=== PATIENT | female | born 1950 | race African-American/Black ===

== ENCOUNTER 2016-11-24 10:01 | Emergency (ER) | payer MEDICARE, MEDICAID ==
[~2016-11-24] VITALS: Ht 172.7 cm; Wt 109.0 kg
[~2016-11-24 10:01] MED LIST: ALBU17AE26 PO; ASPI-1159 PO; FLUT1DIS3 IH; HYDR-519 PO; LISI-651 PO; METH4TAB3 PO; MOME13HF2 INH; MONT10TA21 PO; OXYGEN; PHEN473S12 PO; TIOT18CA3 INH; ZOLP10TA2 PO
[2016-11-24] MEDS ORDERED: IPRATROPIUM BROMIDE (0.02%) 0.5MG/2.5ML NEB HHN STA (10:21)
[2016-11-24] MEDS ORDERED: METHYLPREDNISOLONE SOD SUCC 125 MG/2 ML VIAL IV STA (10:21)
[2016-11-24 10:58] LABS: BASOPHILS % 0.2 % (0.0-2.0); EOSINOPHILS % 0.1 % (0.0-5.0); HEMATOCRIT. 34.4 % (36.0-48.0); HEMOGLOBIN. 10.6 g/dL (12.0-16.0); LYMPHOCYTES % 10.6 % (20.0-50.0); MEAN CORPUSCULAR HEMOGLOBIN 23.5 pg (28.0-32.0); MEAN CORPUSCULAR VOLUME 75.8 fL (81.0-99.0); MEAN PLATELET VOLUME 7.7 fl (7.4-10.4); MONOCYTES % 7.6 % (2.0-8.0); NEUTROPHILS % 81.5 % (40.0-76.0); PLATELET 220 x1000/uL (130-400); RED BLOOD CELL COUNT 4.54 mill/uL (4.2-5.4); RED CELL DISTRIBUTION WIDTH 18.7 % (11.6-14.6)
[2016-11-24 11:04] LABS: CHLORIDE 107 mEq/L (98-107)
[2016-11-24 11:06] LABS: PROTHROMBIN TIME 10.7 sec
[2016-11-24 11:12] LABS: CARBON DIOXIDE 32 mEq/L (21-32)
[2016-11-24] MEDS: ALBUTEROL (0.083%) 2.5MG/3ML NEB HHN SCH ×3 (11:25→12:30)
[2016-11-24] MEDS ORDERED: HYDROCODONE/ACETAMINOPHEN 5/325MG TABLET PO ONE (12:00)
[2016-11-24 13:12] VITALS: BP 150/92
== END 2016-11-24 13:15 | disposition home or self-care (01) ==
LOC: ER 10:12
DX: J44.1 Chronic obstructive pulmonary disease with (acute) exacerbation (principal); I10 Essential (primary) hypertension; M19.90 Unspecified osteoarthritis, unspecified site; J45.909 Unspecified asthma, uncomplicated; Z79.82 Long term (current) use of aspirin; Z91.040 Latex allergy status
CPT/HCPCS: 36415; 71010; 80053; 85025; 85610; 93005; 94640; 96374; 99285; J2930; J7611

== ENCOUNTER 2017-11-24 10:54 | Inpatient (IN) | payer MEDICARE, MEDICAID ==
[~2017-11-24] VITALS: Ht 170.2 cm; Wt 104.3 kg
[2017-11-24] MEDS ORDERED: ASPIRIN 81MG TABLET PO STA (11:32)
[2017-11-24] MEDS ORDERED: METHYLPREDNISOLONE SOD SUCC 125 MG/2 ML VIAL IV STA (11:32)
[2017-11-24] MEDS ORDERED: ALBUTEROL (0.083%) 2.5MG/3ML NEB HHN STA (11:32)
[2017-11-24] MEDS ORDERED: IPRATROPIUM BROMIDE (0.02%) 0.5MG/2.5ML NEB HHN STA (11:32)
[2017-11-24 11:55] LABS: BASOPHILS % 0.5 % (0.0-2.0); EOSINOPHILS % 0.1 % (0.0-5.0); HEMATOCRIT. 40.4 % (36.0-48.0); HEMOGLOBIN. 13.2 g/dL (12.0-16.0); MEAN CORPUSCULAR HEMOGLOBIN 26.1 pg (28.0-32.0); MEAN CORPUSCULAR VOLUME 80.1 fL (81.0-99.0); MEAN PLATELET VOLUME 7.8 fl (7.4-10.4); MONOCYTES % 2.7 % (2.0-8.0); NEUTROPHILS % 84.7 % (40.0-76.0); PLATELET 204 x1000/uL (130-400); RED BLOOD CELL COUNT 5.05 mill/uL (4.2-5.4); RED CELL DISTRIBUTION WIDTH 19.4 % (11.6-14.6)
[2017-11-24] MEDS ORDERED: MAGNESIUM 2 G PREMIX 50 ML IV ONE (12:00)
[2017-11-24 12:01] LABS: CHLORIDE 107 mEq/L (98-107)
[2017-11-24 12:41] LABS: INR 1.1; PARTIAL THROMBOPLASTIN TIME 25.8 sec (23.4-31.0); PROTHROMBIN TIME 10.9 sec (9.4-11.6)
[2017-11-24] MEDS ORDERED: LIDOCAINE HCL/PF 1% 10 MG/ML 5ML VIAL ONE (13:15)
[2017-11-24] MEDS ORDERED: SODIUM BICARBONATE 4% (2.4MEQ) 5ML VIAL IV ONE (13:16)
[2017-11-24] MEDS ORDERED: KETOROLAC 30MG/ML VIAL IV ONE (14:15)
[2017-11-24] MEDS ORDERED: MAGNESIUM/ALUMINUM HYDROXIDE/SIMETHICONE 30ML UDC PO PRN (15:45)
[2017-11-24] MEDS ORDERED: NA PHOS,M-B/NA PHOS,DI-BA ENEMA 118ML PR PRN (15:45)
[2017-11-24] MEDS ORDERED: DIPHENHYDRAMINE 50MG/ML VIAL IV PRN (15:45)
[2017-11-24] MEDS ORDERED: ACETAMINOPHEN 325MG TABLET PO PRN (15:45)
[2017-11-24] MEDS ORDERED: ONDANSETRON HCL 4MG/2ML VIAL IV PRN (15:45)
[2017-11-24] MEDS ORDERED: GUAIFENESIN 200MG/10ML SUGAR FREE UDC PO PRN (15:45)
[2017-11-24] MEDS ORDERED: IPRATROPIUM/ALBUTEROL 0.5-3(2.5)MG/3ML NEB INH PRN (15:45)
[2017-11-24] MEDS ORDERED: DOCUSATE SODIUM 100MG CAPSULE PO PRN (15:45)
[2017-11-24] MEDS ORDERED: LORAZEPAM 2MG/ML CPJ IV PRN (15:45)
[2017-11-24 16:29] LABS: CHLORIDE 105 mEq/L (98-107)
[2017-11-24] MEDS: HYDROCODONE/ACETAMINOPHEN 5/325MG TABLET PO PRN (17:14)
[2017-11-24] MEDS ORDERED: METHYL SALICYLATE/MENTHOL CREAM 85GM TOP PRN (22:15)
[2017-11-24] MEDS ORDERED: LISI-604 MT (22:21)
[2017-11-24] MEDS: KETOROLAC 30MG/ML VIAL IV PRN (22:32)
[2017-11-24] MEDS: IPRATROPIUM/ALBUTEROL 0.5-3(2.5)MG/3ML NEB HHN PRN (22:36)
[2017-11-24] MEDS: ENOXAPARIN 30MG/0.3ML SYR SUBCUT SCH (22:51)
[2017-11-24] MEDS: ZOLPIDEM TARTRATE 5MG TABLET PO PRN (22:52)
[2017-11-24] MEDS: METHYLPREDNISOLONE SOD SUCC 125 MG/2 ML VIAL IV SCH (22:53)
[2017-11-24] MEDS ORDERED: LEVOFLOXACIN 500MG PREMIX 100 ML IV SCH (23:00)
[2017-11-24 23:51] VITALS: BP 160/107
[2017-11-25] VITALS: BP 171/111
[2017-11-25] MEDS: CLONIDINE 0.1MG TABLET PO PRN ×3 (00:37→18:29)
[2017-11-25] MEDS: HYDROCODONE/ACETAMINOPHEN 5/325MG TABLET PO PRN ×2 (02:04→07:00)
[2017-11-25 04:00] VITALS: BP 143/93
[2017-11-25] MEDS: KETOROLAC 30MG/ML VIAL IV PRN (04:32)
[2017-11-25] MEDS: METHYLPREDNISOLONE SOD SUCC 125 MG/2 ML VIAL IV SCH ×4 (04:32→20:51)
[2017-11-25] MEDS: IPRATROPIUM/ALBUTEROL 0.5-3(2.5)MG/3ML NEB HHN PRN ×3 (06:30→23:44)
[2017-11-25] MEDS ORDERED: HYDROCODONE/ACETAMINOPHEN 10/325MG TABLET PO PRN (07:30)
[2017-11-25] MEDS: ENOXAPARIN 30MG/0.3ML SYR SUBCUT SCH ×2 (08:46→20:52)
[2017-11-25] MEDS: ASPIRIN 81MG EC TABLET PO SCH (08:46)
[2017-11-25] MEDS: AMLODIPINE 5MG TABLET PO SCH (08:46)
[2017-11-25] MEDS: MORPHINE SULFATE 4 MG/ML CPJ (NOT FOR IM USE) IV PRN ×2 (08:47→20:51)
[2017-11-25 09:41] LABS: BASOPHILS % 0.3 % (0.0-2.0); HEMATOCRIT. 41.8 % (36.0-48.0); HEMOGLOBIN. 13.7 g/dL (12.0-16.0); LYMPHOCYTES % 10.1 % (20.0-50.0); MEAN CORPUSCULAR HEMOGLOBIN 26.4 pg (28.0-32.0); MEAN CORPUSCULAR VOLUME 80.5 fL (81.0-99.0); MEAN PLATELET VOLUME 8.5 fl (7.4-10.4); MONOCYTES % 7.8 % (2.0-8.0); NEUTROPHILS % 81.8 % (40.0-76.0); PLATELET 200 x1000/uL (130-400); RED BLOOD CELL COUNT 5.19 mill/uL (4.2-5.4); RED CELL DISTRIBUTION WIDTH 19.4 % (11.6-14.6)
[2017-11-25 09:44] LABS: CHLORIDE 103 mEq/L (98-107)
[2017-11-25 09:51] LABS: LDL CHOLESTEROL 131 mg/dL (5-100)
[2017-11-25 09:53] LABS: HDL CHOLESTEROL 84 mg/dL (40-59)
[2017-11-25] MEDS: HYDROCODONE/ACETAMINOPHEN 10/325MG TABLET PO PRN (12:19)
[2017-11-25 18:00] VITALS: BP 150/100
[2017-11-25 19:59] VITALS: BP 179/109
[2017-11-25 20:03] LABS: CLARITY URINE CLEAR (CLEAR); COLOR URINE YELLOW (YELLOW); KETONES URINE NEGATIVE (NEGATIVE); LEUKOCYTE ESTERASE URINE NEGATIVE (NEGATIVE); NITRITE URINE NEGATIVE (NEGATIVE); OCCULT BLOOD URINE NEGATIVE (NEGATIVE); PH URINE 6.5 (4.5-8.0); PROTEIN URINE NEGATIVE (NEGATIVE); SPECIFIC GRAVITY URINE 1.011 (1.005-1.030)
[2017-11-25 20:19] LABS: *AMPHETAMINES SCREEN URINE NEGATIVE (NEGATIVE); *BARBITURATES SCREEN URINE NEGATIVE (NEGATIVE)
[2017-11-25 20:20] LABS: *BENZODIAZEPINES SCREEN URINE PRESUMTIVE POSITIVE (NEGATIVE); *COCAINE SCREEN URINE NEGATIVE (NEGATIVE); CANNABINOID URINE SCREEN NEGATIVE (NEGATIVE); METHADONE URINE SCREEN NEGATIVE (NEGATIVE); OPIATES URINE SCREEN PRESUMTIVE POSITIVE (NEGATIVE); PHENCYCLIDINE URINE SCREEN NEGATIVE (NEGATIVE)
[2017-11-25] MEDS: LISINOPRIL 20MG TABLET PO SCH (22:31)
[2017-11-25] MEDS ORDERED: LEVOFLOXACIN 500MG PREMIX 100 ML IV SCH (23:00)
[2017-11-26] VITALS: BP 147/97
[2017-11-26] MEDS: HYDROCODONE/ACETAMINOPHEN 10/325MG TABLET PO PRN (00:09)
[2017-11-26] MEDS: ZOLPIDEM TARTRATE 5MG TABLET PO PRN (01:15)
[2017-11-26 04:00] VITALS: BP 130/92
[2017-11-26] MEDS: METHYLPREDNISOLONE SOD SUCC 125 MG/2 ML VIAL IV SCH ×2 (05:19→10:00)
[2017-11-26] MEDS: MORPHINE SULFATE 4 MG/ML CPJ (NOT FOR IM USE) IV PRN ×2 (05:20→08:19)
[2017-11-26 08:00] VITALS: BP 148/102
[2017-11-26] MEDS: ENOXAPARIN 30MG/0.3ML SYR SUBCUT SCH (08:18)
[2017-11-26] MEDS: ASPIRIN 81MG EC TABLET PO SCH (08:18)
[2017-11-26] MEDS: LISINOPRIL 20MG TABLET PO SCH (08:18)
[2017-11-26] MEDS: AMLODIPINE 5MG TABLET PO SCH (08:19)
[2017-11-26] MEDS: IPRATROPIUM/ALBUTEROL 0.5-3(2.5)MG/3ML NEB HHN PRN (09:03)
[2017-11-26 10:00] VITALS: BP 160/100
[2017-11-26] MEDS: CLONIDINE 0.1MG TABLET PO PRN (10:31)
[2017-11-26 11:14] VITALS: BP 155/104
== END 2017-11-26 12:07 | disposition home or self-care (01) | DRG 193 ==
LOC: ER 11:09 → OBSVTOIN 11:36 → 6WST 11:36 → EDBEDREQ 14:02 → ENRESERV 19:40 → 6WST 21:00
PROVIDERS: ADMIT Internal Medicine; ATTEND Internal Medicine
PROC: 02HV33Z Insertion of Infusion Device into Superior Vena Cava, Percutaneous Approach (ICD-10-PCS; principal; 2017-11-24)
PROC: B5181ZA Fluoroscopy of Superior Vena Cava using Low Osmolar Contrast, Guidance (ICD-10-PCS; 2017-11-24)
PROC: B548ZZA Ultrasonography of Superior Vena Cava, Guidance (ICD-10-PCS; 2017-11-24)
DX: J18.9 Pneumonia, unspecified organism (principal); J96.21 Acute and chronic respiratory failure with hypoxia; J44.1 Chronic obstructive pulmonary disease with (acute) exacerbation; J44.0 Chronic obstructive pulmonary disease with (acute) lower respiratory infection; D64.9 Anemia, unspecified; E66.09 Other obesity due to excess calories; G47.00 Insomnia, unspecified; G47.33 Obstructive sleep apnea (adult) (pediatric); K21.9 Gastro-esophageal reflux disease without esophagitis; Z60.2 Problems related to living alone; J20.9 Acute bronchitis, unspecified; I11.9 Hypertensive heart disease without heart failure; B19.20 Unspecified viral hepatitis C without hepatic coma; M19.90 Unspecified osteoarthritis, unspecified site; Z99.81 Dependence on supplemental oxygen; Z87.891 Personal history of nicotine dependence; Z79.82 Long term (current) use of aspirin; Z79.899 Other long term (current) drug therapy; Z91.040 Latex allergy status; Z68.36 Body mass index [BMI] 36.0-36.9, adult
CPT/HCPCS: 36415; 36569; 71045; 76937; 77001; 80048; 80053; 80061; 80305; 80307; 81003; 83880; 84439; 84443; 84484; 85025; 85379; 85610; 85730; 93005; 93306; 94640; 96365; 96375; 99285; C1725; G0378; J1650; J1885; J1956; J2270; J2930; J3475; J3490; J7040; J7611; J7620

== ENCOUNTER 2018-02-17 07:59 | Inpatient (IN) | payer MEDICARE, MEDICAID ==
[~2018-02-17] VITALS: Ht 170.2 cm; Wt 98.4 kg
[~2018-02-17 07:59] MED LIST changes: -FLUT1DIS3 IH; +LISI-604 MT; -LISI-651 PO; -METH4TAB3 PO; -MONT10TA21 PO; -OXYGEN
[2018-02-17] MEDS ORDERED: ALBUTEROL (0.083%) 2.5MG/3ML NEB HHN STA (08:14)
[2018-02-17] MEDS ORDERED: METHYLPREDNISOLONE SOD SUCC 125 MG/2 ML VIAL IV STA (08:14)
[2018-02-17] MEDS ORDERED: IPRATROPIUM BROMIDE (0.02%) 0.5MG/2.5ML NEB HHN STA (08:14)
[2018-02-17] MEDS ORDERED: ASPIRIN 81MG TABLET PO ONE (08:15)
[2018-02-17] MEDS ORDERED: DEXTROSE 50% WATER 50ML SYRINGE IV ONE (08:30)
[2018-02-17 08:52] LABS: CHLORIDE 106 mEq/L (98-107)
[2018-02-17 08:55] LABS: BASOPHILS % 0.2 % (0.0-2.0); EOSINOPHILS % 1.6 % (0.0-5.0); HEMATOCRIT. 41.6 % (36.0-48.0); HEMOGLOBIN. 13.7 g/dL (12.0-16.0); LYMPHOCYTES % 24.9 % (20.0-50.0); MEAN CORPUSCULAR HEMOGLOBIN 28.4 pg (28.0-32.0); MEAN PLATELET VOLUME 7.9 fl (7.4-10.4); MONOCYTES % 8.8 % (2.0-8.0); NEUTROPHILS % 64.5 % (40.0-76.0); PLATELET 234 x1000/uL (130-400); RED BLOOD CELL COUNT 4.83 mill/uL (4.2-5.4); RED CELL DISTRIBUTION WIDTH 17.4 % (11.6-14.6)
[2018-02-17 08:56] LABS: PARTIAL THROMBOPLASTIN TIME 24.8 sec (23.4-31.0)
[2018-02-17] MEDS ORDERED: HYDROCODONE/ACETAMINOPHEN 5/325MG TABLET PO ONE (09:45)
[2018-02-17] MEDS ORDERED: SODIUM CHLORIDE 0.9% 1000ML BAG (SEPSIS BOLUS) IV ONE (10:45)
[2018-02-17] MEDS ORDERED: PIPERACILLIN/TAZ 3.375G PREMIX 50 ML IV ONE (10:45)
[2018-02-17] MEDS ORDERED: VANCOMYCIN 1 G PREMIX 200 ML IV ONE (10:45)
[2018-02-17] MEDS ORDERED: IPRATROPIUM/ALBUTEROL 0.5-3(2.5)MG/3ML NEB HHN PRN (11:15)
[2018-02-17] MEDS: METHYLPREDNISOLONE SOD SUCC 40 MG/ML VIAL IV SCH ×2 (11:15→19:58)
[2018-02-17] MEDS ORDERED: PIPERACILLIN/TAZ 3.375G PREMIX 50 ML IV SCH (11:15)
[2018-02-17] MEDS ORDERED: CLONIDINE 0.1MG TABLET PO PRN (11:15)
[2018-02-17] MEDS ORDERED: BENZONATATE 100MG CAPSULE PO PRN (11:30)
[2018-02-17] MEDS: IPRATROPIUM/ALBUTEROL 0.5-3(2.5)MG/3ML NEB HHN SCH ×3 (12:00→20:52)
[2018-02-17 14:45] LABS: CLARITY URINE CLEAR (CLEAR); COLOR URINE YELLOW (YELLOW); KETONES URINE NEGATIVE (NEGATIVE); LEUKOCYTE ESTERASE URINE NEGATIVE (NEGATIVE); NITRITE URINE NEGATIVE (NEGATIVE); OCCULT BLOOD URINE NEGATIVE (NEGATIVE); PH URINE 5.5 (4.5-8.0); PROTEIN URINE NEGATIVE (NEGATIVE); SPECIFIC GRAVITY URINE 1.013 (1.005-1.030); UROBILINOGEN URINE 0.2 E.U./dL (0.2-1.0)
[2018-02-17 15:01] LABS: *AMPHETAMINES SCREEN URINE NEGATIVE (NEGATIVE); *BARBITURATES SCREEN URINE NEGATIVE (NEGATIVE); *BENZODIAZEPINES SCREEN URINE PRESUMTIVE POSITIVE (NEGATIVE); *COCAINE SCREEN URINE NEGATIVE (NEGATIVE); METHADONE URINE SCREEN NEGATIVE (NEGATIVE)
[2018-02-17 15:02] LABS: CANNABINOID URINE SCREEN NEGATIVE (NEGATIVE); OPIATES URINE SCREEN PRESUMTIVE POSITIVE (NEGATIVE); PHENCYCLIDINE URINE SCREEN NEGATIVE (NEGATIVE)
[2018-02-17 18:00] VITALS: BP 146/97
[2018-02-17 18:21] VITALS: BP 146/97
[2018-02-17 18:50] VITALS: BP 146/47
[2018-02-17] MEDS: VANCOMYCIN 750 MG PREMIX 150 ML IV SCH (19:57)
[2018-02-17] MEDS: PIPERACILLIN/TAZ 3.375G PREMIX 50 ML IV SCH (19:58)
[2018-02-17] MEDS: MORPHINE SULFATE 4 MG/ML CPJ (NOT FOR IM USE) IV PRN (19:58)
[2018-02-17 20:00] VITALS: BP 140/89
[2018-02-17] MEDS: ATORVASTATIN CALCIUM 20MG TABLET PO SCH (22:06)
[2018-02-17] MEDS: MONTELUKAST SODIUM 10MG TABLET PO SCH (22:06)
[2018-02-17] MEDS: AMLODIPINE 5MG TABLET PO SCH (22:06)
[2018-02-17] MEDS: ZOLPIDEM TARTRATE 5MG TABLET PO PRN (22:10)
[2018-02-17] MEDS: HYDROCODONE/ACETAMINOPHEN 5/325MG TABLET PO PRN (22:11)
[2018-02-17] MEDS ORDERED: AZITHROMYCIN 500 MG in DEXT 5% WATER 250 ML IV SCH (23:30)
[2018-02-18] VITALS: BP 138/96
[2018-02-18] MEDS: MORPHINE SULFATE 4 MG/ML CPJ (NOT FOR IM USE) IV PRN ×5 (00:07→22:14)
[2018-02-18] MEDS: IPRATROPIUM/ALBUTEROL 0.5-3(2.5)MG/3ML NEB HHN SCH ×5 (01:03→16:45)
[2018-02-18] MEDS: AZITHROMYCIN 500 MG in DEXT 5% WATER 250 ML IV SCH (02:23)
[2018-02-18] MEDS: METHYLPREDNISOLONE SOD SUCC 40 MG/ML VIAL IV SCH ×3 (02:23→20:02)
[2018-02-18] MEDS: PIPERACILLIN/TAZ 3.375G PREMIX 50 ML IV SCH ×3 (02:23→18:27)
[2018-02-18 04:00] VITALS: BP 146/99
[2018-02-18 07:32] LABS: HEMATOCRIT. 40.4 % (36.0-48.0); HEMOGLOBIN. 13.4 g/dL (12.0-16.0); MEAN CORPUSCULAR HEMOGLOBIN 28.6 pg (28.0-32.0); MEAN CORPUSCULAR VOLUME 86.4 fL (81.0-99.0); MEAN PLATELET VOLUME 8.3 fl (7.4-10.4); PLATELET 220 x1000/uL (130-400); RED BLOOD CELL COUNT 4.68 mill/uL (4.2-5.4); RED CELL DISTRIBUTION WIDTH 17.2 % (11.6-14.6)
[2018-02-18 07:33] LABS: CHLORIDE 106 mEq/L (98-107)
[2018-02-18] MEDS: VANCOMYCIN 750 MG PREMIX 150 ML IV SCH ×2 (07:49→21:19)
[2018-02-18 08:00] VITALS: BP 126/83
[2018-02-18] MEDS: AMLODIPINE 5MG TABLET PO SCH (09:23)
[2018-02-18] MEDS: HYDROCODONE/ACETAMINOPHEN 5/325MG TABLET PO PRN (11:21)
[2018-02-18 12:00] VITALS: BP 112/83
[2018-02-18] MEDS: POLYETHYLENE GLYCOL 3350 (17GM) 1 DOSE PACK PO SCH (13:24)
[2018-02-18 13:25] LABS: PLATELET ESTIMATE NORMAL
[2018-02-18] MEDS: LISINOPRIL 40MG TABLET PO SCH (13:25)
[2018-02-18] MEDS: DOCUSATE SODIUM 250MG CAPSULE PO SCH (13:25)
[2018-02-18] MEDS: ASPIRIN 81MG TABLET PO SCH (13:25)
[2018-02-18 16:00] VITALS: BP 133/86
[2018-02-18] MEDS: HYDROCODONE/ACETAMINOPHEN 10/325MG TABLET PO PRN (17:39)
[2018-02-18 20:00] VITALS: BP 126/95
[2018-02-18] MEDS: ZOLPIDEM TARTRATE 5MG TABLET PO PRN (22:14)
[2018-02-18] MEDS: ATORVASTATIN CALCIUM 20MG TABLET PO SCH (22:14)
[2018-02-18] MEDS: MONTELUKAST SODIUM 10MG TABLET PO SCH (22:14)
[2018-02-19] VITALS: BP 130/94
[2018-02-19] MEDS: IPRATROPIUM/ALBUTEROL 0.5-3(2.5)MG/3ML NEB HHN SCH ×6 (00:02→21:59)
[2018-02-19] MEDS: AZITHROMYCIN 500 MG in DEXT 5% WATER 250 ML IV SCH (01:01)
[2018-02-19] MEDS: HYDROCODONE/ACETAMINOPHEN 10/325MG TABLET PO PRN ×4 (01:02→22:43)
[2018-02-19] MEDS: PIPERACILLIN/TAZ 3.375G PREMIX 50 ML IV SCH ×3 (02:38→18:05)
[2018-02-19] MEDS: METHYLPREDNISOLONE SOD SUCC 40 MG/ML VIAL IV SCH ×2 (02:38→17:01)
[2018-02-19] MEDS: MORPHINE SULFATE 4 MG/ML CPJ (NOT FOR IM USE) IV PRN ×3 (03:28→19:55)
[2018-02-19 04:00] VITALS: BP 138/91
[2018-02-19 05:40] LABS: HEMATOCRIT. 39.8 % (36.0-48.0); HEMOGLOBIN. 13.2 g/dL (12.0-16.0); MEAN CORPUSCULAR HEMOGLOBIN 28.6 pg (28.0-32.0); MEAN PLATELET VOLUME 8.1 fl (7.4-10.4); PLATELET 239 x1000/uL (130-400); RED BLOOD CELL COUNT 4.62 mill/uL (4.2-5.4); RED CELL DISTRIBUTION WIDTH 17.3 % (11.6-14.6)
[2018-02-19 05:58] LABS: CHLORIDE 105 mEq/L (98-107)
[2018-02-19 06:12] LABS: C REACTIVE PROTEIN QUANT 8.1 mg/L (0.0-3.0)
[2018-02-19 08:00] VITALS: BP 131/93
[2018-02-19] MEDS: VANCOMYCIN 750 MG PREMIX 150 ML IV SCH ×3 (09:29→21:48)
[2018-02-19] MEDS: ASPIRIN 81MG TABLET PO SCH (09:30)
[2018-02-19] MEDS: DOCUSATE SODIUM 250MG CAPSULE PO SCH (09:31)
[2018-02-19] MEDS: LISINOPRIL 40MG TABLET PO SCH (09:31)
[2018-02-19] MEDS: POLYETHYLENE GLYCOL 3350 (17GM) 1 DOSE PACK PO SCH (09:31)
[2018-02-19 11:04] LABS: PLATELET ESTIMATE NORMAL
[2018-02-19 12:00] VITALS: BP 128/96
[2018-02-19] MEDS: BUDESONIDE 0.5MG/2ML NEB HHN SCH ×2 (12:35→21:58)
[2018-02-19 16:00] VITALS: BP 137/77
[2018-02-19 20:00] VITALS: BP 140/97
[2018-02-19] MEDS: ATORVASTATIN CALCIUM 20MG TABLET PO SCH (21:47)
[2018-02-19] MEDS: MONTELUKAST SODIUM 10MG TABLET PO SCH (21:47)
[2018-02-19] MEDS: ZOLPIDEM TARTRATE 5MG TABLET PO PRN (22:42)
[2018-02-20] VITALS: BP 131/95
[2018-02-20] MEDS: IPRATROPIUM/ALBUTEROL 0.5-3(2.5)MG/3ML NEB HHN SCH ×7 (01:25→23:53)
[2018-02-20] MEDS: PIPERACILLIN/TAZ 3.375G PREMIX 50 ML IV SCH ×2 (02:29→10:44)
[2018-02-20] MEDS: AZITHROMYCIN 500 MG in DEXT 5% WATER 250 ML IV SCH (02:29)
[2018-02-20 04:00] VITALS: BP 129/91
[2018-02-20] MEDS: MORPHINE SULFATE 4 MG/ML CPJ (NOT FOR IM USE) IV PRN ×4 (04:45→20:04)
[2018-02-20] MEDS: VANCOMYCIN 750 MG PREMIX 150 ML IV SCH ×3 (06:46→21:14)
[2018-02-20 08:00] VITALS: BP 137/88
[2018-02-20] MEDS: BUDESONIDE 0.5MG/2ML NEB HHN SCH ×2 (09:04→19:55)
[2018-02-20] MEDS: METHYLPREDNISOLONE SOD SUCC 40 MG/ML VIAL IV SCH (09:14)
[2018-02-20] MEDS: POLYETHYLENE GLYCOL 3350 (17GM) 1 DOSE PACK PO SCH (09:14)
[2018-02-20] MEDS: LISINOPRIL 40MG TABLET PO SCH (09:14)
[2018-02-20] MEDS: DOCUSATE SODIUM 250MG CAPSULE PO SCH (09:15)
[2018-02-20] MEDS: ASPIRIN 81MG TABLET PO SCH (09:15)
[2018-02-20 12:00] VITALS: BP 144/75
[2018-02-20] MEDS: HYDROCODONE/ACETAMINOPHEN 10/325MG TABLET PO PRN ×3 (13:35→22:55)
[2018-02-20 16:00] VITALS: BP 146/98
[2018-02-20 19:58] VITALS: BP 142/97
[2018-02-20] MEDS: ATORVASTATIN CALCIUM 20MG TABLET PO SCH (20:04)
[2018-02-20] MEDS: MONTELUKAST SODIUM 10MG TABLET PO SCH (20:04)
[2018-02-20] MEDS: ZOLPIDEM TARTRATE 5MG TABLET PO PRN (23:50)
[2018-02-21] VITALS (7 sets, daily range): BP systolic 111–136; BP diastolic 70–97
[2018-02-21] MEDS: AZITHROMYCIN 500 MG in DEXT 5% WATER 250 ML IV SCH (01:45)
[2018-02-21] MEDS: MORPHINE SULFATE 4 MG/ML CPJ (NOT FOR IM USE) IV PRN ×4 (03:02→20:05)
[2018-02-21] MEDS: IPRATROPIUM/ALBUTEROL 0.5-3(2.5)MG/3ML NEB HHN SCH ×5 (03:47→19:54)
[2018-02-21] MEDS: VANCOMYCIN 750 MG PREMIX 150 ML IV SCH ×2 (05:16→14:24)
[2018-02-21] MEDS: HYDROCODONE/ACETAMINOPHEN 10/325MG TABLET PO PRN ×3 (05:31→18:16)
[2018-02-21] MEDS: BUDESONIDE 0.5MG/2ML NEB HHN SCH ×2 (08:12→19:57)
[2018-02-21] MEDS: POLYETHYLENE GLYCOL 3350 (17GM) 1 DOSE PACK PO SCH (08:57)
[2018-02-21] MEDS: LISINOPRIL 40MG TABLET PO SCH (08:58)
[2018-02-21] MEDS: DOCUSATE SODIUM 250MG CAPSULE PO SCH (08:58)
[2018-02-21] MEDS: ASPIRIN 81MG TABLET PO SCH (08:58)
[2018-02-21] MEDS ORDERED: METHYLPREDNISOLONE SOD SUCC 40 MG/ML VIAL IV SCH (09:00)
[2018-02-21] MEDS ORDERED: PREDNISONE 20MG TABLET PO SCH (09:00)
[2018-02-21] MEDS: ATORVASTATIN CALCIUM 20MG TABLET PO SCH (20:04)
[2018-02-21] MEDS: MONTELUKAST SODIUM 10MG TABLET PO SCH (20:04)
== END 2018-02-21 21:45 | disposition home health service (06) | DRG 871 ==
LOC: ER 08:26 → 7WST 10:48 → EDBEDREQ 10:57 → EDBEDREQTM 10:57 → ENRESERV 14:54
PROVIDERS: ADMIT Internal Medicine; ATTEND Internal Medicine
PROC: 5A09357 Assistance with Respiratory Ventilation, Less than 24 Consecutive Hours, Continuous Positive Airway Pressure (ICD-10-PCS; principal; 2018-02-19)
PROC: 02HV33Z Insertion of Infusion Device into Superior Vena Cava, Percutaneous Approach (ICD-10-PCS; 2018-02-19)
PROC: B548ZZA Ultrasonography of Superior Vena Cava, Guidance (ICD-10-PCS; 2018-02-19)
DX: A41.9 Sepsis, unspecified organism (principal); J96.20 Acute and chronic respiratory failure, unspecified whether with hypoxia or hypercapnia; J44.1 Chronic obstructive pulmonary disease with (acute) exacerbation; E44.1 Mild protein-calorie malnutrition; J45.901 Unspecified asthma with (acute) exacerbation; M86.9 Osteomyelitis, unspecified; I10 Essential (primary) hypertension; E78.5 Hyperlipidemia, unspecified; M70.32 Other bursitis of elbow, left elbow; M19.90 Unspecified osteoarthritis, unspecified site; M19.022 Primary osteoarthritis, left elbow; Z99.81 Dependence on supplemental oxygen; Z88.8 Allergy status to other drugs, medicaments and biological substances; Z91.040 Latex allergy status
CPT/HCPCS: 36415; 36569; 71045; 73080; 76937; 80048; 80053; 80202; 80305; 81003; 82962; 83605; 83880; 84484; 85025; 85610; 85651; 85730; 86140; 87040; 87086; 93005; 94640; 96365; 96366; 96368; 96375; 99285; C1725; C1893; J0456; J2270; J2543; J2920; J2930; J3370; J7030; J7040; J7060; J7512; J7611; J7620; J7626; A4315

== ENCOUNTER 2018-10-31 05:51 | Emergency (ER) | payer MEDICARE, MEDICAID ==
[~2018-10-31] VITALS: Ht 165.1 cm; Wt 100.0 kg
[~2018-10-31 05:51] MED LIST changes: +DOCU250C14 MT; +POLY17PO3 MT
[2018-10-31] MEDS ORDERED: ALBUTEROL (0.083%) 2.5MG/3ML NEB HHN STA (06:04)
[2018-10-31] MEDS ORDERED: IPRATROPIUM BROMIDE (0.02%) 0.5MG/2.5ML NEB HHN STA (06:04)
[2018-10-31] MEDS ORDERED: ASPIRIN 81MG TABLET PO ONE (06:15)
[2018-10-31 06:35] LABS: BASOPHILS % 0.6 % (0.0-2.0); EOSINOPHILS % 3.7 % (0.0-5.0); HEMATOCRIT. 41.4 % (36.0-48.0); HEMOGLOBIN. 13.5 g/dL (12.0-16.0); LYMPHOCYTES % 24.6 % (20.0-50.0); MEAN CORPUSCULAR VOLUME 86.1 fL (81.0-99.0); MEAN PLATELET VOLUME 8.1 fl (7.4-10.4); NEUTROPHILS % 64.1 % (40.0-76.0); PLATELET 225 x1000/uL (130-400); RED BLOOD CELL COUNT 4.81 mill/uL (4.2-5.4); RED CELL DISTRIBUTION WIDTH 16.8 % (11.6-14.6)
[2018-10-31 06:41] LABS: CHLORIDE 106 mEq/L (98-107)
[2018-10-31] MEDS ORDERED: SODIUM CHLORIDE 0.9% 1,000 ML IV ONE (07:33)
[2018-10-31] MEDS ORDERED: AZITHROMYCIN 500 MG in DEXT 5% WATER 250 ML IV SCH (07:45)
[2018-10-31] MEDS ORDERED: METHYLPREDNISOLONE SOD SUCC 125 MG/2 ML VIAL IV STA (08:22)
[2018-10-31 09:14] VITALS: BP 115/67
== END 2018-10-31 09:25 | disposition home or self-care (01) ==
LOC: ER 05:51
DX: J44.1 Chronic obstructive pulmonary disease with (acute) exacerbation (principal); I10 Essential (primary) hypertension; Z88.8 Allergy status to other drugs, medicaments and biological substances; Z91.040 Latex allergy status; Z87.891 Personal history of nicotine dependence
CPT/HCPCS: 36415; 71045; 80053; 83880; 84484; 85025; 93005; 94644; 96365; 96375; 99285; J0456; J2930; J7030; J7060; J7611

== ENCOUNTER 2019-03-13 13:39 | Emergency (ER) | payer MEDICARE, MEDICAID ==
[~2019-03-13] VITALS: Ht 172.7 cm; Wt 97.0 kg
[~2019-03-13 13:39] MED LIST changes: -ASPI-1159 PO; +ASPI-1393 PO
[2019-03-13] MEDS ORDERED: PREDNISONE 20MG TABLET PO NR (15:00)
[2019-03-13] MEDS ORDERED: MORPHINE SULFATE 4 MG/ML CPJ (NOT FOR IM USE) IV NR (15:00)
[2019-03-13] MEDS ORDERED: IPRATROPIUM/ALBUTEROL 0.5-3(2.5)MG/3ML NEB HHN NR (15:00)
[2019-03-13 18:10] VITALS: BP 129/97
== END 2019-03-13 18:47 | disposition home or self-care (01) ==
LOC: ER 13:39
DX: M19.011 Primary osteoarthritis, right shoulder (principal); J44.1 Chronic obstructive pulmonary disease with (acute) exacerbation; I10 Essential (primary) hypertension; Z99.81 Dependence on supplemental oxygen; Z88.8 Allergy status to other drugs, medicaments and biological substances; Z91.040 Latex allergy status; Z79.82 Long term (current) use of aspirin
CPT/HCPCS: 71045; 94640; 96374; 99283; J2270; J7512; J7620

== ENCOUNTER 2019-06-13 16:05 | Inpatient (IN) | payer MEDICARE, MEDICAID ==
[~2019-06-13] VITALS: Ht 170.2 cm; Wt 102.1 kg
[~2019-06-13 16:05] MED LIST changes: -ASPI-1393 PO; +ASPI-1497 PO
[2019-06-13] MEDS ORDERED: ALBUTEROL (0.083%) 2.5MG/3ML NEB HHN ONE (17:15)
[2019-06-13] MEDS ORDERED: METHYLPREDNISOLONE SOD SUCC 125 MG/2 ML VIAL IV ONE (17:15)
[2019-06-13] MEDS ORDERED: IPRATROPIUM BROMIDE (0.02%) 0.5MG/2.5ML NEB HHN ONE (17:15)
[2019-06-13] MEDS ORDERED: CLONIDINE 0.1MG TABLET PO PRN (17:30)
[2019-06-13] MEDS ORDERED: ONDANSETRON HCL 4MG/2ML INJ IV PRN (17:30)
[2019-06-13] MEDS ORDERED: ACETAMINOPHEN 325MG TABLET PO PRN (17:30)
[2019-06-13 17:39] LABS: HEMATOCRIT. 42.3 % (36.0-48.0); MEAN CORPUSCULAR HEMOGLOBIN 27.5 pg (28.0-32.0); MEAN CORPUSCULAR VOLUME 83.2 fL (81.0-99.0); MEAN PLATELET VOLUME 8.6 fl (7.4-10.4); PLATELET 178 x1000/uL (130-400); RED BLOOD CELL COUNT 5.09 mill/uL (4.2-5.4); RED CELL DISTRIBUTION WIDTH 17.2 % (11.6-14.6)
[2019-06-13 17:46] LABS: CHLORIDE 109 mEq/L (98-107)
[2019-06-13 17:53] LABS: PHOSPHORUS 2.4 mg/dL (2.5-4.9)
[2019-06-13 17:56] LABS: PLATELET ESTIMATE NORMAL
[2019-06-13] MEDS ORDERED: MORPHINE SULFATE 4 MG/ML CPJ (NOT FOR IM USE) IV ONE (19:15)
[2019-06-13] MEDS ORDERED: IPRATROPIUM/ALBUTEROL 0.5-3(2.5)MG/3ML NEB HHN ONE (20:00)
[2019-06-13] MEDS: METHYLPREDNISOLONE SOD SUCC 125 MG/2 ML VIAL IV SCH (23:00)
[2019-06-14 04:27] VITALS: BP 151/101
[2019-06-14] MEDS: METHYLPREDNISOLONE SOD SUCC 125 MG/2 ML VIAL IV SCH ×4 (04:31→23:04)
[2019-06-14] MEDS: DIPHENHYDRAMINE 50MG/ML VIAL IV PRN ×2 (05:04→11:31)
[2019-06-14 05:06] VITALS: BP 137/101
[2019-06-14] MEDS ORDERED: ZOLPIDEM TARTRATE 5MG TABLET PO PRN ×2 (05:15→13:30)
[2019-06-14] MEDS: HYDROCODONE/ACETAMINOPHEN 5/325MG TABLET PO PRN ×2 (05:32→12:09)
[2019-06-14] MEDS: IPRATROPIUM/ALBUTEROL 0.5-3(2.5)MG/3ML NEB HHN PRN ×3 (07:50→15:48)
[2019-06-14 08:00] VITALS: BP 154/88
[2019-06-14 12:00] VITALS: BP 147/92
[2019-06-14] MEDS ORDERED: GUAIFENESIN 200MG TABLET PO PRN (13:30)
[2019-06-14 16:00] VITALS: BP 129/92
[2019-06-14] MEDS: DOCUSATE SODIUM 250MG CAPSULE PO SCH (17:35)
[2019-06-14] MEDS: LISINOPRIL 20MG TABLET PO SCH (17:36)
[2019-06-14] MEDS: HYDROCODONE/ACETAMINOPHEN 10/325MG TABLET PO PRN (17:37)
[2019-06-14] MEDS ORDERED: POLYETHYLENE GLYCOL 3350 (17GM) 1 DOSE PACK PO PRN (18:00)
[2019-06-14 20:00] VITALS: BP 131/94
[2019-06-14] MEDS: IPRATROPIUM/ALBUTEROL 0.5-3(2.5)MG/3ML NEB HHN SCH (20:47)
[2019-06-14] MEDS: BUDESONIDE 0.5MG/2ML NEB HHN SCH (20:47)
[2019-06-14] MEDS: MORPHINE SULFATE 2 MG/ML CPJ (NOT FOR IM USE) IV PRN (23:05)
[2019-06-15] VITALS: BP 129/89
[2019-06-15] MEDS: IPRATROPIUM/ALBUTEROL 0.5-3(2.5)MG/3ML NEB HHN SCH ×6 (00:40→21:04)
[2019-06-15] MEDS: ACETYLCYSTEINE 100MG/ML 10% VIAL 4ML INH SCH ×4 (00:41→16:59)
[2019-06-15] MEDS: METHYLPREDNISOLONE SOD SUCC 40 MG/ML VIAL IV SCH ×3 (01:00→17:42)
[2019-06-15] MEDS: HYDROCODONE/ACETAMINOPHEN 10/325MG TABLET PO PRN ×3 (01:42→21:51)
[2019-06-15 04:00] VITALS: BP 136/83
[2019-06-15] MEDS: MORPHINE SULFATE 2 MG/ML CPJ (NOT FOR IM USE) IV PRN ×2 (05:31→12:53)
[2019-06-15 08:00] VITALS: BP 111/84
[2019-06-15] MEDS: ASPIRIN 81MG EC TABLET PO SCH (08:41)
[2019-06-15] MEDS: DOCUSATE SODIUM 250MG CAPSULE PO SCH ×2 (08:42→17:42)
[2019-06-15] MEDS: LISINOPRIL 20MG TABLET PO SCH (08:42)
[2019-06-15] MEDS: POLYETHYLENE GLYCOL 3350 (17GM) 1 DOSE PACK PO SCH ×2 (08:43→20:09)
[2019-06-15] MEDS: BUDESONIDE 0.5MG/2ML NEB HHN SCH ×2 (08:54→21:04)
[2019-06-15 10:59] LABS: HEMATOCRIT. 40.7 % (36.0-48.0); HEMOGLOBIN. 12.9 g/dL (12.0-16.0); MEAN CORPUSCULAR HEMOGLOBIN 26.9 pg (28.0-32.0); MEAN CORPUSCULAR VOLUME 84.5 fL (81.0-99.0); MEAN PLATELET VOLUME 8.9 fl (7.4-10.4); PLATELET 217 x1000/uL (130-400); RED BLOOD CELL COUNT 4.81 mill/uL (4.2-5.4); RED CELL DISTRIBUTION WIDTH 17.3 % (11.6-14.6)
[2019-06-15 11:04] LABS: CHLORIDE 106 mEq/L (98-107)
[2019-06-15 11:10] LABS: LDL CHOLESTEROL 122 mg/dL (5-100)
[2019-06-15 11:12] LABS: HDL CHOLESTEROL 71 mg/dL (40-59)
[2019-06-15 12:00] VITALS: BP 148/89
[2019-06-15 13:01] LABS: *BARBITURATES SCREEN URINE NEGATIVE (NEGATIVE); *BENZODIAZEPINES SCREEN URINE NEGATIVE (NEGATIVE); *COCAINE SCREEN URINE NEGATIVE (NEGATIVE); METHADONE URINE SCREEN NEGATIVE (NEGATIVE)
[2019-06-15 13:03] LABS: *AMPHETAMINES SCREEN URINE NEGATIVE (NEGATIVE); CANNABINOID URINE SCREEN NEGATIVE (NEGATIVE); OPIATES URINE SCREEN PRESUMTIVE POSITIVE (NEGATIVE); PHENCYCLIDINE URINE SCREEN NEGATIVE (NEGATIVE)
[2019-06-15] MEDS ORDERED: TERBUTALINE SULFATE 1MG/ML VIAL SUBCUT NR (15:15)
[2019-06-15 16:10] VITALS: BP 126/91
[2019-06-15 20:00] VITALS: BP 128/92
[2019-06-15] MEDS: ATORVASTATIN CALCIUM 20MG TABLET PO SCH (21:51)
[2019-06-15] MEDS: ZOLPIDEM TARTRATE 5MG TABLET PO PRN (22:50)
[2019-06-16] VITALS: BP 121/91
[2019-06-16] MEDS: IPRATROPIUM/ALBUTEROL 0.5-3(2.5)MG/3ML NEB HHN SCH ×6 (01:32→21:18)
[2019-06-16] MEDS: METHYLPREDNISOLONE SOD SUCC 40 MG/ML VIAL IV SCH ×3 (01:51→17:19)
[2019-06-16] MEDS: MORPHINE SULFATE 2 MG/ML CPJ (NOT FOR IM USE) IV PRN ×2 (01:52→10:00)
[2019-06-16 04:00] VITALS: BP 109/72
[2019-06-16 08:00] VITALS: BP 117/88
[2019-06-16 08:42] LABS: PLATELET ESTIMATE NORMAL
[2019-06-16] MEDS: LISINOPRIL 20MG TABLET PO SCH (09:00)
[2019-06-16] MEDS: ACETYLCYSTEINE 100MG/ML 10% VIAL 4ML INH SCH ×2 (09:25→17:05)
[2019-06-16] MEDS: DOCUSATE SODIUM 250MG CAPSULE PO SCH ×2 (09:50→17:19)
[2019-06-16] MEDS: ASPIRIN 81MG EC TABLET PO SCH (09:50)
[2019-06-16] MEDS: BUDESONIDE 0.5MG/2ML NEB HHN SCH ×2 (13:10→21:18)
[2019-06-16] MEDS: HYDROCODONE/ACETAMINOPHEN 10/325MG TABLET PO PRN ×2 (15:45→22:25)
[2019-06-16 16:00] VITALS: BP 123/82
[2019-06-16 20:00] VITALS: BP 136/87
[2019-06-16] MEDS: ATORVASTATIN CALCIUM 20MG TABLET PO SCH (20:22)
[2019-06-16] MEDS: ZOLPIDEM TARTRATE 5MG TABLET PO PRN (23:40)
[2019-06-17] VITALS: BP 120/90
[2019-06-17] MEDS: IPRATROPIUM/ALBUTEROL 0.5-3(2.5)MG/3ML NEB HHN SCH ×5 (00:46→16:15)
[2019-06-17] MEDS: ACETYLCYSTEINE 100MG/ML 10% VIAL 4ML INH SCH ×3 (00:47→16:12)
[2019-06-17] MEDS: METHYLPREDNISOLONE SOD SUCC 40 MG/ML VIAL IV SCH ×3 (01:02→16:09)
[2019-06-17] MEDS: MORPHINE SULFATE 2 MG/ML CPJ (NOT FOR IM USE) IV PRN ×2 (01:06→10:11)
[2019-06-17 04:00] VITALS: BP 143/93
[2019-06-17] MEDS: HYDROCODONE/ACETAMINOPHEN 10/325MG TABLET PO PRN ×2 (04:52→16:09)
[2019-06-17 08:00] VITALS: BP 113/86
[2019-06-17] MEDS: BUDESONIDE 0.5MG/2ML NEB HHN SCH (08:23)
[2019-06-17] MEDS: LISINOPRIL 20MG TABLET PO SCH (09:00)
[2019-06-17] MEDS: DOCUSATE SODIUM 250MG CAPSULE PO SCH ×2 (09:58→16:09)
[2019-06-17] MEDS: POLYETHYLENE GLYCOL 3350 (17GM) 1 DOSE PACK PO SCH (09:58)
[2019-06-17] MEDS: ASPIRIN 81MG EC TABLET PO SCH (09:58)
[2019-06-17 16:00] VITALS: BP 118/70
[2019-06-17] MEDS ORDERED: P20 MT (16:14)
[2019-06-17] MEDS ORDERED: ATOR20TA PO (16:14)
[2019-06-17] MEDS ORDERED: ALBU18HF2 IH (16:14)
[2019-06-17] MEDS ORDERED: PROT20 MT (16:14)
[2019-06-17] MEDS ORDERED: MAGNESIUM CITRATE 300ML SOLUTION PO SCH (17:00)
[2019-06-17 19:36] VITALS: BP 113/86
== END 2019-06-17 20:00 | disposition home or self-care (01) | DRG 189 ==
LOC: ER 16:05 → 5WST 17:17 → ENRESERV 20:28
PROVIDERS: ADMIT Internal Medicine; ATTEND Internal Medicine
DX: J96.20 Acute and chronic respiratory failure, unspecified whether with hypoxia or hypercapnia (principal); J44.1 Chronic obstructive pulmonary disease with (acute) exacerbation; Z99.81 Dependence on supplemental oxygen; K21.9 Gastro-esophageal reflux disease without esophagitis; I11.0 Hypertensive heart disease with heart failure; G47.33 Obstructive sleep apnea (adult) (pediatric); E66.9 Obesity, unspecified; I50.9 Heart failure, unspecified; M19.90 Unspecified osteoarthritis, unspecified site; G47.00 Insomnia, unspecified; Z91.040 Latex allergy status; Z87.891 Personal history of nicotine dependence; Z68.35 Body mass index [BMI] 35.0-35.9, adult; Z88.8 Allergy status to other drugs, medicaments and biological substances; Z79.82 Long term (current) use of aspirin
CPT/HCPCS: 36415; 71045; 80048; 80053; 80061; 80305; 83735; 83880; 84100; 84443; 84484; 85025; 93005; 93970; 94640; 94644; 96374; 97162; 99291; C1893; J1200; J2270; J2405; J2920; J2930; J3105; J7608; J7611; J7620; J7626

== ENCOUNTER 2019-06-28 03:02 | Inpatient (IN) | payer MEDICARE, MEDICAID ==
[~2019-06-28] VITALS: Ht 170.2 cm; Wt 105.8 kg
[~2019-06-28 03:02] MED LIST changes: +ALBU18HF2 IH; +ATOR20TA PO; +P20 MT; +PROT20 MT
[2019-06-28] MEDS ORDERED: IPRATROPIUM BROMIDE (0.02%) 0.5MG/2.5ML NEB HHN STA (03:27)
[2019-06-28] MEDS ORDERED: ONDANSETRON HCL 4MG/2ML INJ IV STA (03:27)
[2019-06-28] MEDS ORDERED: METHYLPREDNISOLONE SOD SUCC 125 MG/2 ML VIAL IV STA (03:27)
[2019-06-28] MEDS: ALBUTEROL (0.083%) 2.5MG/3ML NEB HHN SCH ×3 (03:50→04:25)
[2019-06-28 04:15] LABS: HEMOGLOBIN. 13.1 g/dL (12.0-16.0); MEAN CORPUSCULAR VOLUME 84.3 fL (81.0-99.0); MEAN PLATELET VOLUME 8.5 fl (7.4-10.4); PLATELET 202 x1000/uL (130-400); RED BLOOD CELL COUNT 4.86 mill/uL (4.2-5.4); RED CELL DISTRIBUTION WIDTH 17.3 % (11.6-14.6)
[2019-06-28 04:22] LABS: CHLORIDE 107 mEq/L (98-107)
[2019-06-28 04:33] LABS: PLATELET ESTIMATE NORMAL
[2019-06-28] MEDS ORDERED: MORPHINE SULFATE 2 MG/ML CPJ (NOT FOR IM USE) IV ONE (04:45)
[2019-06-28] MEDS ORDERED: ONDANSETRON HCL 4MG/2ML INJ IV ONE (04:45)
[2019-06-28 05:12] LABS: BG CARBOXYHEMOGLOBIN 0.4 % (0.5-1.5); BG DEOXYHEMOGLOBIN 1.4 % (0.0-5.0); BG FRACTION INSPIRED OXYGEN 44; BG HCO3 ACT 30.7 mmol/L (22.0-26.0); BG METHEMOGLOBIN 0.2 % (0.0-1.5); BG OXYGEN SATURATION 98.6 % (92.0-98.5); BG PCO2 52.8 mmHg (35.0-45.0); BG PH 7.383 (7.350-7.450); BG PO2 127.8 mmHg (75.0-100.0); BG SAMPLE SITE RIGHT RADIAL; BG TOTAL HEMOGLOBIN 18.7 g/dL (12.0-18.0); BG VENT MODE ON TX
[2019-06-28] MEDS ORDERED: SODIUM CHLORIDE 0.9% 1000ML BAG (SEPSIS BOLUS) IV ONE (09:30)
[2019-06-28] MEDS ORDERED: IPRATROPIUM/ALBUTEROL 0.5-3(2.5)MG/3ML NEB NEB PRN (09:30)
[2019-06-28] MEDS ORDERED: LORAZEPAM 0.5MG TABLET PO PRN (09:30)
[2019-06-28] MEDS ORDERED: MAGNESIUM/ALUMINUM HYDROXIDE/SIMETHICONE 30ML UDC PO PRN (09:30)
[2019-06-28] MEDS ORDERED: DIPHENHYDRAMINE 50MG/ML VIAL IV PRN (09:30)
[2019-06-28] MEDS ORDERED: ACETAMINOPHEN 325MG TABLET PO PRN (09:30)
[2019-06-28] MEDS ORDERED: FAMOTIDINE 20MG TABLET PO SCH (10:00)
[2019-06-28] MEDS ORDERED: CEFTRIAXONE 1 G PREMIX 50 ML IV SCH (10:00)
[2019-06-28] MEDS: IPRATROPIUM/ALBUTEROL 0.5-3(2.5)MG/3ML NEB HHN SCH ×4 (10:27→20:19)
[2019-06-28] MEDS ORDERED: AZITHROMYCIN 500 MG in DEXT 5% WATER 250 ML IV SCH (10:30)
[2019-06-28] MEDS: ONDANSETRON HCL 4MG/2ML INJ IV PRN ×2 (10:58→18:09)
[2019-06-28] MEDS ORDERED: ENOXAPARIN 40MG/0.4ML SYR SUBCUT SCH (11:00)
[2019-06-28] MEDS: MORPHINE SULFATE 2 MG/ML CPJ (NOT FOR IM USE) IV PRN ×3 (11:01→22:36)
[2019-06-28] MEDS: GUAIFENESIN/DM 600MG/30MG ER TAB 12HR PO SCH (12:16)
[2019-06-28] MEDS ORDERED: LIDOCAINE HCL 1% 20ML VIAL (Pyxis) INJ ONE (12:38)
[2019-06-28] MEDS: METHYLPREDNISOLONE SOD SUCC 125 MG/2 ML VIAL IV SCH (14:00)
[2019-06-28] MEDS: DOCUSATE SODIUM 100MG CAPSULE PO PRN (14:00)
[2019-06-28] MEDS ORDERED: TRAMADOL 50MG TABLET PO PRN (16:00)
[2019-06-28 16:15] LABS: CREATINE KINASE 129 IU/L (26-192)
[2019-06-28 16:17] LABS: CREATINE KINASE MB FRACTION 1.7 ng/mL (0.5-3.6)
[2019-06-28 20:29] LABS: BG BASE EXCESS 1.1 mmol/L (-2.0-2.0); BG CARBOXYHEMOGLOBIN 0.8 % (0.5-1.5); BG DEOXYHEMOGLOBIN 5.2 % (0.0-5.0); BG FRACTION INSPIRED OXYGEN 34; BG HCO3 ACT 26.2 mmol/L (22.0-26.0); BG METHEMOGLOBIN 0.1 % (0.0-1.5); BG OXYGEN SATURATION 94.8 % (92.0-98.5); BG OXYHEMOGLOBIN 93.9 % (94.0-97.0); BG PCO2 43.3 mmHg (35.0-45.0); BG PH 7.399 (7.350-7.450); BG PO2 71.8 mmHg (75.0-100.0); BG SAMPLE SITE RIGHT RADIAL; BG TOTAL HEMOGLOBIN 13.8 g/dL (12.0-18.0); BG VENT MODE NASAL CANNULA
[2019-06-28 23:00] VITALS: BP 136/96
[2019-06-28] MEDS ORDERED: FUROSEMIDE 20MG/2ML VIAL IVP NR (23:45)
[2019-06-29 00:04] LABS: CREATINE KINASE 102 IU/L (26-192)
[2019-06-29] MEDS: FAMOTIDINE 20MG TABLET PO SCH ×3 (00:30→20:14)
[2019-06-29] MEDS: CLONIDINE 0.1MG TABLET PO PRN ×2 (00:30→20:14)
[2019-06-29] MEDS: METHYLPREDNISOLONE SOD SUCC 125 MG/2 ML VIAL IV SCH ×4 (00:30→23:39)
[2019-06-29] MEDS: DOCUSATE SODIUM 100MG CAPSULE PO PRN (00:30)
[2019-06-29] MEDS: GUAIFENESIN/DM 600MG/30MG ER TAB 12HR PO SCH ×3 (00:30→23:00)
[2019-06-29] MEDS: GUAIFENESIN 200MG/10ML SUGAR FREE UDC PO PRN ×2 (00:31→09:39)
[2019-06-29] MEDS: ENOXAPARIN 40MG/0.4ML SYR SUBCUT SCH ×4 (00:31→20:17)
[2019-06-29] MEDS: IPRATROPIUM/ALBUTEROL 0.5-3(2.5)MG/3ML NEB HHN SCH ×7 (00:51→23:06)
[2019-06-29 01:29] LABS: *AMPHETAMINES SCREEN URINE NEGATIVE (NEGATIVE); *BARBITURATES SCREEN URINE NEGATIVE (NEGATIVE); *BENZODIAZEPINES SCREEN URINE NEGATIVE (NEGATIVE); *COCAINE SCREEN URINE NEGATIVE (NEGATIVE)
[2019-06-29 01:30] LABS: CANNABINOID URINE SCREEN NEGATIVE (NEGATIVE); METHADONE URINE SCREEN NEGATIVE (NEGATIVE); OPIATES URINE SCREEN PRESUMTIVE POSITIVE (NEGATIVE); PHENCYCLIDINE URINE SCREEN NEGATIVE (NEGATIVE)
[2019-06-29] MEDS: MORPHINE SULFATE 2 MG/ML CPJ (NOT FOR IM USE) IV PRN ×2 (02:38→20:11)
[2019-06-29] MEDS: ZOLPIDEM TARTRATE 5MG TABLET PO PRN ×2 (03:09→22:59)
[2019-06-29 04:00] VITALS: BP 106/81
[2019-06-29 06:14] LABS: HEMOGLOBIN. 12.4 g/dL (12.0-16.0); MEAN CORPUSCULAR HEMOGLOBIN 27.4 pg (28.0-32.0); MEAN CORPUSCULAR VOLUME 83.6 fL (81.0-99.0); MEAN PLATELET VOLUME 8.5 fl (7.4-10.4); PLATELET 195 x1000/uL (130-400); RED BLOOD CELL COUNT 4.54 mill/uL (4.2-5.4); RED CELL DISTRIBUTION WIDTH 17.2 % (11.6-14.6)
[2019-06-29 06:20] LABS: CHLORIDE 106 mEq/L (98-107)
[2019-06-29 06:30] LABS: LDL CHOLESTEROL 93 mg/dL (5-100); PHOSPHORUS 2.8 mg/dL (2.5-4.9)
[2019-06-29 06:31] LABS: HDL CHOLESTEROL 77 mg/dL (40-59)
[2019-06-29 08:00] VITALS: BP 117/76
[2019-06-29] MEDS: ZINC SULFATE 220 MG ( 50 ) CAPSULE PO SCH (09:39)
[2019-06-29] MEDS: ASCORBIC ACID 500 MG TABLET PO SCH ×2 (09:40→20:14)
[2019-06-29] MEDS: ASPIRIN 325MG EC TABLET PO SCH (09:41)
[2019-06-29] MEDS: CEFTRIAXONE 1 G PREMIX 50 ML IV SCH (10:12)
[2019-06-29] MEDS: AZITHROMYCIN 500 MG in DEXT 5% WATER 250 ML IV SCH ×2 (10:56→11:00)
[2019-06-29] MEDS: LIDOCAINE 5% PATCH TOP SCH (12:58)
[2019-06-29 13:45] LABS: PLATELET ESTIMATE NORMAL
[2019-06-29 16:00] VITALS: BP 126/89
[2019-06-29 20:00] VITALS: BP 142/95
[2019-06-30] VITALS (7 sets, daily range): BP systolic 100–152; BP diastolic 73–108
[2019-06-30] MEDS: MORPHINE SULFATE 2 MG/ML CPJ (NOT FOR IM USE) IV PRN ×4 (01:44→21:14)
[2019-06-30] MEDS: IPRATROPIUM/ALBUTEROL 0.5-3(2.5)MG/3ML NEB HHN SCH ×6 (02:09→20:10)
[2019-06-30] MEDS: METHYLPREDNISOLONE SOD SUCC 125 MG/2 ML VIAL IV SCH ×3 (05:02→21:04)
[2019-06-30] MEDS: ENOXAPARIN 40MG/0.4ML SYR SUBCUT SCH ×2 (09:00→21:00)
[2019-06-30] MEDS: FAMOTIDINE 20MG TABLET PO SCH ×2 (10:25→21:03)
[2019-06-30] MEDS: ASPIRIN 325MG EC TABLET PO SCH (10:26)
[2019-06-30] MEDS: ASCORBIC ACID 500 MG TABLET PO SCH ×2 (10:26→21:03)
[2019-06-30] MEDS: ZINC SULFATE 220 MG ( 50 ) CAPSULE PO SCH (10:26)
[2019-06-30] MEDS: CEFTRIAXONE 1 G PREMIX 50 ML IV SCH (10:35)
[2019-06-30] MEDS: GUAIFENESIN/DM 600MG/30MG ER TAB 12HR PO SCH ×2 (13:00→22:23)
[2019-06-30] MEDS: LIDOCAINE 5% PATCH TOP SCH (14:18)
[2019-06-30] MEDS ORDERED: MAGNESIUM HYDROXIDE 400MG/5ML 30ML UDC PO NR (16:38)
[2019-06-30] MEDS ORDERED: LACTULOSE 20G/30ML UDC PO PRN (16:45)
[2019-06-30] MEDS: POLYETHYLENE GLYCOL 3350 (17GM) 1 DOSE PACK PO SCH (17:12)
[2019-06-30] MEDS: DOCUSATE SODIUM 250MG CAPSULE PO SCH (17:12)
[2019-06-30] MEDS: DOCUSATE SODIUM 100MG CAPSULE PO PRN (19:45)
[2019-06-30] MEDS: CLONIDINE 0.1MG TABLET PO PRN (21:04)
[2019-06-30] MEDS: ZOLPIDEM TARTRATE 5MG TABLET PO PRN (22:22)
[2019-07-01] VITALS: BP 129/99
[2019-07-01] MEDS: IPRATROPIUM/ALBUTEROL 0.5-3(2.5)MG/3ML NEB HHN SCH ×6 (00:24→21:52)
[2019-07-01] MEDS: MORPHINE SULFATE 2 MG/ML CPJ (NOT FOR IM USE) IV PRN ×5 (01:22→23:01)
[2019-07-01 04:00] VITALS: BP 140/98
[2019-07-01] MEDS: METHYLPREDNISOLONE SOD SUCC 125 MG/2 ML VIAL IV SCH ×3 (05:02→22:10)
[2019-07-01] MEDS: CLONIDINE 0.1MG TABLET PO PRN (05:23)
[2019-07-01 08:50] VITALS: BP 132/95
[2019-07-01] MEDS: CEFTRIAXONE 1 G PREMIX 50 ML IV SCH (09:47)
[2019-07-01] MEDS: POLYETHYLENE GLYCOL 3350 (17GM) 1 DOSE PACK PO SCH (09:50)
[2019-07-01] MEDS: DOCUSATE SODIUM 250MG CAPSULE PO SCH (09:50)
[2019-07-01] MEDS: ZINC SULFATE 220 MG ( 50 ) CAPSULE PO SCH (09:50)
[2019-07-01] MEDS: ASCORBIC ACID 500 MG TABLET PO SCH ×2 (09:50→21:00)
[2019-07-01] MEDS: FAMOTIDINE 20MG TABLET PO SCH ×2 (09:50→22:09)
[2019-07-01] MEDS: ASPIRIN 325MG EC TABLET PO SCH (09:50)
[2019-07-01] MEDS: ENOXAPARIN 40MG/0.4ML SYR SUBCUT SCH (09:51)
[2019-07-01] MEDS: LIDOCAINE 5% PATCH TOP SCH (10:10)
[2019-07-01] MEDS: AZITHROMYCIN 500 MG in DEXT 5% WATER 250 ML IV SCH (10:20)
[2019-07-01] MEDS: GUAIFENESIN/DM 600MG/30MG ER TAB 12HR PO SCH ×2 (11:00→22:09)
[2019-07-01 11:28] VITALS: BP 116/80
[2019-07-01] MEDS: DILTIAZEM HCL 120MG CAPSULE CD 24HR PO SCH (13:54)
[2019-07-01 15:40] VITALS: BP 128/83
[2019-07-01 20:00] VITALS: BP 126/91
[2019-07-01] MEDS: ENOXAPARIN 30MG/0.3ML SYR SUBCUT SCH (22:10)
[2019-07-01] MEDS: ZOLPIDEM TARTRATE 5MG TABLET PO PRN (22:14)
[2019-07-02] VITALS: BP 137/100
[2019-07-02] MEDS: IPRATROPIUM/ALBUTEROL 0.5-3(2.5)MG/3ML NEB HHN SCH ×4 (00:31→12:52)
[2019-07-02 04:00] VITALS: BP 120/91
[2019-07-02] MEDS: MORPHINE SULFATE 2 MG/ML CPJ (NOT FOR IM USE) IV PRN ×2 (04:00→09:33)
[2019-07-02] MEDS: METHYLPREDNISOLONE SOD SUCC 125 MG/2 ML VIAL IV SCH (06:07)
[2019-07-02 07:55] VITALS: BP 123/83
[2019-07-02] MEDS: ZINC SULFATE 220 MG ( 50 ) CAPSULE PO SCH (08:49)
[2019-07-02] MEDS: ASCORBIC ACID 500 MG TABLET PO SCH (08:49)
[2019-07-02] MEDS: ASPIRIN 325MG EC TABLET PO SCH (08:49)
[2019-07-02] MEDS: DOCUSATE SODIUM 250MG CAPSULE PO SCH (08:49)
[2019-07-02] MEDS: CEFTRIAXONE 1 G PREMIX 50 ML IV SCH (08:50)
[2019-07-02] MEDS: FAMOTIDINE 20MG TABLET PO SCH (08:50)
[2019-07-02] MEDS: ENOXAPARIN 30MG/0.3ML SYR SUBCUT SCH (09:00)
[2019-07-02] MEDS: DILTIAZEM HCL 120MG CAPSULE CD 24HR PO SCH (09:03)
[2019-07-02] MEDS: LIDOCAINE 5% PATCH TOP SCH (09:04)
[2019-07-02] MEDS: POLYETHYLENE GLYCOL 3350 (17GM) 1 DOSE PACK PO SCH (09:16)
[2019-07-02] MEDS: GUAIFENESIN/DM 600MG/30MG ER TAB 12HR PO SCH (10:19)
[2019-07-02] MEDS: AZITHROMYCIN 500 MG in DEXT 5% WATER 250 ML IV SCH (10:19)
[2019-07-02 11:46] VITALS: BP 147/96
[2019-07-02 12:00] VITALS: BP 147/96
== END 2019-07-02 13:55 | disposition home health service (06) | DRG 871 ==
LOC: ER 03:02 → 6WST 05:28 → EDBEDREQ 05:30 → EDBEDREQTM 05:30 → SUPCPDRO 09:09 → ENRESERV 21:34
PROVIDERS: ADMIT Internal Medicine; ATTEND Internal Medicine
PROC: 5A09357 Assistance with Respiratory Ventilation, Less than 24 Consecutive Hours, Continuous Positive Airway Pressure (ICD-10-PCS; principal; 2019-06-28)
PROC: 05HY33Z Insertion of Infusion Device into Upper Vein, Percutaneous Approach (ICD-10-PCS; 2019-06-28)
PROC: B54MZZA Ultrasonography of Right Upper Extremity Veins, Guidance (ICD-10-PCS; 2019-06-28)
DX: A41.9 Sepsis, unspecified organism (principal); J18.9 Pneumonia, unspecified organism; J96.01 Acute respiratory failure with hypoxia; J44.0 Chronic obstructive pulmonary disease with (acute) lower respiratory infection; E44.0 Moderate protein-calorie malnutrition; Z68.42 Body mass index [BMI] 45.0-49.9, adult; J44.1 Chronic obstructive pulmonary disease with (acute) exacerbation; E66.01 Morbid (severe) obesity due to excess calories; E78.00 Pure hypercholesterolemia, unspecified; M17.0 Bilateral primary osteoarthritis of knee; M19.011 Primary osteoarthritis, right shoulder; M75.00 Adhesive capsulitis of unspecified shoulder; M19.012 Primary osteoarthritis, left shoulder; I10 Essential (primary) hypertension; Z87.891 Personal history of nicotine dependence; Z99.81 Dependence on supplemental oxygen; Z88.8 Allergy status to other drugs, medicaments and biological substances; Z91.040 Latex allergy status; Z79.899 Other long term (current) drug therapy; Z79.82 Long term (current) use of aspirin
CPT/HCPCS: 36415; 36600; 71045; 76937; 80053; 80061; 80305; 82375; 82550; 82553; 82805; 83036; 83605; 83735; 83880; 84100; 84145; 84484; 85025; 93005; 93306; 93970; 94640; 94660; 97116; 97162; 97530; 99285; C1725; J0456; J0696; J1650; J2270; J2405; J2930; J3490; J7030; J7040; J7060; J7611; J7620

== ENCOUNTER 2019-07-13 13:10 | Inpatient (IN) | payer MEDICARE, MEDICAID ==
[~2019-07-13] VITALS: Ht 170.2 cm; Wt 107.1 kg
[~2019-07-13 13:10] MED LIST changes: -DOCU250C14 MT; +DOCU250C14 PO; -LISI-604 MT; +LISI-604 PO; -POLY17PO3 MT; +POLY17PO3 PO
[2019-07-13] MEDS ORDERED: METHYLPREDNISOLONE SOD SUCC 125 MG/2 ML VIAL IV STA (14:04)
[2019-07-13] MEDS ORDERED: IPRATROPIUM BROMIDE (0.02%) 0.5MG/2.5ML NEB HHN STA (14:04)
[2019-07-13] MEDS ORDERED: ALBUTEROL (0.083%) 2.5MG/3ML NEB HHN STA (14:04)
[2019-07-13] MEDS ORDERED: LEVOFLOXACIN 750MG PREMIX 150 ML IV ONE (14:15)
[2019-07-13] MEDS ORDERED: MAGNESIUM 2 G PREMIX 50 ML IV ONE (14:15)
[2019-07-13 14:52] LABS: HEMATOCRIT. 41.4 % (36.0-48.0); HEMOGLOBIN. 13.6 g/dL (12.0-16.0); MEAN CORPUSCULAR HEMOGLOBIN 27.6 pg (28.0-32.0); MEAN CORPUSCULAR VOLUME 84.2 fL (81.0-99.0); MEAN PLATELET VOLUME 8.6 fl (7.4-10.4); PLATELET 167 x1000/uL (130-400); RED BLOOD CELL COUNT 4.92 mill/uL (4.2-5.4); RED CELL DISTRIBUTION WIDTH 17.5 % (11.6-14.6)
[2019-07-13 14:54] LABS: CHLORIDE 105 mEq/L (98-107)
[2019-07-13 16:13] LABS: PLATELET ESTIMATE NORMAL
[2019-07-13] MEDS ORDERED: HYDROCODONE/ACETAMINOPHEN 5/325MG TABLET PO ONE (16:45)
[2019-07-13] MEDS ORDERED: DILTIAZEM HCL 60MG TABLET PO NR (22:30)
[2019-07-13] MEDS ORDERED: ALBUTEROL (0.083%) 2.5MG/3ML NEB HHN PRN (22:30)
[2019-07-13] MEDS: HYDROCODONE/ACETAMINOPHEN 10/325MG TABLET PO PRN (22:43)
[2019-07-13] MEDS ORDERED: ONDANSETRON HCL 4MG/2ML INJ IV PRN (23:15)
[2019-07-13] MEDS ORDERED: CLONIDINE 0.1MG TABLET PO PRN (23:15)
[2019-07-13] MEDS ORDERED: ACETAMINOPHEN 650MG/20.3ML UDC GT PRN (23:15)
[2019-07-13] MEDS ORDERED: GUAIFENESIN 200MG/10ML SUGAR FREE UDC PO PRN (23:15)
[2019-07-13] MEDS ORDERED: NA PHOS,M-B/NA PHOS,DI-BA ENEMA 118ML PR PRN (23:15)
[2019-07-13] MEDS ORDERED: ACETAMINOPHEN 650MG SUPP PR PRN (23:15)
[2019-07-13] MEDS ORDERED: DIPHENHYDRAMINE 50MG/ML VIAL IV PRN (23:15)
[2019-07-13] MEDS ORDERED: MAGNESIUM/ALUMINUM HYDROXIDE/SIMETHICONE 30ML UDC PO PRN (23:15)
[2019-07-14] VITALS: BP 117/80
[2019-07-14] MEDS: ZOLPIDEM TARTRATE 5MG TABLET PO PRN ×2 (01:32→23:33)
[2019-07-14] MEDS: IPRATROPIUM/ALBUTEROL 0.5-3(2.5)MG/3ML NEB HHN PRN ×2 (02:06→22:55)
[2019-07-14] MEDS: HYDROCODONE/ACETAMINOPHEN 10/325MG TABLET PO PRN ×3 (03:04→15:52)
[2019-07-14 04:00] VITALS: BP 109/67
[2019-07-14] MEDS: SODIUM CHLORIDE 0.9% INJ 3ML FLUSH IVF SCH ×3 (05:02→21:16)
[2019-07-14] MEDS: METHYLPREDNISOLONE SOD SUCC 125 MG/2 ML VIAL IV SCH ×3 (05:05→17:56)
[2019-07-14 07:02] LABS: BASOPHILS % 0.1 % (0.0-2.0); EOSINOPHILS % 0.3 % (0.0-5.0); HEMATOCRIT. 41.9 % (36.0-48.0); HEMOGLOBIN. 13.4 g/dL (12.0-16.0); LYMPHOCYTES % 9.2 % (20.0-50.0); MEAN CORPUSCULAR HEMOGLOBIN 26.8 pg (28.0-32.0); MEAN CORPUSCULAR VOLUME 83.9 fL (81.0-99.0); MONOCYTES % 10.2 % (2.0-8.0); NEUTROPHILS % 80.2 % (40.0-76.0); PLATELET 176 x1000/uL (130-400); RED CELL DISTRIBUTION WIDTH 18.1 % (11.6-14.6)
[2019-07-14] MEDS: IPRATROPIUM/ALBUTEROL 0.5-3(2.5)MG/3ML NEB HHN SCH ×3 (07:40→20:59)
[2019-07-14 08:00] VITALS: BP 112/84
[2019-07-14] MEDS: DOCUSATE SODIUM 100MG CAPSULE PO PRN ×2 (10:57→17:56)
[2019-07-14 12:00] VITALS: BP 148/78
[2019-07-14 16:00] VITALS: BP 123/90
[2019-07-14 20:00] VITALS: BP 120/84
[2019-07-14] MEDS: MORPHINE SULFATE 2 MG/ML CPJ (NOT FOR IM USE) IV PRN (20:32)
[2019-07-14 22:06] LABS: BG BASE EXCESS -2.8 mmol/L (-2.0-2.0); BG CARBOXYHEMOGLOBIN 0.5 % (0.5-1.5); BG DEOXYHEMOGLOBIN 5.8 % (0.0-5.0); BG FRACTION INSPIRED OXYGEN 35; BG HCO3 ACT 21.4 mmol/L (22.0-26.0); BG METHEMOGLOBIN 0.2 % (0.0-1.5); BG OXYGEN SATURATION 94.2 % (92.0-98.5); BG OXYHEMOGLOBIN 93.5 % (94.0-97.0); BG PCO2 35.8 mmHg (35.0-45.0); BG PH 7.395 (7.350-7.450); BG PO2 68.2 mmHg (75.0-100.0); BG SAMPLE SITE LEFT RADIAL; BG TOTAL HEMOGLOBIN 14.3 g/dL (12.0-18.0); BG VENT MODE NASAL CANNULA
[2019-07-15] VITALS (9 sets, daily range): BP systolic 96–124; BP diastolic 29–90
[2019-07-15] MEDS: METHYLPREDNISOLONE SOD SUCC 125 MG/2 ML VIAL IV SCH ×3 (00:30→13:10)
[2019-07-15] MEDS: ACETYLCYSTEINE 100MG/ML 10% VIAL 4ML INH SCH ×4 (01:32→20:50)
[2019-07-15] MEDS: IPRATROPIUM/ALBUTEROL 0.5-3(2.5)MG/3ML NEB HHN PRN (01:32)
[2019-07-15] MEDS: MORPHINE SULFATE 2 MG/ML CPJ (NOT FOR IM USE) IV PRN ×4 (03:20→22:45)
[2019-07-15] MEDS ORDERED: IPRATROPIUM/ALBUTEROL 0.5-3(2.5)MG/3ML NEB HHN SCH (06:00)
[2019-07-15 06:12] LABS: *BARBITURATES SCREEN URINE NEGATIVE (NEGATIVE)
[2019-07-15 06:14] LABS: *AMPHETAMINES SCREEN URINE NEGATIVE (NEGATIVE); *BENZODIAZEPINES SCREEN URINE NEGATIVE (NEGATIVE); *COCAINE SCREEN URINE NEGATIVE (NEGATIVE); METHADONE URINE SCREEN NEGATIVE (NEGATIVE); OPIATES URINE SCREEN PRESUMTIVE POSITIVE (NEGATIVE); PHENCYCLIDINE URINE SCREEN NEGATIVE (NEGATIVE)
[2019-07-15 06:15] LABS: CANNABINOID URINE SCREEN NEGATIVE (NEGATIVE)
[2019-07-15] MEDS: SODIUM CHLORIDE 0.9% INJ 3ML FLUSH IVF SCH ×3 (06:43→21:00)
[2019-07-15] MEDS: LEVOFLOXACIN 750MG PREMIX 150 ML IV SCH (06:43)
[2019-07-15] MEDS: HYDROCODONE/ACETAMINOPHEN 10/325MG TABLET PO PRN (07:11)
[2019-07-15 08:59] LABS: BG CARBOXYHEMOGLOBIN 0.3 % (0.5-1.5); BG DEOXYHEMOGLOBIN 3.3 % (0.0-5.0); BG FRACTION INSPIRED OXYGEN 36; BG HCO3 ACT 23.8 mmol/L (22.0-26.0); BG METHEMOGLOBIN 0.3 % (0.0-1.5); BG OXYGEN SATURATION 96.7 % (92.0-98.5); BG OXYHEMOGLOBIN 96.1 % (94.0-97.0); BG PCO2 40.3 mmHg (35.0-45.0); BG PO2 87.3 mmHg (75.0-100.0); BG SAMPLE SITE RIGHT BRACHIAL; BG TOTAL HEMOGLOBIN 13.6 g/dL (12.0-18.0); BG VENT MODE NASAL CANNULA
[2019-07-15 10:25] LABS: CHLORIDE 103 mEq/L (98-107)
[2019-07-15 10:30] LABS: HEMATOCRIT. 42.2 % (36.0-48.0); HEMOGLOBIN. 13.1 g/dL (12.0-16.0); MEAN CORPUSCULAR HEMOGLOBIN 26.4 pg (28.0-32.0); MEAN PLATELET VOLUME 8.9 fl (7.4-10.4); RED BLOOD CELL COUNT 4.96 mill/uL (4.2-5.4)
[2019-07-15] MEDS ORDERED: LIDOCAINE HCL 1% 20ML VIAL (Pyxis) INJ ONE (11:22)
[2019-07-15] MEDS ORDERED: SODIUM BICARBONATE 4% (2.4MEQ) 5ML VIAL IV ONE (11:22)
[2019-07-15 11:36] LABS: PLATELET ESTIMATE NORMAL
[2019-07-15 11:39] LABS: PLATELET 113 x1000/uL (130-400)
[2019-07-15] MEDS: BUDESONIDE 0.5MG/2ML NEB HHN SCH (13:55)
[2019-07-15] MEDS: IPRATROPIUM/ALBUTEROL 0.5-3(2.5)MG/3ML NEB HHN SCH ×2 (15:09→20:50)
[2019-07-15] MEDS: METHYLPREDNISOLONE SOD SUCC 40 MG/ML VIAL IV SCH ×2 (16:42→23:48)
[2019-07-15] MEDS: FAMOTIDINE 20MG TABLET PO SCH (21:00)
[2019-07-15] MEDS: FLUTICASONE PROPIONATE 50MCG/SPRAY BOTTLE BOTHNSTRLS SCH (21:00)
[2019-07-15] MEDS: DOCUSATE SODIUM 100MG CAPSULE PO PRN (22:44)
[2019-07-15] MEDS: ZOLPIDEM TARTRATE 5MG TABLET PO PRN (23:45)
[2019-07-15] MEDS: SODIUM CHLORIDE 45ML SPRAY NS SCH (23:48)
[2019-07-16] VITALS (8 sets, daily range): BP systolic 114–135; BP diastolic 67–98
[2019-07-16] MEDS: BUDESONIDE 0.5MG/2ML NEB HHN SCH ×2 (01:11→07:52)
[2019-07-16] MEDS: IPRATROPIUM/ALBUTEROL 0.5-3(2.5)MG/3ML NEB HHN SCH ×3 (01:11→12:56)
[2019-07-16] MEDS: HYDROCODONE/ACETAMINOPHEN 10/325MG TABLET PO PRN ×2 (02:28→10:22)
[2019-07-16] MEDS: SODIUM CHLORIDE 45ML SPRAY NS SCH ×3 (03:57→11:54)
[2019-07-16] MEDS: SODIUM CHLORIDE 0.9% INJ 3ML FLUSH IVF SCH (05:13)
[2019-07-16] MEDS: ACETYLCYSTEINE 100MG/ML 10% VIAL 4ML INH SCH (06:00)
[2019-07-16] MEDS: MORPHINE SULFATE 2 MG/ML CPJ (NOT FOR IM USE) IV PRN (06:48)
[2019-07-16] MEDS: LEVOFLOXACIN 750MG PREMIX 150 ML IV SCH (08:00)
[2019-07-16] MEDS: FAMOTIDINE 20MG TABLET PO SCH (08:09)
[2019-07-16] MEDS: DOCUSATE SODIUM 100MG CAPSULE PO PRN (08:09)
[2019-07-16] MEDS: METHYLPREDNISOLONE SOD SUCC 40 MG/ML VIAL IV SCH (08:30)
[2019-07-16] MEDS: FLUTICASONE PROPIONATE 50MCG/SPRAY BOTTLE BOTHNSTRLS SCH (09:00)
[2019-07-16] MEDS ORDERED: GUAIFENESIN 600MG ER TABLET PO SCH (09:00)
[2019-07-16] MEDS ORDERED: P50 MT (11:01)
[2019-07-16] MEDS ORDERED: GUAI600T26 MT (11:01)
[2019-07-16 11:18] LABS: HEMATOCRIT. 41.8 % (36.0-48.0); HEMOGLOBIN. 13.4 g/dL (12.0-16.0); MEAN CORPUSCULAR HEMOGLOBIN 27.2 pg (28.0-32.0); MEAN CORPUSCULAR VOLUME 84.9 fL (81.0-99.0); MEAN PLATELET VOLUME 8.3 fl (7.4-10.4); PLATELET 197 x1000/uL (130-400); RED BLOOD CELL COUNT 4.93 mill/uL (4.2-5.4); RED CELL DISTRIBUTION WIDTH 17.7 % (11.6-14.6)
[2019-07-16 11:24] LABS: CHLORIDE 102 mEq/L (98-107)
[2019-07-16 14:24] LABS: PLATELET ESTIMATE NORMAL
== END 2019-07-16 15:10 | disposition home health service (06) | DRG 190 ==
LOC: ER 13:20 → 7WST 16:08 → ENRESERV 22:44 → 3WST 07-15 03:35
PROVIDERS: ADMIT Family Medicine; ATTEND Family Medicine
PROC: 02HV33Z Insertion of Infusion Device into Superior Vena Cava, Percutaneous Approach (ICD-10-PCS; principal; 2019-07-15)
PROC: B548ZZA Ultrasonography of Superior Vena Cava, Guidance (ICD-10-PCS; 2019-07-15)
PROC: B5181ZA Fluoroscopy of Superior Vena Cava using Low Osmolar Contrast, Guidance (ICD-10-PCS; 2019-07-15)
PROC: 5A09357 Assistance with Respiratory Ventilation, Less than 24 Consecutive Hours, Continuous Positive Airway Pressure (ICD-10-PCS; 2019-07-16)
DX: J44.1 Chronic obstructive pulmonary disease with (acute) exacerbation (principal); J96.00 Acute respiratory failure, unspecified whether with hypoxia or hypercapnia; J84.9 Interstitial pulmonary disease, unspecified; I10 Essential (primary) hypertension; M19.90 Unspecified osteoarthritis, unspecified site; K21.9 Gastro-esophageal reflux disease without esophagitis; E78.5 Hyperlipidemia, unspecified; J06.9 Acute upper respiratory infection, unspecified; D72.829 Elevated white blood cell count, unspecified; E66.9 Obesity, unspecified; R00.0 Tachycardia, unspecified; Z68.37 Body mass index [BMI] 37.0-37.9, adult; Z91.040 Latex allergy status; Z88.8 Allergy status to other drugs, medicaments and biological substances; Z99.81 Dependence on supplemental oxygen
CPT/HCPCS: 36415; 36573; 36600; 71045; 76937; 80048; 80053; 80061; 80305; 82375; 82805; 83880; 84484; 85025; 87804; 93005; 93970; 94640; 94660; 96365; 96366; 96368; 96375; 97162; 99285; C1725; C1769; C1893; J1956; J2270; J2920; J2930; J3475; J3490; J7608; J7611; J7620; J7626

== ENCOUNTER 2019-11-06 07:52 | Emergency (ER) | payer MEDICARE, MEDICAID ==
[~2019-11-06] VITALS: Ht 172.7 cm; Wt 100.0 kg
[~2019-11-06 07:52] MED LIST changes: +GUAI600T26 MT; -P20 MT; +P50 MT; -TIOT18CA3 INH
[2019-11-06] MEDS ORDERED: METHYLPREDNISOLONE SOD SUCC 125 MG/2 ML VIAL IV STA (08:04)
[2019-11-06] MEDS ORDERED: IPRATROPIUM BROMIDE (0.02%) 0.5MG/2.5ML NEB HHN STA (08:04)
[2019-11-06] MEDS ORDERED: ALBUTEROL (0.083%) 2.5MG/3ML NEB HHN STA (08:04)
[2019-11-06 08:26] LABS: BASOPHILS % 0.4 % (0.0-2.0); EOSINOPHILS % 0.2 % (0.0-5.0); HEMATOCRIT. 37.5 % (36.0-48.0); HEMOGLOBIN. 12.4 g/dL (12.0-16.0); LYMPHOCYTES % 14.3 % (20.0-50.0); MEAN CORPUSCULAR VOLUME 81.8 fL (81.0-99.0); MEAN PLATELET VOLUME 7.8 fl (7.4-10.4); MONOCYTES % 7.2 % (2.0-8.0); NEUTROPHILS % 77.9 % (40.0-76.0); PLATELET 209 x1000/uL (130-400); RED BLOOD CELL COUNT 4.58 mill/uL (4.2-5.4); RED CELL DISTRIBUTION WIDTH 17.4 % (11.6-14.6)
[2019-11-06 08:32] LABS: CHLORIDE 109 mEq/L (98-107)
[2019-11-06 10:28] VITALS: BP 118/72
== END 2019-11-06 10:38 | disposition home or self-care (01) ==
LOC: ER 07:52
DX: J44.1 Chronic obstructive pulmonary disease with (acute) exacerbation (principal); I10 Essential (primary) hypertension; Z88.8 Allergy status to other drugs, medicaments and biological substances; Z91.040 Latex allergy status; Z79.82 Long term (current) use of aspirin; Z79.899 Other long term (current) drug therapy
CPT/HCPCS: 36415; 71045; 80053; 83880; 84484; 85025; 93005; 94644; 99285; J2930

== ENCOUNTER 2019-11-22 16:43 | Inpatient (IN) | payer MEDICARE, MEDICAID ==
[~2019-11-22] VITALS: Ht 152.4 cm; Wt 103.4 kg
[2019-11-22] MEDS ORDERED: METHYLPREDNISOLONE SOD SUCC 125 MG/2 ML VIAL IV STA (16:58)
[2019-11-22] MEDS ORDERED: IPRATROPIUM BROMIDE (0.02%) 0.5MG/2.5ML NEB HHN STA (16:58)
[2019-11-22] MEDS ORDERED: ALBUTEROL (0.083%) 2.5MG/3ML NEB HHN STA (16:58)
[2019-11-22] MEDS ORDERED: ALBUTEROL (0.083%) 2.5MG/3ML NEB HHN ONE (17:15)
[2019-11-22 18:06] LABS: BASOPHILS % 0.3 % (0.0-2.0); EOSINOPHILS % 0.1 % (0.0-5.0); HEMATOCRIT. 38.4 % (36.0-48.0); HEMOGLOBIN. 12.7 g/dL (12.0-16.0); LYMPHOCYTES % 7.5 % (20.0-50.0); MEAN CORPUSCULAR VOLUME 81.9 fL (81.0-99.0); MEAN PLATELET VOLUME 8.2 fl (7.4-10.4); MONOCYTES % 6.5 % (2.0-8.0); NEUTROPHILS % 85.6 % (40.0-76.0); PLATELET 205 x1000/uL (130-400); RED BLOOD CELL COUNT 4.69 mill/uL (4.2-5.4); RED CELL DISTRIBUTION WIDTH 17.9 % (11.6-14.6)
[2019-11-22 18:09] LABS: CHLORIDE 108 mEq/L (98-107)
[2019-11-22] MEDS ORDERED: CLONIDINE 0.1MG TABLET PO PRN (19:30)
[2019-11-22] MEDS ORDERED: DOCUSATE SODIUM 100MG CAPSULE PO PRN (19:30)
[2019-11-22] MEDS ORDERED: ONDANSETRON HCL 4MG/2ML INJ IV PRN (19:30)
[2019-11-22] MEDS ORDERED: ACETAMINOPHEN 325MG TABLET PO PRN (19:30)
[2019-11-22] MEDS ORDERED: LEVOFLOXACIN 500MG PREMIX 100 ML IV SCH (20:00)
[2019-11-22] MEDS: HYDROCODONE/ACETAMINOPHEN 5/325MG TABLET PO PRN ×2 (22:01→22:12)
[2019-11-22] MEDS: IPRATROPIUM/ALBUTEROL 0.5-3(2.5)MG/3ML NEB HHN PRN (22:30)
[2019-11-22 23:00] VITALS: BP 153/86
[2019-11-23] VITALS (7 sets, daily range): BP systolic 115–156; BP diastolic 83–103
[2019-11-23] MEDS: ATORVASTATIN CALCIUM 20MG TABLET PO SCH ×2 (00:09→21:28)
[2019-11-23] MEDS: METHYLPREDNISOLONE SOD SUCC 40 MG/ML VIAL IV SCH ×4 (00:10→21:29)
[2019-11-23] MEDS: ENOXAPARIN 40MG/0.4ML SYR SUBCUT SCH ×2 (00:10→21:30)
[2019-11-23] MEDS: GUAIFENESIN 200MG/10ML SUGAR FREE UDC PO PRN (00:16)
[2019-11-23] MEDS: ZOLPIDEM TARTRATE 5MG TABLET PO PRN ×2 (00:16→23:19)
[2019-11-23] MEDS: IPRATROPIUM/ALBUTEROL 0.5-3(2.5)MG/3ML NEB HHN PRN (01:45)
[2019-11-23] MEDS: PANTOPRAZOLE 40MG DR TABLET PO SCH (06:01)
[2019-11-23 06:57] LABS: BASOPHILS % 0.2 % (0.0-2.0); HEMOGLOBIN. 13.3 g/dL (12.0-16.0); LYMPHOCYTES % 7.9 % (20.0-50.0); MEAN CORPUSCULAR HEMOGLOBIN 27.3 pg (28.0-32.0); MEAN CORPUSCULAR VOLUME 82.1 fL (81.0-99.0); MONOCYTES % 4.3 % (2.0-8.0); NEUTROPHILS % 87.6 % (40.0-76.0); RED BLOOD CELL COUNT 4.88 mill/uL (4.2-5.4); RED CELL DISTRIBUTION WIDTH 17.7 % (11.6-14.6)
[2019-11-23 07:49] LABS: CHLORIDE 106 mEq/L (98-107)
[2019-11-23] MEDS ORDERED: METHYLPREDNISOLONE SOD SUCC 40 MG/ML VIAL IV SCH (09:00)
[2019-11-23 09:23] LABS: MEAN PLATELET VOLUME 8.8 fl (7.4-10.4); PLATELET 177 x1000/uL (130-400)
[2019-11-23] MEDS: ASPIRIN 81MG TABLET PO SCH (09:29)
[2019-11-23] MEDS: LISINOPRIL 20MG TABLET PO SCH (09:29)
[2019-11-23] MEDS: IPRATROPIUM/ALBUTEROL 0.5-3(2.5)MG/3ML NEB HHN SCH ×2 (10:00→21:53)
[2019-11-23] MEDS: DOCUSATE SODIUM 250MG CAPSULE PO PRN (11:07)
[2019-11-23] MEDS: MORPHINE SULFATE 2 MG/ML CPJ (NOT FOR IM USE) IV PRN ×4 (11:08→23:20)
[2019-11-23] MEDS: HYDROCODONE/ACETAMINOPHEN 10/325MG TABLET PO PRN ×3 (12:17→21:44)
[2019-11-23] MEDS: GUAIFENESIN 600MG ER TABLET PO SCH (21:28)
[2019-11-23] MEDS: BUDESONIDE 0.5MG/2ML NEB HHN SCH (21:53)
[2019-11-23] MEDS ORDERED: IPRATROPIUM/ALBUTEROL 0.5-3(2.5)MG/3ML NEB HHN PRN (22:00)
[2019-11-23] MEDS: LEVOFLOXACIN 500MG PREMIX 100 ML IV SCH (22:02)
[2019-11-24] VITALS: BP 131/98
[2019-11-24] MEDS: IPRATROPIUM/ALBUTEROL 0.5-3(2.5)MG/3ML NEB HHN SCH ×6 (00:15→21:13)
[2019-11-24 04:00] VITALS: BP 132/89
[2019-11-24] MEDS: HYDROCODONE/ACETAMINOPHEN 10/325MG TABLET PO PRN ×3 (04:18→22:31)
[2019-11-24] MEDS: METHYLPREDNISOLONE SOD SUCC 40 MG/ML VIAL IV SCH ×3 (05:58→22:10)
[2019-11-24] MEDS: MORPHINE SULFATE 2 MG/ML CPJ (NOT FOR IM USE) IV PRN ×3 (05:59→20:07)
[2019-11-24 06:10] LABS: HEMATOCRIT. 39.3 % (36.0-48.0); HEMOGLOBIN. 12.9 g/dL (12.0-16.0); MEAN CORPUSCULAR HEMOGLOBIN 26.7 pg (28.0-32.0); MEAN CORPUSCULAR VOLUME 81.7 fL (81.0-99.0); MEAN PLATELET VOLUME 8.6 fl (7.4-10.4); PLATELET 217 x1000/uL (130-400); RED BLOOD CELL COUNT 4.81 mill/uL (4.2-5.4); RED CELL DISTRIBUTION WIDTH 17.9 % (11.6-14.6)
[2019-11-24 06:24] LABS: CHLORIDE 107 mEq/L (98-107)
[2019-11-24] MEDS: PANTOPRAZOLE 40MG DR TABLET PO SCH (06:27)
[2019-11-24 08:24] VITALS: BP 125/93
[2019-11-24] MEDS: LISINOPRIL 20MG TABLET PO SCH (09:17)
[2019-11-24] MEDS: GUAIFENESIN 600MG ER TABLET PO SCH ×2 (09:18→22:09)
[2019-11-24] MEDS: ASPIRIN 81MG TABLET PO SCH (09:18)
[2019-11-24] MEDS: BUDESONIDE 0.5MG/2ML NEB HHN SCH ×2 (09:43→21:48)
[2019-11-24 10:45] LABS: PLATELET ESTIMATE NORMAL
[2019-11-24 12:14] VITALS: BP 143/91
[2019-11-24 16:12] VITALS: BP 128/88
[2019-11-24] MEDS: DOCUSATE SODIUM 250MG CAPSULE PO PRN (17:11)
[2019-11-24 20:00] VITALS: BP 127/89
[2019-11-24] MEDS: ENOXAPARIN 30MG/0.3ML SYR SUBCUT SCH (22:09)
[2019-11-24] MEDS: ATORVASTATIN CALCIUM 20MG TABLET PO SCH ×2 (22:09→22:31)
[2019-11-24] MEDS: LEVOFLOXACIN 500MG PREMIX 100 ML IV SCH (22:10)
[2019-11-24] MEDS: ZOLPIDEM TARTRATE 5MG TABLET PO PRN (22:31)
[2019-11-25] VITALS: BP 121/91
[2019-11-25] MEDS: IPRATROPIUM/ALBUTEROL 0.5-3(2.5)MG/3ML NEB HHN SCH ×6 (00:59→20:57)
[2019-11-25] MEDS: MORPHINE SULFATE 2 MG/ML CPJ (NOT FOR IM USE) IV PRN ×3 (00:59→15:07)
[2019-11-25] MEDS: HYDROCODONE/ACETAMINOPHEN 10/325MG TABLET PO PRN ×2 (03:13→10:20)
[2019-11-25 05:50] VITALS: BP 96/56
[2019-11-25] MEDS: METHYLPREDNISOLONE SOD SUCC 40 MG/ML VIAL IV SCH ×4 (06:00→21:33)
[2019-11-25] MEDS: GUAIFENESIN 200MG/10ML SUGAR FREE UDC PO PRN (06:37)
[2019-11-25] MEDS: FAMOTIDINE 20MG TABLET PO SCH ×2 (06:37→17:15)
[2019-11-25] MEDS: BUDESONIDE 0.5MG/2ML NEB HHN SCH ×2 (08:33→20:55)
[2019-11-25 08:36] VITALS: BP 145/95
[2019-11-25] MEDS: ENOXAPARIN 30MG/0.3ML SYR SUBCUT SCH ×2 (09:44→21:33)
[2019-11-25] MEDS: LISINOPRIL 20MG TABLET PO SCH (09:50)
[2019-11-25] MEDS: ASPIRIN 81MG TABLET PO SCH (09:50)
[2019-11-25] MEDS: GUAIFENESIN 600MG ER TABLET PO SCH ×3 (10:02→21:55)
[2019-11-25] MEDS: DOCUSATE SODIUM 250MG CAPSULE PO PRN (10:02)
[2019-11-25] MEDS ORDERED: PREDNISONE 20MG TABLET PO SCH (10:30)
[2019-11-25] MEDS ORDERED: LEVOFLOXACIN 500MG TABLET PO SCH (11:00)
[2019-11-25] MEDS ORDERED: LIDOCAINE HCL 1% 20ML VIAL (Pyxis) INJ ONE (11:16)
[2019-11-25] MEDS ORDERED: SODIUM BICARBONATE 4% (2.4MEQ) 5ML VIAL IV ONE (11:16)
[2019-11-25 12:00] VITALS: BP 117/95
[2019-11-25] MEDS: POLYETHYLENE GLYCOL 3350 (17GM) 1 DOSE PACK PO SCH (13:20)
[2019-11-25 14:10] LABS: CHLORIDE 106 mEq/L (98-107)
[2019-11-25 16:00] VITALS: BP 121/94
[2019-11-25 18:50] LABS: HEMATOCRIT. 41.8 % (36.0-48.0); HEMOGLOBIN. 13.4 g/dL (12.0-16.0); MEAN CORPUSCULAR HEMOGLOBIN 26.6 pg (28.0-32.0); MEAN CORPUSCULAR VOLUME 82.7 fL (81.0-99.0); MEAN PLATELET VOLUME 9.2 fl (7.4-10.4); PLATELET 227 x1000/uL (130-400); RED BLOOD CELL COUNT 5.05 mill/uL (4.2-5.4)
[2019-11-25 19:07] LABS: PLATELET ESTIMATE NORMAL
[2019-11-25 20:23] VITALS: BP 122/91
[2019-11-25] MEDS ORDERED: LEVOFLOXACIN 500MG PREMIX 100 ML IV SCH (21:00)
[2019-11-25] MEDS: ATORVASTATIN CALCIUM 20MG TABLET PO SCH (21:32)
[2019-11-25] MEDS: ZOLPIDEM TARTRATE 5MG TABLET PO PRN (22:46)
[2019-11-26] MEDS: IPRATROPIUM/ALBUTEROL 0.5-3(2.5)MG/3ML NEB HHN SCH ×7 (00:28→14:26)
[2019-11-26 00:39] VITALS: BP 129/83
[2019-11-26] MEDS: MORPHINE SULFATE 2 MG/ML CPJ (NOT FOR IM USE) IV PRN ×3 (01:02→12:36)
[2019-11-26] MEDS: HYDROCODONE/ACETAMINOPHEN 10/325MG TABLET PO PRN ×3 (02:26→12:41)
[2019-11-26 04:00] VITALS: BP 125/81
[2019-11-26] MEDS: METHYLPREDNISOLONE SOD SUCC 40 MG/ML VIAL IV SCH (06:30)
[2019-11-26] MEDS: FAMOTIDINE 20MG TABLET PO SCH (06:30)
[2019-11-26 07:17] LABS: HEMATOCRIT. 39.6 % (36.0-48.0); MEAN CORPUSCULAR HEMOGLOBIN 26.9 pg (28.0-32.0); MEAN CORPUSCULAR VOLUME 81.7 fL (81.0-99.0); MEAN PLATELET VOLUME 8.7 fl (7.4-10.4); PLATELET 209 x1000/uL (130-400); RED BLOOD CELL COUNT 4.84 mill/uL (4.2-5.4); RED CELL DISTRIBUTION WIDTH 17.8 % (11.6-14.6)
[2019-11-26 07:18] LABS: CHLORIDE 103 mEq/L (98-107)
[2019-11-26 08:00] VITALS: BP 122/76
[2019-11-26] MEDS: BUDESONIDE 0.5MG/2ML NEB HHN SCH (08:16)
[2019-11-26] MEDS: POLYETHYLENE GLYCOL 3350 (17GM) 1 DOSE PACK PO SCH (08:52)
[2019-11-26] MEDS: LISINOPRIL 20MG TABLET PO SCH (08:52)
[2019-11-26] MEDS: ASPIRIN 81MG TABLET PO SCH (08:52)
[2019-11-26] MEDS: ENOXAPARIN 30MG/0.3ML SYR SUBCUT SCH (08:53)
[2019-11-26 12:00] VITALS: BP 119/84
[2019-11-26 12:01] VITALS: BP 121/65
[2019-11-26 12:41] VITALS: BP 121/65
[2019-11-26 14:54] LABS: PLATELET ESTIMATE NORMAL
[2019-11-26] MEDS ORDERED: METHYLPREDNISOLONE SOD SUCC 40 MG/ML VIAL IV SCH (17:00)
== END 2019-11-26 14:40 | disposition home or self-care (01) | DRG 189 ==
LOC: ER 16:43 → 6WST 19:20 → EDBEDREQ 19:22 → ENRESERV 21:48
PROVIDERS: ADMIT Internal Medicine Nephrology; ATTEND Internal Medicine Nephrology
PROC: 02HV33Z Insertion of Infusion Device into Superior Vena Cava, Percutaneous Approach (ICD-10-PCS; principal; 2019-11-25)
PROC: B518ZZA Fluoroscopy of Superior Vena Cava, Guidance (ICD-10-PCS; 2019-11-25)
PROC: B548ZZA Ultrasonography of Superior Vena Cava, Guidance (ICD-10-PCS; 2019-11-25)
DX: J96.00 Acute respiratory failure, unspecified whether with hypoxia or hypercapnia (principal); J44.1 Chronic obstructive pulmonary disease with (acute) exacerbation; I50.32 Chronic diastolic (congestive) heart failure; I11.0 Hypertensive heart disease with heart failure; M19.90 Unspecified osteoarthritis, unspecified site; K21.9 Gastro-esophageal reflux disease without esophagitis; D72.829 Elevated white blood cell count, unspecified; T38.0X5A Adverse effect of glucocorticoids and synthetic analogues, initial encounter; D72.810 Lymphocytopenia; Z88.8 Allergy status to other drugs, medicaments and biological substances; Z99.81 Dependence on supplemental oxygen; Z91.040 Latex allergy status; Z79.891 Long term (current) use of opiate analgesic; Z79.899 Other long term (current) drug therapy; Z79.82 Long term (current) use of aspirin; Y92.89 Other specified places as the place of occurrence of the external cause; Z79.51 Long term (current) use of inhaled steroids
CPT/HCPCS: 36415; 36573; 71045; 76937; 80048; 80053; 83880; 84484; 85025; 93005; 96365; 97110; 97162; 97166; 97535; 99285; C1725; J1650; J1956; J2270; J2920; J2930; J3490; J7626

== ENCOUNTER 2020-01-30 03:29 | Inpatient (IN) | payer MEDICARE, MEDICAID ==
[~2020-01-30] VITALS: Ht 165.1 cm; Wt 98.9 kg
[~2020-01-30 03:29] MED LIST changes: -ALBU17AE26 PO; -ALBU18HF2 IH; +AZIT500T8 MT; +DILT60TA35 PO; -DOCU250C14 PO; +FLUT1BLS INH; -GUAI600T26 MT; +IPRA3AMP9 HHN; +IPRA4AER INH; -LISI-604 PO; +MOM MT; -MOME13HF2 INH; -PHEN473S12 PO; -POLY17PO3 PO; +SENN-170 MT; +TUSSL MT; -ZOLP10TA2 PO
[2020-01-30 05:59] LABS: BASOPHILS % 0.4 % (0.0-2.0); EOSINOPHILS % 1.9 % (0.0-5.0); HEMATOCRIT. 39.8 % (36.0-48.0); HEMOGLOBIN. 12.9 g/dL (12.0-16.0); LYMPHOCYTES % 9.7 % (20.0-50.0); MEAN CORPUSCULAR HEMOGLOBIN 26.8 pg (28.0-32.0); MEAN CORPUSCULAR VOLUME 82.5 fL (81.0-99.0); MONOCYTES % 11.4 % (2.0-8.0); NEUTROPHILS % 76.6 % (40.0-76.0); PLATELET 146 x1000/uL (130-400); RED BLOOD CELL COUNT 4.83 mill/uL (4.2-5.4); RED CELL DISTRIBUTION WIDTH 18.2 % (11.6-14.6)
[2020-01-30 06:07] LABS: CHLORIDE 101 mEq/L (98-107)
[2020-01-30] MEDS ORDERED: METHYLPREDNISOLONE SOD SUCC 125 MG/2 ML VIAL IV STA (06:13)
[2020-01-30] MEDS ORDERED: ALBUTEROL (0.083%) 2.5MG/3ML NEB HHN STA (06:13)
[2020-01-30] MEDS ORDERED: IPRATROPIUM BROMIDE (0.02%) 0.5MG/2.5ML NEB HHN STA (06:13)
[2020-01-30] MEDS ORDERED: MAGNESIUM 2 G PREMIX 50 ML IV STA (06:17)
[2020-01-30] MEDS ORDERED: GUAIFENESIN 200MG/10ML SUGAR FREE UDC PO PRN (09:15)
[2020-01-30] MEDS ORDERED: MAGNESIUM/ALUMINUM HYDROXIDE/SIMETHICONE 30ML UDC PO PRN (09:15)
[2020-01-30] MEDS ORDERED: TRAMADOL 50MG TABLET PO PRN (09:15)
[2020-01-30] MEDS ORDERED: LORAZEPAM 0.5MG TABLET PO PRN (09:15)
[2020-01-30] MEDS ORDERED: ONDANSETRON HCL 4MG/2ML INJ IV PRN (09:15)
[2020-01-30] MEDS ORDERED: CLONIDINE 0.1MG TABLET PO PRN (09:15)
[2020-01-30] MEDS ORDERED: IPRATROPIUM/ALBUTEROL 0.5-3(2.5)MG/3ML NEB NEB PRN (09:15)
[2020-01-30] MEDS ORDERED: KETOROLAC 15MG/ML VIAL IV PRN (09:15)
[2020-01-30] MEDS ORDERED: ACETAMINOPHEN 325MG TABLET PO PRN ×2 (09:15)
[2020-01-30] MEDS ORDERED: NA PHOS,M-B/NA PHOS,DI-BA ENEMA 118ML PR PRN (09:15)
[2020-01-30] MEDS ORDERED: DOCUSATE SODIUM 100MG CAPSULE PO PRN (09:15)
[2020-01-30] MEDS: ASCORBIC ACID 500 MG TABLET PO SCH ×2 (09:30→21:06)
[2020-01-30] MEDS: ASPIRIN 81MG EC TABLET PO SCH (09:30)
[2020-01-30] MEDS: ZINC SULFATE 220 MG ( 50 ) CAPSULE PO SCH (09:30)
[2020-01-30] MEDS: GUAIFENESIN/DM 600MG/30MG ER TAB 12HR PO SCH ×2 (09:30→21:06)
[2020-01-30] MEDS: FAMOTIDINE 20MG TABLET PO SCH ×2 (09:30→21:06)
[2020-01-30] MEDS: PREGABALIN 50 MG CAPSULE PO SCH ×2 (10:00→21:00)
[2020-01-30] MEDS ORDERED: ENOXAPARIN 40MG/0.4ML SYR SUBCUT SCH (10:00)
[2020-01-30] MEDS ORDERED: LEVOFLOXACIN 500MG PREMIX 100 ML IV SCH (10:00)
[2020-01-30 10:03] LABS: *AMPHETAMINES SCREEN URINE NEGATIVE (NEGATIVE); *BARBITURATES SCREEN URINE NEGATIVE (NEGATIVE); *BENZODIAZEPINES SCREEN URINE NEGATIVE (NEGATIVE); *COCAINE SCREEN URINE NEGATIVE (NEGATIVE)
[2020-01-30 10:04] LABS: CANNABINOID URINE SCREEN NEGATIVE (NEGATIVE); METHADONE URINE SCREEN NEGATIVE (NEGATIVE); OPIATES URINE SCREEN PRESUMTIVE POSITIVE (NEGATIVE); PHENCYCLIDINE URINE SCREEN NEGATIVE (NEGATIVE)
[2020-01-30 11:30] VITALS: BP 123/77
[2020-01-30 12:12] VITALS: BP 127/70
[2020-01-30] MEDS: IPRATROPIUM/ALBUTEROL 0.5-3(2.5)MG/3ML NEB HHN SCH ×3 (12:30→20:00)
[2020-01-30] MEDS: METHYLPREDNISOLONE SOD SUCC 125 MG/2 ML VIAL IV SCH ×2 (13:45→22:28)
[2020-01-30] MEDS ORDERED: DEXTROSE 50% WATER 50ML SYRINGE IV PRN (13:45)
[2020-01-30] MEDS: ENOXAPARIN 30MG/0.3ML SYR SUBCUT SCH ×2 (14:33→21:06)
[2020-01-30] MEDS: LEVOFLOXACIN 500MG PREMIX 100 ML IV SCH (15:14)
[2020-01-30 16:00] VITALS: BP 111/59
[2020-01-30] MEDS: BLOOD SUGAR DIAGNOSTIC STRIP TEST SCH ×2 (16:34→20:51)
[2020-01-30 16:39] LABS: CREATINE KINASE 112 IU/L (26-192); CREATINE KINASE MB FRACTION 1.5 ng/mL (0.5-3.6)
[2020-01-30] MEDS: INSULIN LISPRO 100 UNITS/ML SUBCUT SCH ×4 (17:27→20:57)
[2020-01-30] MEDS: MORPHINE SULFATE 2 MG/ML CPJ (NOT FOR IM USE) IV PRN ×2 (17:29→22:44)
[2020-01-30 20:00] VITALS: BP 104/78
[2020-01-30] MEDS: ATORVASTATIN CALCIUM 20MG TABLET PO SCH (21:06)
[2020-01-30] MEDS: ZOLPIDEM TARTRATE 5MG TABLET PO PRN (23:30)
[2020-01-31] VITALS: BP 109/79
[2020-01-31] MEDS: IPRATROPIUM/ALBUTEROL 0.5-3(2.5)MG/3ML NEB HHN SCH ×6 (00:11→20:30)
[2020-01-31 00:16] LABS: CREATINE KINASE 130 IU/L (26-192)
[2020-01-31 00:17] LABS: CREATINE KINASE MB FRACTION 2.1 ng/mL (0.5-3.6)
[2020-01-31 04:00] VITALS: BP 116/79
[2020-01-31] MEDS: MORPHINE SULFATE 2 MG/ML CPJ (NOT FOR IM USE) IV PRN ×4 (04:12→22:08)
[2020-01-31] MEDS: METHYLPREDNISOLONE SOD SUCC 125 MG/2 ML VIAL IV SCH ×4 (05:07→23:39)
[2020-01-31] MEDS: BLOOD SUGAR DIAGNOSTIC STRIP TEST SCH ×4 (05:50→21:35)
[2020-01-31 08:02] VITALS: BP 106/78
[2020-01-31] MEDS: GUAIFENESIN/DM 600MG/30MG ER TAB 12HR PO SCH ×3 (08:31→20:41)
[2020-01-31] MEDS: ZINC SULFATE 220 MG ( 50 ) CAPSULE PO SCH (08:32)
[2020-01-31] MEDS: ASCORBIC ACID 500 MG TABLET PO SCH ×2 (08:32→20:28)
[2020-01-31] MEDS: FAMOTIDINE 20MG TABLET PO SCH ×2 (08:32→20:28)
[2020-01-31] MEDS: ASPIRIN 81MG EC TABLET PO SCH (08:32)
[2020-01-31] MEDS: ENOXAPARIN 30MG/0.3ML SYR SUBCUT SCH ×2 (08:33→20:28)
[2020-01-31] MEDS: PREGABALIN 50 MG CAPSULE PO SCH ×3 (08:33→20:41)
[2020-01-31] MEDS: HYDROCODONE/ACETAMINOPHEN 10/325MG TABLET PO PRN ×3 (09:44→23:55)
[2020-01-31] MEDS: LEVOFLOXACIN 500MG PREMIX 100 ML IV SCH (11:15)
[2020-01-31 12:00] VITALS: BP 107/75
[2020-01-31] MEDS: INSULIN LISPRO 100 UNITS/ML SUBCUT SCH ×3 (12:29→20:30)
[2020-01-31 15:41] VITALS: BP 124/72
[2020-01-31 20:00] VITALS: BP 123/87
[2020-01-31] MEDS: ATORVASTATIN CALCIUM 20MG TABLET PO SCH (20:26)
[2020-01-31] MEDS: ZOLPIDEM TARTRATE 5MG TABLET PO PRN (22:07)
[2020-02-01] VITALS: BP 120/77
[2020-02-01] MEDS: IPRATROPIUM/ALBUTEROL 0.5-3(2.5)MG/3ML NEB HHN SCH ×6 (00:15→21:16)
[2020-02-01] MEDS: MORPHINE SULFATE 2 MG/ML CPJ (NOT FOR IM USE) IV PRN ×2 (00:51→01:02)
[2020-02-01] MEDS: HYDROCODONE/ACETAMINOPHEN 10/325MG TABLET PO PRN ×4 (03:53→19:50)
[2020-02-01 04:00] VITALS: BP 101/70
[2020-02-01] MEDS: BLOOD SUGAR DIAGNOSTIC STRIP TEST SCH ×4 (07:10→21:00)
[2020-02-01 08:00] VITALS: BP 115/79
[2020-02-01] MEDS: INSULIN LISPRO 100 UNITS/ML SUBCUT SCH ×4 (08:30→21:00)
[2020-02-01] MEDS ORDERED: PREDNISONE 20MG TABLET PO NR (09:15)
[2020-02-01] MEDS: ZINC SULFATE 220 MG ( 50 ) CAPSULE PO SCH (09:57)
[2020-02-01] MEDS: ASPIRIN 81MG EC TABLET PO SCH (09:57)
[2020-02-01] MEDS: ENOXAPARIN 30MG/0.3ML SYR SUBCUT SCH ×3 (09:58→21:01)
[2020-02-01] MEDS: ASCORBIC ACID 500 MG TABLET PO SCH ×2 (10:05→20:51)
[2020-02-01] MEDS: FAMOTIDINE 20MG TABLET PO SCH ×2 (10:06→20:51)
[2020-02-01] MEDS: LEVOFLOXACIN 500MG TABLET PO SCH (13:35)
[2020-02-01 16:00] VITALS: BP 123/96
[2020-02-01 20:00] VITALS: BP 105/84
[2020-02-01] MEDS: PREGABALIN 50 MG CAPSULE PO SCH (20:51)
[2020-02-01] MEDS: ATORVASTATIN CALCIUM 20MG TABLET PO SCH (20:51)
[2020-02-01] MEDS: GUAIFENESIN/DM 600MG/30MG ER TAB 12HR PO SCH (20:58)
[2020-02-01] MEDS: ZOLPIDEM TARTRATE 5MG TABLET PO PRN (21:47)
[2020-02-02] VITALS: BP 116/79
[2020-02-02] MEDS: HYDROCODONE/ACETAMINOPHEN 10/325MG TABLET PO PRN ×3 (00:14→09:41)
[2020-02-02] MEDS: IPRATROPIUM/ALBUTEROL 0.5-3(2.5)MG/3ML NEB HHN SCH ×4 (01:01→12:12)
[2020-02-02 04:00] VITALS: BP 118/82
[2020-02-02] MEDS: INSULIN LISPRO 100 UNITS/ML SUBCUT SCH (07:35)
[2020-02-02] MEDS: BLOOD SUGAR DIAGNOSTIC STRIP TEST SCH (07:35)
[2020-02-02 08:00] VITALS: BP 104/72
[2020-02-02] MEDS: GUAIFENESIN/DM 600MG/30MG ER TAB 12HR PO SCH ×2 (09:00→09:25)
[2020-02-02] MEDS: PREGABALIN 50 MG CAPSULE PO SCH ×2 (09:00→09:25)
[2020-02-02] MEDS: ASCORBIC ACID 500 MG TABLET PO SCH (09:25)
[2020-02-02] MEDS: FAMOTIDINE 20MG TABLET PO SCH (09:25)
[2020-02-02] MEDS: ZINC SULFATE 220 MG ( 50 ) CAPSULE PO SCH (09:25)
[2020-02-02] MEDS: ASPIRIN 81MG EC TABLET PO SCH (09:25)
[2020-02-02] MEDS: LEVOFLOXACIN 500MG TABLET PO SCH (11:00)
[2020-02-02 11:43] VITALS: BP 104/72
== END 2020-02-02 13:00 | disposition home health service (06) | DRG 189 ==
LOC: ER 03:29 → 8WST 08:45 → SUPCPDRO 09:02 → ENRESERV 10:23
PROVIDERS: ADMIT Internal Medicine; ATTEND Internal Medicine
DX: J96.00 Acute respiratory failure, unspecified whether with hypoxia or hypercapnia (principal); J44.1 Chronic obstructive pulmonary disease with (acute) exacerbation; E44.0 Moderate protein-calorie malnutrition; I10 Essential (primary) hypertension; E78.00 Pure hypercholesterolemia, unspecified; E66.9 Obesity, unspecified; E11.9 Type 2 diabetes mellitus without complications; M19.90 Unspecified osteoarthritis, unspecified site; Z88.8 Allergy status to other drugs, medicaments and biological substances; Z91.040 Latex allergy status; Z79.891 Long term (current) use of opiate analgesic; Z79.899 Other long term (current) drug therapy; Z87.891 Personal history of nicotine dependence; Z68.36 Body mass index [BMI] 36.0-36.9, adult; G89.4 Chronic pain syndrome; Z76.5 Malingerer [conscious simulation]
CPT/HCPCS: 36415; 71045; 80053; 80061; 80305; 82550; 82553; 82962; 83036; 83880; 84484; 85025; 93005; 93970; 94640; 94644; 99285; J1650; J1815; J1956; J2270; J2930; J3475; J7512

== ENCOUNTER 2020-02-11 03:41 | Inpatient (IN) | payer MEDICARE, MEDICAID ==
[~2020-02-11] VITALS: Ht 162.6 cm; Wt 97.6 kg
[2020-02-11] MEDS ORDERED: METHYLPREDNISOLONE SOD SUCC 125 MG/2 ML VIAL IV STA (03:59)
[2020-02-11] MEDS ORDERED: ONDANSETRON HCL 4MG/2ML INJ IV STA (03:59)
[2020-02-11] MEDS ORDERED: IPRATROPIUM BROMIDE (0.02%) 0.5MG/2.5ML NEB HHN STA (03:59)
[2020-02-11] MEDS: ALBUTEROL (0.083%) 2.5MG/3ML NEB HHN SCH ×3 (04:30→05:30)
[2020-02-11 04:51] LABS: BG BASE EXCESS 0.6 mmol/L (-2.0-2.0); BG CARBOXYHEMOGLOBIN 0.6 % (0.5-1.5); BG DEOXYHEMOGLOBIN 0.6 % (0.0-5.0); BG FRACTION INSPIRED OXYGEN 90; BG HCO3 ACT 25.9 mmol/L (22.0-26.0); BG METHEMOGLOBIN 0.3 % (0.0-1.5); BG OXYGEN SATURATION 99.4 % (92.0-98.5); BG OXYHEMOGLOBIN 98.5 % (94.0-97.0); BG PCO2 44.1 mmHg (35.0-45.0); BG PH 7.387 (7.350-7.450); BG PO2 221.8 mmHg (75.0-100.0); BG SAMPLE SITE RIGHT RADIAL; BG TOTAL HEMOGLOBIN 12.7 g/dL (12.0-18.0); BG VENT MODE MASK - AEROSOL
[2020-02-11 05:17] LABS: HEMATOCRIT. 36.8 % (36.0-48.0); MEAN CORPUSCULAR HEMOGLOBIN 26.7 pg (28.0-32.0); MEAN CORPUSCULAR VOLUME 81.9 fL (81.0-99.0); MEAN PLATELET VOLUME 7.7 fl (7.4-10.4); PLATELET 260 x1000/uL (130-400); RED CELL DISTRIBUTION WIDTH 18.4 % (11.6-14.6)
[2020-02-11 05:24] LABS: CHLORIDE 109 mEq/L (98-107)
[2020-02-11] MEDS ORDERED: HYDROCODONE/ACETAMINOPHEN 5/325MG TABLET PO ONE (06:00)
[2020-02-11] MEDS ORDERED: CLONIDINE 0.1MG TABLET PO PRN (06:45)
[2020-02-11] MEDS ORDERED: DOCUSATE SODIUM 100MG CAPSULE PO PRN (06:45)
[2020-02-11] MEDS ORDERED: NITROGLYCERIN 0.4MG TABLET SL SL PRN (06:45)
[2020-02-11] MEDS ORDERED: IPRATROPIUM/ALBUTEROL 0.5-3(2.5)MG/3ML NEB ORI PRN (06:45)
[2020-02-11] MEDS ORDERED: ACETAMINOPHEN 325MG TABLET PO PRN (06:45)
[2020-02-11] MEDS ORDERED: LORAZEPAM 0.5MG TABLET PO PRN (06:45)
[2020-02-11] MEDS ORDERED: MAGNESIUM/ALUMINUM HYDROXIDE/SIMETHICONE 30ML UDC PO PRN (06:45)
[2020-02-11] MEDS ORDERED: IPRATROPIUM/ALBUTEROL 0.5-3(2.5)MG/3ML NEB HHN SCH (06:45)
[2020-02-11] MEDS ORDERED: GUAIFENESIN 200MG/10ML SUGAR FREE UDC PO PRN (06:45)
[2020-02-11] MEDS ORDERED: ONDANSETRON HCL 4MG/2ML INJ IV PRN (06:45)
[2020-02-11 07:02] LABS: PLATELET ESTIMATE NORMAL
[2020-02-11] MEDS ORDERED: LEVOFLOXACIN 500MG PREMIX 100 ML IV SCH (08:00)
[2020-02-11] MEDS: FAMOTIDINE 20MG TABLET PO SCH ×2 (10:34→21:50)
[2020-02-11] MEDS: ENOXAPARIN 40MG/0.4ML SYR SUBCUT SCH (10:34)
[2020-02-11] MEDS: ZINC SULFATE 220 MG ( 50 ) CAPSULE PO SCH (10:34)
[2020-02-11] MEDS: KETOROLAC 15MG/ML VIAL IV PRN (10:35)
[2020-02-11] MEDS: GUAIFENESIN/DM 600MG/30MG ER TAB 12HR PO SCH ×2 (10:35→21:50)
[2020-02-11] MEDS: ASPIRIN 325MG EC TABLET PO SCH (10:35)
[2020-02-11] MEDS: ASCORBIC ACID 500 MG TABLET PO SCH ×2 (10:35→21:50)
[2020-02-11 11:03] VITALS: BP 138/87
[2020-02-11 12:00] VITALS: BP 152/95
[2020-02-11] MEDS: ALBUTEROL 6.7GM HFA INHALER ORI PRN ×2 (12:08→22:22)
[2020-02-11] MEDS: DILTIAZEM HCL 60MG TABLET PO SCH ×2 (13:26→17:38)
[2020-02-11] MEDS: LEVOFLOXACIN 500MG PREMIX 100 ML IV SCH (13:26)
[2020-02-11] MEDS: METHYLPREDNISOLONE SOD SUCC 125 MG/2 ML VIAL IV SCH ×2 (13:28→21:51)
[2020-02-11] MEDS: HYDROCODONE/ACETAMINOPHEN 10/325MG TABLET PO PRN ×2 (14:54→19:54)
[2020-02-11 16:00] VITALS: BP 137/95
[2020-02-11 20:00] VITALS: BP 130/84
[2020-02-11] MEDS: ZOLPIDEM TARTRATE 5MG TABLET PO PRN (21:50)
[2020-02-12] VITALS: BP 129/82
[2020-02-12] MEDS: DILTIAZEM HCL 60MG TABLET PO SCH ×4 (01:14→17:46)
[2020-02-12] MEDS: KETOROLAC 15MG/ML VIAL IV PRN ×2 (01:18→09:07)
[2020-02-12 04:00] VITALS: BP 105/74
[2020-02-12] MEDS: HYDROCODONE/ACETAMINOPHEN 10/325MG TABLET PO PRN ×3 (04:42→17:47)
[2020-02-12] MEDS: ALBUTEROL 6.7GM HFA INHALER ORI PRN (06:00)
[2020-02-12] MEDS: METHYLPREDNISOLONE SOD SUCC 125 MG/2 ML VIAL IV SCH ×2 (06:07→12:45)
[2020-02-12 08:00] VITALS: BP 131/97
[2020-02-12] MEDS: FAMOTIDINE 20MG TABLET PO SCH ×2 (08:03→21:54)
[2020-02-12] MEDS: ASPIRIN 325MG EC TABLET PO SCH (08:03)
[2020-02-12] MEDS: GUAIFENESIN/DM 600MG/30MG ER TAB 12HR PO SCH ×2 (08:04→21:53)
[2020-02-12] MEDS: ASCORBIC ACID 500 MG TABLET PO SCH ×2 (08:04→21:54)
[2020-02-12] MEDS: ZINC SULFATE 220 MG ( 50 ) CAPSULE PO SCH (08:04)
[2020-02-12] MEDS: ENOXAPARIN 40MG/0.4ML SYR SUBCUT SCH (08:04)
[2020-02-12] MEDS: LEVOFLOXACIN 500MG PREMIX 100 ML IV SCH (10:47)
[2020-02-12 12:00] VITALS: BP 136/62
[2020-02-12] MEDS: IPRATROPIUM/ALBUTEROL 0.5-3(2.5)MG/3ML NEB HHN SCH ×2 (15:45→20:20)
[2020-02-12 20:00] VITALS: BP 140/94
[2020-02-12] MEDS: METHYLPREDNISOLONE SOD SUCC 40 MG/ML VIAL IV SCH (21:54)
[2020-02-12] MEDS: IPRATROPIUM/ALBUTEROL 0.5-3(2.5)MG/3ML NEB HHN PRN (22:13)
[2020-02-13] VITALS: BP 143/89
[2020-02-13] MEDS: DILTIAZEM HCL 60MG TABLET PO SCH ×5 (00:01→23:32)
[2020-02-13] MEDS: ZOLPIDEM TARTRATE 5MG TABLET PO PRN ×2 (00:01→22:45)
[2020-02-13] MEDS: HYDROCODONE/ACETAMINOPHEN 10/325MG TABLET PO PRN ×4 (00:02→19:36)
[2020-02-13] MEDS: IPRATROPIUM/ALBUTEROL 0.5-3(2.5)MG/3ML NEB HHN SCH ×6 (00:38→20:42)
[2020-02-13 04:00] VITALS: BP 119/83
[2020-02-13] MEDS: IPRATROPIUM/ALBUTEROL 0.5-3(2.5)MG/3ML NEB HHN PRN (04:25)
[2020-02-13] MEDS: METHYLPREDNISOLONE SOD SUCC 40 MG/ML VIAL IV SCH ×3 (06:34→22:45)
[2020-02-13 08:00] VITALS: BP 129/80
[2020-02-13] MEDS: ZINC SULFATE 220 MG ( 50 ) CAPSULE PO SCH (08:43)
[2020-02-13] MEDS: FAMOTIDINE 20MG TABLET PO SCH ×2 (08:43→22:45)
[2020-02-13] MEDS: ENOXAPARIN 40MG/0.4ML SYR SUBCUT SCH (08:43)
[2020-02-13] MEDS: ASPIRIN 325MG EC TABLET PO SCH (08:43)
[2020-02-13] MEDS: ASCORBIC ACID 500 MG TABLET PO SCH ×2 (08:43→22:45)
[2020-02-13] MEDS: GUAIFENESIN/DM 600MG/30MG ER TAB 12HR PO SCH ×2 (08:45→21:00)
[2020-02-13] MEDS: LEVOFLOXACIN 500MG PREMIX 100 ML IV SCH (12:47)
[2020-02-13] MEDS: THEOPHYLLINE ANHYDROUS 80 MG/15 ML 120ML PO SCH ×2 (13:21→22:00)
[2020-02-13 14:20] VITALS: BP 142/88
[2020-02-13 17:05] VITALS: BP 121/85
[2020-02-13] MEDS: ACETAMINOPHEN 325MG TABLET PO PRN (17:40)
[2020-02-13 20:00] VITALS: BP 119/78
[2020-02-14] VITALS: BP 98/79
[2020-02-14] MEDS: IPRATROPIUM/ALBUTEROL 0.5-3(2.5)MG/3ML NEB HHN SCH ×4 (01:20→15:30)
[2020-02-14] MEDS: HYDROCODONE/ACETAMINOPHEN 10/325MG TABLET PO PRN ×2 (01:33→08:51)
[2020-02-14 02:35] LABS: CLARITY URINE CLOUDY (CLEAR); COLOR URINE YELLOW (YELLOW); KETONES URINE NEGATIVE (NEGATIVE); LEUKOCYTE ESTERASE URINE TRACE (NEGATIVE); NITRITE URINE POSITIVE (NEGATIVE); OCCULT BLOOD URINE NEGATIVE (NEGATIVE); PROTEIN URINE NEGATIVE (NEGATIVE); SPECIFIC GRAVITY URINE 1.019 (1.005-1.030); UROBILINOGEN URINE 0.2 E.U./dL (0.2-1.0)
[2020-02-14 02:50] LABS: *AMPHETAMINES SCREEN URINE NEGATIVE (NEGATIVE); *BARBITURATES SCREEN URINE NEGATIVE (NEGATIVE); *BENZODIAZEPINES SCREEN URINE NEGATIVE (NEGATIVE); *COCAINE SCREEN URINE NEGATIVE (NEGATIVE); METHADONE URINE SCREEN NEGATIVE (NEGATIVE)
[2020-02-14 02:51] LABS: CANNABINOID URINE SCREEN NEGATIVE (NEGATIVE); OPIATES URINE SCREEN PRESUMTIVE POSITIVE (NEGATIVE); PHENCYCLIDINE URINE SCREEN NEGATIVE (NEGATIVE)
[2020-02-14 04:00] VITALS: BP 110/76
[2020-02-14] MEDS: THEOPHYLLINE ANHYDROUS 80 MG/15 ML 120ML PO SCH ×2 (06:00→13:56)
[2020-02-14] MEDS: METHYLPREDNISOLONE SOD SUCC 40 MG/ML VIAL IV SCH ×2 (06:57→13:41)
[2020-02-14] MEDS: DILTIAZEM HCL 60MG TABLET PO SCH ×2 (06:59→13:55)
[2020-02-14 08:45] VITALS: BP 108/89
[2020-02-14] MEDS: ASCORBIC ACID 500 MG TABLET PO SCH (08:48)
[2020-02-14] MEDS: ZINC SULFATE 220 MG ( 50 ) CAPSULE PO SCH (08:49)
[2020-02-14] MEDS: GUAIFENESIN/DM 600MG/30MG ER TAB 12HR PO SCH (08:49)
[2020-02-14] MEDS: FAMOTIDINE 20MG TABLET PO SCH (08:49)
[2020-02-14] MEDS: ASPIRIN 325MG EC TABLET PO SCH (08:49)
[2020-02-14] MEDS: ENOXAPARIN 40MG/0.4ML SYR SUBCUT SCH (08:49)
[2020-02-14] MEDS: LEVOFLOXACIN 500MG PREMIX 100 ML IV SCH (10:54)
[2020-02-14 11:17] VITALS: BP 108/89
[2020-02-14] MEDS: ACETAMINOPHEN 325MG TABLET PO PRN (13:42)
== END 2020-02-14 17:06 | disposition home or self-care (01) | DRG 871 ==
LOC: ER 03:41 → 7WST 05:32 → ENRESERV 07:43 → 6WST 02-12 14:30
PROVIDERS: ADMIT Internal Medicine; ATTEND Internal Medicine
DX: A41.9 Sepsis, unspecified organism (principal); J96.01 Acute respiratory failure with hypoxia; J44.1 Chronic obstructive pulmonary disease with (acute) exacerbation; E44.0 Moderate protein-calorie malnutrition; I50.32 Chronic diastolic (congestive) heart failure; Z20.828 Contact with and (suspected) exposure to other viral communicable diseases; G89.4 Chronic pain syndrome; E78.00 Pure hypercholesterolemia, unspecified; K21.9 Gastro-esophageal reflux disease without esophagitis; D72.829 Elevated white blood cell count, unspecified; D72.810 Lymphocytopenia; G47.33 Obstructive sleep apnea (adult) (pediatric); E66.01 Morbid (severe) obesity due to excess calories; M19.90 Unspecified osteoarthritis, unspecified site; B19.20 Unspecified viral hepatitis C without hepatic coma; I11.0 Hypertensive heart disease with heart failure; I27.21 Secondary pulmonary arterial hypertension; E11.9 Type 2 diabetes mellitus without complications; Z88.8 Allergy status to other drugs, medicaments and biological substances; Z91.040 Latex allergy status; Z68.36 Body mass index [BMI] 36.0-36.9, adult; Z99.81 Dependence on supplemental oxygen; Z87.891 Personal history of nicotine dependence; Z79.82 Long term (current) use of aspirin; Z79.899 Other long term (current) drug therapy; Z76.5 Malingerer [conscious simulation]
CPT/HCPCS: 36415; 36600; 71045; 80053; 80061; 80305; 81003; 82375; 82805; 83036; 83605; 83880; 84484; 85025; 87635; 93005; 93970; 94640; 99291; J1650; J1885; J1956; J2405; J2920; J2930

== ENCOUNTER 2020-04-05 09:15 | Inpatient (IN) | payer MEDICARE, MEDICAID ==
[~2020-04-05] VITALS: Ht 165.1 cm; Wt 99.8 kg
[2020-04-05 10:28] LABS: HEMATOCRIT. 39.3 % (36.0-48.0); HEMOGLOBIN. 12.5 g/dL (12.0-16.0); MEAN CORPUSCULAR HEMOGLOBIN 26.2 pg (28.0-32.0); MEAN CORPUSCULAR VOLUME 82.6 fL (81.0-99.0); MEAN PLATELET VOLUME 8.1 fl (7.4-10.4); PLATELET 259 x1000/uL (130-400); RED BLOOD CELL COUNT 4.75 mill/uL (4.2-5.4); RED CELL DISTRIBUTION WIDTH 19.8 % (11.6-14.6)
[2020-04-05] MEDS ORDERED: METHYLPREDNISOLONE SOD SUCC 125 MG/2 ML VIAL IV SCH (10:30)
[2020-04-05 10:43] LABS: CHLORIDE 105 mEq/L (98-107)
[2020-04-05] MEDS ORDERED: ONDANSETRON HCL 4MG/2ML INJ IV STA (10:45)
[2020-04-05] MEDS ORDERED: MORPHINE SULFATE 4 MG/ML CPJ (NOT FOR IM USE) IV STA (10:45)
[2020-04-05 10:55] LABS: PLATELET ESTIMATE NORMAL
[2020-04-05] MEDS ORDERED: IOHEXOL-350 100 ML BOTTLE ONE (14:13)
[2020-04-05] MEDS ORDERED: CLONIDINE 0.1MG TABLET PO PRN (17:45)
[2020-04-05] MEDS ORDERED: ACETAMINOPHEN 325MG TABLET PO PRN ×2 (17:45)
[2020-04-05] MEDS ORDERED: LORAZEPAM 0.5MG TABLET PO PRN (17:45)
[2020-04-05] MEDS ORDERED: ONDANSETRON HCL 4MG/2ML INJ IV PRN (17:45)
[2020-04-05] MEDS ORDERED: MAGNESIUM/ALUMINUM HYDROXIDE/SIMETHICONE 30ML UDC PO PRN (17:45)
[2020-04-05] MEDS ORDERED: DEXTROSE 50% WATER 50ML SYRINGE IV PRN (17:45)
[2020-04-05] MEDS ORDERED: MAGNESIUM HYDROXIDE 400MG/5ML 30ML UDC PO PRN (17:45)
[2020-04-05] MEDS ORDERED: DIPHENHYDRAMINE 50MG/ML VIAL IV PRN (17:45)
[2020-04-05] MEDS ORDERED: BENZONATATE 100MG CAPSULE PO PRN (17:45)
[2020-04-05] MEDS ORDERED: GUAIFENESIN 200MG/10ML SUGAR FREE UDC PO PRN (17:45)
[2020-04-05 18:09] LABS: BG BASE EXCESS 4.4 mmol/L (-2.0-2.0); BG CARBOXYHEMOGLOBIN 0.7 % (0.5-1.5); BG DEOXYHEMOGLOBIN 6.1 % (0.0-5.0); BG HCO3 ACT 29.5 mmol/L (22.0-26.0); BG METHEMOGLOBIN 0.1 % (0.0-1.5); BG OXYGEN SATURATION 93.9 % (92.0-98.5); BG OXYHEMOGLOBIN 93.1 % (94.0-97.0); BG PCO2 45.9 mmHg (35.0-45.0); BG PH 7.426 (7.350-7.450); BG PO2 67.7 mmHg (75.0-100.0); BG SAMPLE SITE RIGHT RADIAL; BG TOTAL HEMOGLOBIN 13.4 g/dL (12.0-18.0); BG VENT MODE NASAL CANNULA
[2020-04-05] MEDS: INSULIN LISPRO 100 UNITS/ML SUBCUT SCH ×2 (18:20→21:00)
[2020-04-05] MEDS: HYDROCODONE/ACETAMINOPHEN 10/325MG TABLET PO PRN (18:48)
[2020-04-05 21:00] VITALS: BP 114/83
[2020-04-05] MEDS: ALBUTEROL 6.7GM HFA INHALER ORI SCH (21:00)
[2020-04-05] MEDS ORDERED: ZOLPIDEM TARTRATE 5MG TABLET PO PRN ×2 (21:00→22:45)
[2020-04-05] MEDS: BLOOD SUGAR DIAGNOSTIC STRIP TEST SCH (21:00)
[2020-04-05] MEDS: FLUTICASONE PROPIONATE 50MCG/SPRAY BOTTLE BOTHNSTRLS SCH (22:01)
[2020-04-05] MEDS: THEOPHYLLINE ANHYDROUS 80 MG/15 ML 120ML PO SCH (22:05)
[2020-04-05] MEDS: FAMOTIDINE 20MG TABLET PO SCH (22:05)
[2020-04-05] MEDS: METHYLPREDNISOLONE SOD SUCC 125 MG/2 ML VIAL IV SCH (22:06)
[2020-04-05] MEDS: GUAIFENESIN 600MG ER TABLET PO SCH (22:06)
[2020-04-06] VITALS (8 sets, daily range): BP systolic 104–148; BP diastolic 77–99
[2020-04-06] MEDS: ALBUTEROL 6.7GM HFA INHALER ORI SCH ×5 (00:57→13:11)
[2020-04-06] MEDS: HYDROCODONE/ACETAMINOPHEN 10/325MG TABLET PO PRN ×4 (01:15→21:21)
[2020-04-06] MEDS ORDERED: LISI40TA4 PO (02:28)
[2020-04-06] MEDS ORDERED: ZOLP10TA2 PO (02:28)
[2020-04-06] MEDS: METHYLPREDNISOLONE SOD SUCC 125 MG/2 ML VIAL IV SCH ×2 (05:12→13:08)
[2020-04-06] MEDS: THEOPHYLLINE ANHYDROUS 80 MG/15 ML 120ML PO SCH ×3 (05:12→21:18)
[2020-04-06] MEDS: INSULIN LISPRO 100 UNITS/ML SUBCUT SCH ×4 (07:10→21:00)
[2020-04-06] MEDS: BLOOD SUGAR DIAGNOSTIC STRIP TEST SCH ×4 (07:16→21:09)
[2020-04-06] MEDS: GUAIFENESIN 600MG ER TABLET PO SCH ×4 (08:27→21:12)
[2020-04-06] MEDS: DOCUSATE SODIUM 100MG CAPSULE PO SCH ×2 (08:27→16:44)
[2020-04-06] MEDS: FLUTICASONE PROPIONATE 50MCG/SPRAY BOTTLE BOTHNSTRLS SCH ×2 (08:29→21:12)
[2020-04-06] MEDS ORDERED: PREDNISONE 20MG TABLET PO SCH (09:00)
[2020-04-06] MEDS ORDERED: LIDOCAINE HCL/PF 1% 2ML VIAL ONE (10:00)
[2020-04-06] MEDS ORDERED: INFLUENZA VACCINE 05/PF 0.5 ML VIAL IM ONE (10:00)
[2020-04-06 11:15] LABS: BG CARBOXYHEMOGLOBIN 0.5 % (0.5-1.5); BG DEOXYHEMOGLOBIN 1.9 % (0.0-5.0); BG FRACTION INSPIRED OXYGEN 34; BG METHEMOGLOBIN 0.2 % (0.0-1.5); BG OXYGEN SATURATION 98.1 % (92.0-98.5); BG OXYHEMOGLOBIN 97.4 % (94.0-97.0); BG PCO2 44.7 mmHg (35.0-45.0); BG PH 7.415 (7.350-7.450); BG SAMPLE SITE LEFT RADIAL; BG VENT MODE NASAL CANNULA
[2020-04-06] MEDS: ENOXAPARIN 40MG/0.4ML SYR SUBCUT SCH (13:10)
[2020-04-06] MEDS: SODIUM CHLORIDE 0.9% INJ 3ML FLUSH IVF SCH ×2 (13:12→21:12)
[2020-04-06] MEDS ORDERED: IPRATROPIUM/ALBUTEROL 0.5-3(2.5)MG/3ML NEB HHN PRN (17:15)
[2020-04-06] MEDS ORDERED: IPRATROPIUM/ALBUTEROL 0.5-3(2.5)MG/3ML NEB HHN SCH (18:00)
[2020-04-06] MEDS: IPRATROPIUM/ALBUTEROL 0.5-3(2.5)MG/3ML NEB HHN SCH ×2 (18:47→22:30)
[2020-04-06] MEDS: FAMOTIDINE 20MG TABLET PO SCH (21:12)
[2020-04-06] MEDS: ZOLPIDEM TARTRATE 5MG TABLET PO PRN (23:03)
[2020-04-07] VITALS: BP 127/81
[2020-04-07] MEDS: HYDROCODONE/ACETAMINOPHEN 10/325MG TABLET PO PRN ×3 (03:43→20:39)
[2020-04-07 04:00] VITALS: BP 118/87
[2020-04-07] MEDS: IPRATROPIUM/ALBUTEROL 0.5-3(2.5)MG/3ML NEB HHN SCH ×4 (04:16→19:59)
[2020-04-07] MEDS: THEOPHYLLINE ANHYDROUS 80 MG/15 ML 120ML PO SCH ×3 (05:06→21:04)
[2020-04-07] MEDS: SODIUM CHLORIDE 0.9% INJ 3ML FLUSH IVF SCH ×3 (05:06→21:04)
[2020-04-07] MEDS: INSULIN LISPRO 100 UNITS/ML SUBCUT SCH ×4 (06:46→20:33)
[2020-04-07] MEDS: BLOOD SUGAR DIAGNOSTIC STRIP TEST SCH ×4 (06:46→20:33)
[2020-04-07 08:00] VITALS: BP 123/82
[2020-04-07] MEDS: GUAIFENESIN 600MG ER TABLET PO SCH ×4 (09:00→20:43)
[2020-04-07] MEDS: DOCUSATE SODIUM 100MG CAPSULE PO SCH ×2 (10:02→16:50)
[2020-04-07] MEDS: PREDNISONE 20MG TABLET PO SCH ×3 (10:02→16:51)
[2020-04-07] MEDS: ENOXAPARIN 40MG/0.4ML SYR SUBCUT SCH (10:03)
[2020-04-07] MEDS: FLUTICASONE PROPIONATE 50MCG/SPRAY BOTTLE BOTHNSTRLS SCH ×2 (10:04→20:39)
[2020-04-07] MEDS: IPRATROPIUM/ALBUTEROL 0.5-3(2.5)MG/3ML NEB HHN PRN (11:56)
[2020-04-07 12:00] VITALS: BP 123/85
[2020-04-07 16:00] VITALS: BP 107/76
[2020-04-07 20:00] VITALS: BP 137/91
[2020-04-07] MEDS: FAMOTIDINE 20MG TABLET PO SCH (20:38)
[2020-04-07] MEDS: ZOLPIDEM TARTRATE 5MG TABLET PO PRN (21:49)
[2020-04-08] VITALS: BP 122/82
[2020-04-08] MEDS: IPRATROPIUM/ALBUTEROL 0.5-3(2.5)MG/3ML NEB HHN SCH ×5 (00:08→21:31)
[2020-04-08] MEDS: HYDROCODONE/ACETAMINOPHEN 10/325MG TABLET PO PRN ×3 (02:45→17:30)
[2020-04-08 03:58] VITALS: BP 117/94
[2020-04-08] MEDS: THEOPHYLLINE ANHYDROUS 80 MG/15 ML 120ML PO SCH ×3 (06:00→22:00)
[2020-04-08] MEDS: SODIUM CHLORIDE 0.9% INJ 3ML FLUSH IVF SCH ×3 (06:12→22:45)
[2020-04-08] MEDS: BLOOD SUGAR DIAGNOSTIC STRIP TEST SCH ×4 (06:36→20:28)
[2020-04-08] MEDS: INSULIN LISPRO 100 UNITS/ML SUBCUT SCH ×4 (06:36→20:28)
[2020-04-08 08:00] VITALS: BP 124/89
[2020-04-08] MEDS: DOCUSATE SODIUM 100MG CAPSULE PO SCH ×2 (08:40→08:43)
[2020-04-08] MEDS: PREDNISONE 20MG TABLET PO SCH ×2 (08:40→17:00)
[2020-04-08] MEDS: GUAIFENESIN 600MG ER TABLET PO SCH ×2 (08:40→08:43)
[2020-04-08] MEDS: ENOXAPARIN 30MG/0.3ML SYR SUBCUT SCH ×2 (08:40→08:43)
[2020-04-08] MEDS: FLUTICASONE PROPIONATE 50MCG/SPRAY BOTTLE BOTHNSTRLS SCH ×2 (08:43→20:32)
[2020-04-08 12:00] VITALS: BP 122/89
[2020-04-08] MEDS: IPRATROPIUM/ALBUTEROL 0.5-3(2.5)MG/3ML NEB HHN PRN (12:40)
[2020-04-08 16:00] VITALS: BP 125/95
[2020-04-08 20:00] VITALS: BP 112/91
[2020-04-08] MEDS: FAMOTIDINE 20MG TABLET PO SCH (20:32)
[2020-04-08] MEDS: METHYLPREDNISOLONE SOD SUCC 40 MG/ML VIAL IV SCH (20:32)
[2020-04-08] MEDS: ZOLPIDEM TARTRATE 5MG TABLET PO PRN (22:45)
[2020-04-09] VITALS: BP 140/95
[2020-04-09] MEDS: HYDROCODONE/ACETAMINOPHEN 10/325MG TABLET PO PRN ×3 (00:01→14:02)
[2020-04-09] MEDS: IPRATROPIUM/ALBUTEROL 0.5-3(2.5)MG/3ML NEB HHN SCH ×2 (01:12→17:10)
[2020-04-09 04:00] VITALS: BP 114/76
[2020-04-09] MEDS: SODIUM CHLORIDE 0.9% INJ 3ML FLUSH IVF SCH ×2 (05:59→14:00)
[2020-04-09] MEDS: THEOPHYLLINE ANHYDROUS 80 MG/15 ML 120ML PO SCH ×2 (05:59→14:00)
[2020-04-09] MEDS: INSULIN LISPRO 100 UNITS/ML SUBCUT SCH ×3 (06:33→17:04)
[2020-04-09] MEDS: BLOOD SUGAR DIAGNOSTIC STRIP TEST SCH ×3 (06:33→16:45)
[2020-04-09 08:00] VITALS: BP 114/85
[2020-04-09] MEDS: METHYLPREDNISOLONE SOD SUCC 40 MG/ML VIAL IV SCH ×2 (08:40→17:00)
[2020-04-09] MEDS: GUAIFENESIN 600MG ER TABLET PO SCH (09:00)
[2020-04-09] MEDS: DOCUSATE SODIUM 100MG CAPSULE PO SCH ×2 (09:00→17:00)
[2020-04-09] MEDS: ENOXAPARIN 30MG/0.3ML SYR SUBCUT SCH (09:00)
[2020-04-09] MEDS: IPRATROPIUM/ALBUTEROL 0.5-3(2.5)MG/3ML NEB HHN PRN ×2 (09:20→13:15)
[2020-04-09 12:00] VITALS: BP 122/79
[2020-04-09 16:00] VITALS: BP 121/87
[2020-04-09 17:08] VITALS: BP 121/89
== END 2020-04-09 17:55 | disposition home or self-care (01) | DRG 189 ==
LOC: ER 09:26 → 7EST 11:13 → EDBEDREQ 11:13 → ENRESERV 19:33 → 5WST 04-06 18:23
PROVIDERS: ADMIT Internal Medicine; ATTEND Internal Medicine
DX: J96.21 Acute and chronic respiratory failure with hypoxia (principal); R65.11 Systemic inflammatory response syndrome (SIRS) of non-infectious origin with acute organ dysfunction; J44.1 Chronic obstructive pulmonary disease with (acute) exacerbation; E66.01 Morbid (severe) obesity due to excess calories; E11.9 Type 2 diabetes mellitus without complications; J31.0 Chronic rhinitis; M19.011 Primary osteoarthritis, right shoulder; M19.012 Primary osteoarthritis, left shoulder; I27.21 Secondary pulmonary arterial hypertension; N28.1 Cyst of kidney, acquired; I50.9 Heart failure, unspecified; E78.5 Hyperlipidemia, unspecified; F41.1 Generalized anxiety disorder; I11.0 Hypertensive heart disease with heart failure; M40.204 Unspecified kyphosis, thoracic region; Z20.828 Contact with and (suspected) exposure to other viral communicable diseases; Z88.8 Allergy status to other drugs, medicaments and biological substances; Z68.36 Body mass index [BMI] 36.0-36.9, adult; Z91.040 Latex allergy status; Z79.899 Other long term (current) drug therapy; Z79.82 Long term (current) use of aspirin; Z79.891 Long term (current) use of opiate analgesic; Z99.81 Dependence on supplemental oxygen
CPT/HCPCS: 36415; 36600; 71045; 71275; 80053; 82375; 82805; 82962; 83880; 84484; 85025; 85379; 87635; 90686; 93005; 94640; 96374; 99291; J1200; J1650; J1815; J2270; J2405; J2920; J2930; J3490; J7512; Q9967

== ENCOUNTER 2020-05-28 13:30 | Emergency (ER) | payer MEDICARE, MEDICAID ==
[~2020-05-28] VITALS: Ht 162.6 cm; Wt 91.0 kg
[~2020-05-28 13:30] MED LIST changes: +LISI40TA4 PO; +ZOLP10TA2 PO
[2020-05-28] MEDS ORDERED: PREDNISONE 20MG TABLET PO STA (14:49)
[2020-05-28] MEDS ORDERED: ALBUTEROL 6.7GM HFA INHALER ORI ONE (15:00)
[2020-05-28] MEDS ORDERED: ALBUTEROL (0.083%) 2.5MG/3ML NEB ONE (15:05)
[2020-05-28] MEDS ORDERED: ALBUTEROL (0.083%) 2.5MG/3ML NEB HHN ONE (16:15)
[2020-05-28] MEDS ORDERED: AZITHROMYCIN 500 MG TABLET PO ONE (16:15)
[2020-05-28 17:00] VITALS: BP 138/82
== END 2020-05-28 18:55 | disposition home or self-care (01) ==
LOC: ER 13:30
DX: J44.1 Chronic obstructive pulmonary disease with (acute) exacerbation (principal); I11.0 Hypertensive heart disease with heart failure; I50.9 Heart failure, unspecified; Z99.81 Dependence on supplemental oxygen; Z79.82 Long term (current) use of aspirin; Z91.040 Latex allergy status; Z88.8 Allergy status to other drugs, medicaments and biological substances
CPT/HCPCS: 93005; 94640; 99283; J7512

== ENCOUNTER 2020-07-24 17:02 | Inpatient (IN) | payer MEDICARE, MEDICAID ==
[~2020-07-24] VITALS: Ht 170.2 cm; Wt 106.6 kg
[2020-07-24] MEDS: IPRATROPIUM BROMIDE (0.02%) 0.5MG/2.5ML NEB HHN SCH (00:50)
[~2020-07-24 17:02] MED LIST changes: +LISI40TA13 PO; -LISI40TA4 PO; -SENN-170 MT; +SENN-257 MT
[2020-07-24] MEDS ORDERED: IPRATROPIUM BROMIDE (0.02%) 0.5MG/2.5ML NEB HHN STA (17:14)
[2020-07-24] MEDS ORDERED: METHYLPREDNISOLONE SOD SUCC 125 MG/2 ML VIAL IV STA (17:14)
[2020-07-24] MEDS ORDERED: MAGNESIUM 2 G PREMIX 50 ML IV ONE (17:15)
[2020-07-24] MEDS ORDERED: FUROSEMIDE 40MG/4ML VIAL IV ONE (17:15)
[2020-07-24] MEDS ORDERED: ASPIRIN 81MG TABLET PO ONE (17:15)
[2020-07-24] MEDS: ALBUTEROL (0.083%) 2.5MG/3ML NEB HHN SCH ×3 (17:20→18:20)
[2020-07-24 18:21] LABS: CHLORIDE 100 mEq/L (98-107)
[2020-07-24 18:23] LABS: HEMATOCRIT. 38.9 % (36.0-48.0); HEMOGLOBIN. 12.3 g/dL (12.0-16.0); MEAN CORPUSCULAR HEMOGLOBIN 25.1 pg (28.0-32.0); MEAN CORPUSCULAR VOLUME 79.3 fL (81.0-99.0); MEAN PLATELET VOLUME 8.5 fl (7.4-10.4); PLATELET 256 x1000/uL (130-400); RED BLOOD CELL COUNT 4.91 mill/uL (4.2-5.4); RED CELL DISTRIBUTION WIDTH 18.6 % (11.6-14.6)
[2020-07-24] MEDS ORDERED: KETOROLAC 15MG/ML VIAL IV NR (18:45)
[2020-07-24] MEDS ORDERED: MORPHINE SULFATE 2 MG/ML CPJ (NOT FOR IM USE) IV ONE (19:15)
[2020-07-24] MEDS ORDERED: DOXYCYCLINE HYCLATE 100 MG/VIAL IV ONE (19:15)
[2020-07-24] MEDS ORDERED: ALBUTEROL (0.083%) 2.5MG/3ML NEB HHN ONE (19:15)
[2020-07-24 19:30] LABS: PLATELET ESTIMATE NORMAL
[2020-07-24] MEDS ORDERED: DOXYCYCLINE 100MG in DEXTROSE 5% WATER 100ML IV NR (19:30)
[2020-07-24] MEDS ORDERED: ONDANSETRON HCL 4MG/2ML INJ IV PRN (23:15)
[2020-07-25] MEDS: ACETAMINOPHEN 325MG TABLET PO PRN (00:02)
[2020-07-25] MEDS: IPRATROPIUM BROMIDE (0.02%) 0.5MG/2.5ML NEB HHN SCH ×5 (00:50→22:08)
[2020-07-25] MEDS: METHYLPREDNISOLONE SOD SUCC 40 MG/ML VIAL IV SCH ×3 (04:30→18:24)
[2020-07-25 09:30] VITALS: BP 116/79
[2020-07-25 10:00] VITALS: BP 120/68
[2020-07-25 12:00] VITALS: BP 146/97
[2020-07-25] MEDS ORDERED: HYDROCODONE/ACETAMINOPHEN 5/325MG TABLET PO PRN (13:15)
[2020-07-25] MEDS: FAMOTIDINE 20MG TABLET PO SCH ×2 (13:29→20:45)
[2020-07-25 15:27] VITALS: BP 148/78
[2020-07-25 16:00] VITALS: BP 139/58
[2020-07-25] MEDS: ENOXAPARIN 40MG/0.4ML SYR SUBCUT SCH (16:02)
[2020-07-25 20:00] VITALS: BP_SYST 116; BP_SYST 16; BP_DIAS 80
[2020-07-25] MEDS: HYDROCODONE/ACETAMINOPHEN 5/325MG TABLET PO PRN (20:07)
[2020-07-25] MEDS: GUAIFENESIN 600MG ER TABLET PO SCH (20:46)
[2020-07-25] MEDS ORDERED: ZOLPIDEM TARTRATE 5MG TABLET PO PRN (21:00)
[2020-07-25] MEDS: ZOLPIDEM TARTRATE 5MG TABLET PO PRN (22:56)
[2020-07-26] VITALS: BP 116/68
[2020-07-26] MEDS: METHYLPREDNISOLONE SOD SUCC 40 MG/ML VIAL IV SCH ×3 (02:00→18:37)
[2020-07-26] MEDS: HYDROCODONE/ACETAMINOPHEN 5/325MG TABLET PO PRN ×3 (03:56→13:08)
[2020-07-26 04:00] VITALS: BP 119/83
[2020-07-26] MEDS: IPRATROPIUM BROMIDE (0.02%) 0.5MG/2.5ML NEB HHN SCH ×5 (04:25→20:47)
[2020-07-26 08:00] VITALS: BP 123/59
[2020-07-26] MEDS: ENOXAPARIN 40MG/0.4ML SYR SUBCUT SCH (08:38)
[2020-07-26] MEDS: FAMOTIDINE 20MG TABLET PO SCH ×2 (08:38→20:59)
[2020-07-26] MEDS: GUAIFENESIN 600MG ER TABLET PO SCH ×2 (08:39→20:53)
[2020-07-26 12:00] VITALS: BP 123/83
[2020-07-26] MEDS: LEVOFLOXACIN 500MG TABLET PO SCH (12:43)
[2020-07-26] MEDS ORDERED: FUROSEMIDE 40MG/4ML VIAL IVP SCH (13:00)
[2020-07-26 16:00] VITALS: BP 134/88
[2020-07-26] MEDS: HYDROCODONE/ACETAMINOPHEN 10/325MG TABLET PO PRN (18:38)
[2020-07-26 19:02] LABS: CHLORIDE 100 mEq/L (98-107)
[2020-07-26 20:00] VITALS: BP 113/81
[2020-07-26] MEDS: ASPIRIN 81MG TABLET PO SCH (20:59)
[2020-07-26] MEDS: ACETAMINOPHEN 325MG TABLET PO PRN (21:00)
[2020-07-26] MEDS: ZOLPIDEM TARTRATE 5MG TABLET PO PRN (22:34)
[2020-07-26 23:47] LABS: HEMATOCRIT. 40.9 % (36.0-48.0); HEMOGLOBIN. 12.8 g/dL (12.0-16.0); MEAN CORPUSCULAR HEMOGLOBIN 24.9 pg (28.0-32.0); MEAN CORPUSCULAR VOLUME 79.4 fL (81.0-99.0); MEAN PLATELET VOLUME 8.4 fl (7.4-10.4); PLATELET 209 x1000/uL (130-400); RED BLOOD CELL COUNT 5.15 mill/uL (4.2-5.4); RED CELL DISTRIBUTION WIDTH 18.6 % (11.6-14.6)
[2020-07-27] MEDS: IPRATROPIUM BROMIDE (0.02%) 0.5MG/2.5ML NEB HHN SCH ×5 (00:07→20:50)
[2020-07-27 00:46] VITALS: BP 109/85
[2020-07-27] MEDS: HYDROCODONE/ACETAMINOPHEN 10/325MG TABLET PO PRN ×4 (00:47→20:43)
[2020-07-27] MEDS: METHYLPREDNISOLONE SOD SUCC 40 MG/ML VIAL IV SCH ×3 (02:00→18:20)
[2020-07-27 04:00] VITALS: BP 117/89
[2020-07-27 05:11] LABS: PLATELET ESTIMATE NORMAL
[2020-07-27 08:04] VITALS: BP 134/84
[2020-07-27] MEDS: FAMOTIDINE 20MG TABLET PO SCH ×2 (09:35→20:43)
[2020-07-27] MEDS: DOCUSATE SODIUM 250MG CAPSULE PO SCH (09:35)
[2020-07-27] MEDS: ASPIRIN 81MG TABLET PO SCH (09:35)
[2020-07-27] MEDS: ENOXAPARIN 40MG/0.4ML SYR SUBCUT SCH (09:37)
[2020-07-27] MEDS: GUAIFENESIN 600MG ER TABLET PO SCH ×2 (09:39→20:42)
[2020-07-27] MEDS: IPRATROPIUM/ALBUTEROL 0.5-3(2.5)MG/3ML NEB HHN PRN (10:32)
[2020-07-27] MEDS: LEVOFLOXACIN 500MG TABLET PO SCH (11:46)
[2020-07-27 12:02] VITALS: BP 115/88
[2020-07-27] MEDS: FUROSEMIDE 40MG/4ML VIAL IVP SCH (13:55)
[2020-07-27 15:32] VITALS: BP 105/75
[2020-07-27] MEDS ORDERED: IPRA3AMP9 HHN (18:49)
[2020-07-27] MEDS ORDERED: IPRA4AER INH (18:49)
[2020-07-27] MEDS ORDERED: P20 MT (18:49)
[2020-07-27 20:25] VITALS: BP 148/100
[2020-07-27] MEDS: ZOLPIDEM TARTRATE 5MG TABLET PO PRN (22:48)
[2020-07-27] MEDS: ACETAMINOPHEN 325MG TABLET PO PRN (23:54)
[2020-07-28] VITALS: BP 132/77
[2020-07-28] MEDS: IPRATROPIUM BROMIDE (0.02%) 0.5MG/2.5ML NEB HHN SCH ×3 (00:45→12:00)
[2020-07-28] MEDS: METHYLPREDNISOLONE SOD SUCC 40 MG/ML VIAL IV SCH ×2 (02:00→09:21)
[2020-07-28] MEDS: HYDROCODONE/ACETAMINOPHEN 10/325MG TABLET PO PRN ×2 (03:55→10:16)
[2020-07-28 04:00] VITALS: BP 103/84
[2020-07-28 08:02] VITALS: BP 128/82
[2020-07-28] MEDS: IPRATROPIUM/ALBUTEROL 0.5-3(2.5)MG/3ML NEB HHN PRN ×2 (08:17→12:22)
[2020-07-28] MEDS: FUROSEMIDE 40MG/4ML VIAL IVP SCH (09:00)
[2020-07-28] MEDS: FAMOTIDINE 20MG TABLET PO SCH (09:00)
[2020-07-28] MEDS: GUAIFENESIN 600MG ER TABLET PO SCH (09:00)
[2020-07-28] MEDS ORDERED: ENOXAPARIN 30MG/0.3ML SYR SUBCUT SCH (09:00)
[2020-07-28] MEDS: DOCUSATE SODIUM 250MG CAPSULE PO SCH (09:21)
[2020-07-28] MEDS: ASPIRIN 81MG TABLET PO SCH (09:21)
[2020-07-28] MEDS: LEVOFLOXACIN 500MG TABLET PO SCH (11:10)
[2020-07-28 11:48] VITALS: BP 107/70
[2020-07-28 13:43] VITALS: BP 120/42
== END 2020-07-28 15:36 | disposition home or self-care (01) | DRG 291 ==
LOC: ER 17:02 → 6WST 19:41 → ENRESERV 07-25 08:22
PROVIDERS: ADMIT Internal Medicine; ATTEND Internal Medicine
DX: I11.0 Hypertensive heart disease with heart failure (principal); J96.20 Acute and chronic respiratory failure, unspecified whether with hypoxia or hypercapnia; J44.1 Chronic obstructive pulmonary disease with (acute) exacerbation; E44.1 Mild protein-calorie malnutrition; I50.33 Acute on chronic diastolic (congestive) heart failure; E66.9 Obesity, unspecified; Z68.36 Body mass index [BMI] 36.0-36.9, adult; D72.829 Elevated white blood cell count, unspecified; Z87.891 Personal history of nicotine dependence; Z79.891 Long term (current) use of opiate analgesic; Z79.899 Other long term (current) drug therapy; Z68.26 Body mass index [BMI] 26.0-26.9, adult
CPT/HCPCS: 36415; 71045; 80048; 80053; 83735; 83880; 84484; 85025; 93005; 94640; 96365; 99291; J1650; J1885; J1940; J2270; J2920; J2930; J3475; J3490; J7060

== ENCOUNTER 2020-08-13 10:31 | Inpatient (IN) | payer MEDICARE, MEDICAID ==
[~2020-08-13] VITALS: Ht 154.9 cm; Wt 72.6 kg
[~2020-08-13 10:31] MED LIST changes: +P20 MT
[2020-08-13] MEDS ORDERED: IPRATROPIUM BROMIDE (0.02%) 0.5MG/2.5ML NEB HHN STA (10:48)
[2020-08-13] MEDS ORDERED: MAGNESIUM 2 G PREMIX 50 ML IV STA (10:48)
[2020-08-13] MEDS ORDERED: LEVOFLOXACIN 750MG PREMIX 150 ML IV STA (10:48)
[2020-08-13] MEDS ORDERED: METHYLPREDNISOLONE SOD SUCC 125 MG/2 ML VIAL IV STA (10:48)
[2020-08-13] MEDS ORDERED: ALBUTEROL (0.083%) 2.5MG/3ML NEB HHN STA (10:48)
[2020-08-13] MEDS ORDERED: VANCOMYCIN 1 G PREMIX 200 ML IV SCH (11:00)
[2020-08-13 11:14] LABS: BASOPHILS % 0.5 % (0.0-2.0); EOSINOPHILS % 0.8 % (0.0-5.0); HEMATOCRIT. 37.5 % (36.0-48.0); HEMOGLOBIN. 11.8 g/dL (12.0-16.0); LYMPHOCYTES % 10.8 % (20.0-50.0); MEAN CORPUSCULAR VOLUME 79.7 fL (81.0-99.0); MEAN PLATELET VOLUME 7.8 fl (7.4-10.4); MONOCYTES % 10.1 % (2.0-8.0); NEUTROPHILS % 77.8 % (40.0-76.0); PLATELET 207 x1000/uL (130-400); RED CELL DISTRIBUTION WIDTH 20.5 % (11.6-14.6)
[2020-08-13] MEDS ORDERED: MORPHINE SULFATE 4 MG/ML CPJ (NOT FOR IM USE) IV ONE (11:15)
[2020-08-13 11:22] LABS: CHLORIDE 107 mEq/L (98-107)
[2020-08-13 11:26] LABS: ETHANOL BLOOD < 10 mg/dL
[2020-08-13] MEDS ORDERED: ONDANSETRON HCL 4MG/2ML INJ IV PRN (13:45)
[2020-08-13] MEDS ORDERED: MAGNESIUM/ALUMINUM HYDROXIDE/SIMETHICONE 30ML UDC PO PRN (13:45)
[2020-08-13] MEDS ORDERED: IPRATROPIUM/ALBUTEROL 0.5-3(2.5)MG/3ML NEB HHN SCH (13:45)
[2020-08-13] MEDS ORDERED: LORAZEPAM 2MG/ML CPJ IV PRN (13:45)
[2020-08-13] MEDS ORDERED: DOCUSATE SODIUM 100MG CAPSULE PO PRN (13:45)
[2020-08-13] MEDS ORDERED: IPRATROPIUM/ALBUTEROL 0.5-3(2.5)MG/3ML NEB HHN PRN (13:45)
[2020-08-13] MEDS: ACETAMINOPHEN 325MG TABLET PO PRN (13:52)
[2020-08-13] MEDS: HYDROCODONE/ACETAMINOPHEN 5/325MG TABLET PO PRN ×3 (14:29→22:56)
[2020-08-13] MEDS: ENOXAPARIN 40MG/0.4ML SYR SUBCUT SCH (14:30)
[2020-08-13 14:43] LABS: CLARITY URINE CLEAR (CLEAR); COLOR URINE YELLOW (YELLOW); KETONES URINE NEGATIVE (NEGATIVE); LEUKOCYTE ESTERASE URINE NEGATIVE (NEGATIVE); NITRITE URINE POSITIVE (NEGATIVE); OCCULT BLOOD URINE NEGATIVE (NEGATIVE); PROTEIN URINE NEGATIVE (NEGATIVE); UROBILINOGEN URINE 0.2 E.U./dL (0.2-1.0)
[2020-08-13 14:58] LABS: *AMPHETAMINES SCREEN URINE NEGATIVE (NEGATIVE); *BARBITURATES SCREEN URINE NEGATIVE (NEGATIVE); *BENZODIAZEPINES SCREEN URINE NEGATIVE (NEGATIVE); *COCAINE SCREEN URINE NEGATIVE (NEGATIVE)
[2020-08-13 14:59] LABS: METHADONE URINE SCREEN NEGATIVE (NEGATIVE); OPIATES URINE SCREEN PRESUMTIVE POSITIVE (NEGATIVE); PHENCYCLIDINE URINE SCREEN NEGATIVE (NEGATIVE)
[2020-08-13 15:00] LABS: CANNABINOID URINE SCREEN NEGATIVE (NEGATIVE)
[2020-08-13] MEDS: GUAIFENESIN 200MG/10ML SUGAR FREE UDC PO PRN ×2 (15:06→22:55)
[2020-08-13 17:00] VITALS: BP 135/99
[2020-08-13] MEDS: METHYLPREDNISOLONE SOD SUCC 125 MG/2 ML VIAL IV SCH ×2 (18:07→23:45)
[2020-08-13 20:00] VITALS: BP 138/98
[2020-08-13] MEDS: IPRATROPIUM/ALBUTEROL 0.5-3(2.5)MG/3ML NEB HHN SCH (21:20)
[2020-08-14] VITALS: BP 138/97
[2020-08-14] MEDS: IPRATROPIUM/ALBUTEROL 0.5-3(2.5)MG/3ML NEB HHN SCH ×3 (00:40→21:00)
[2020-08-14] MEDS: HYDROCODONE/ACETAMINOPHEN 5/325MG TABLET PO PRN ×2 (03:06→09:38)
[2020-08-14 04:00] VITALS: BP 129/89
[2020-08-14] MEDS: METHYLPREDNISOLONE SOD SUCC 125 MG/2 ML VIAL IV SCH ×3 (06:20→17:17)
[2020-08-14 08:50] VITALS: BP 127/90
[2020-08-14] MEDS: ENOXAPARIN 40MG/0.4ML SYR SUBCUT SCH (09:31)
[2020-08-14 09:43] LABS: BG BASE EXCESS 3.3 mmol/L (-2.0-2.0); BG CARBOXYHEMOGLOBIN 0.5 % (0.5-1.5); BG DEOXYHEMOGLOBIN 2.7 % (0.0-5.0); BG FRACTION INSPIRED OXYGEN 34; BG HCO3 ACT 28.3 mmol/L (22.0-26.0); BG METHEMOGLOBIN 0.3 % (0.0-1.5); BG OXYGEN SATURATION 97.3 % (92.0-98.5); BG OXYHEMOGLOBIN 96.5 % (94.0-97.0); BG PCO2 44.7 mmHg (35.0-45.0); BG PH 7.419 (7.350-7.450); BG PO2 94.5 mmHg (75.0-100.0); BG SAMPLE SITE RIGHT RADIAL; BG TOTAL HEMOGLOBIN 12.2 g/dL (12.0-18.0); BG VENT MODE NASAL CANNULA
[2020-08-14 12:00] VITALS: BP 120/90
[2020-08-14] MEDS ORDERED: HYDROCODONE/ACETAMINOPHEN 10/325MG TABLET PO PRN (13:30)
[2020-08-14] MEDS: HYDROCODONE/ACETAMINOPHEN 10/325MG TABLET PO PRN ×2 (13:55→20:46)
[2020-08-14] MEDS ORDERED: CEFTRIAXONE 1,000 MG in DEXTROSE 5% WATER 50 ML IV SCH (15:00)
[2020-08-14 16:00] VITALS: BP 134/91
[2020-08-14] MEDS: MONTELUKAST SODIUM 10MG TABLET PO SCH (17:16)
[2020-08-14 20:00] VITALS: BP 140/109
[2020-08-14] MEDS: ZOLPIDEM TARTRATE 5MG TABLET PO PRN (20:49)
[2020-08-14] MEDS: FAMOTIDINE 20MG TABLET PO SCH (20:54)
[2020-08-14] MEDS: FLUTICASONE PROPIONATE 50MCG/SPRAY BOTTLE BOTHNSTRLS SCH (21:00)
[2020-08-15] VITALS: BP 117/87
[2020-08-15] MEDS: IPRATROPIUM/ALBUTEROL 0.5-3(2.5)MG/3ML NEB HHN SCH ×5 (00:16→20:16)
[2020-08-15] MEDS: HYDROCODONE/ACETAMINOPHEN 10/325MG TABLET PO PRN ×4 (01:17→20:48)
[2020-08-15] MEDS: METHYLPREDNISOLONE SOD SUCC 125 MG/2 ML VIAL IV SCH ×4 (01:18→21:00)
[2020-08-15 01:46] LABS: HEMATOCRIT. 36.8 % (36.0-48.0); HEMOGLOBIN. 11.8 g/dL (12.0-16.0); MEAN CORPUSCULAR HEMOGLOBIN 25.4 pg (28.0-32.0); MEAN CORPUSCULAR VOLUME 79.2 fL (81.0-99.0); MEAN PLATELET VOLUME 8.1 fl (7.4-10.4); PLATELET 215 x1000/uL (130-400); RED BLOOD CELL COUNT 4.64 mill/uL (4.2-5.4); RED CELL DISTRIBUTION WIDTH 20.1 % (11.6-14.6)
[2020-08-15 01:59] LABS: CHLORIDE 105 mEq/L (98-107)
[2020-08-15 04:00] VITALS: BP 141/93
[2020-08-15 05:28] LABS: PLATELET ESTIMATE NORMAL
[2020-08-15 08:00] VITALS: BP 138/108
[2020-08-15] MEDS: FAMOTIDINE 20MG TABLET PO SCH ×2 (09:00→20:49)
[2020-08-15] MEDS: ENOXAPARIN 40MG/0.4ML SYR SUBCUT SCH (09:00)
[2020-08-15] MEDS: FLUTICASONE PROPIONATE 50MCG/SPRAY BOTTLE BOTHNSTRLS SCH ×2 (09:16→20:49)
[2020-08-15] MEDS: MORPHINE SULFATE 2 MG/ML CPJ (NOT FOR IM USE) IV PRN ×3 (10:51→18:39)
[2020-08-15 12:00] VITALS: BP 136/95
[2020-08-15] MEDS: CEFTRIAXONE 1,000 MG in DEXTROSE 5% WATER 50 ML IV SCH (14:44)
[2020-08-15] MEDS ORDERED: TERBUTALINE SULFATE 1MG/ML VIAL SUBCUT NR (15:00)
[2020-08-15 16:00] VITALS: BP 138/98
[2020-08-15] MEDS: MONTELUKAST SODIUM 10MG TABLET PO SCH (17:00)
[2020-08-15 20:00] VITALS: BP 143/104
[2020-08-15] MEDS: LISINOPRIL 40MG TABLET PO SCH (22:04)
[2020-08-15] MEDS: ZOLPIDEM TARTRATE 5MG TABLET PO PRN ×2 (22:52→23:57)
[2020-08-16] VITALS: BP 141/105
[2020-08-16] MEDS: ZOLPIDEM TARTRATE 5MG TABLET PO PRN ×2 (00:18→23:35)
[2020-08-16] MEDS: IPRATROPIUM/ALBUTEROL 0.5-3(2.5)MG/3ML NEB HHN SCH ×6 (00:38→21:25)
[2020-08-16] MEDS: MORPHINE SULFATE 2 MG/ML CPJ (NOT FOR IM USE) IV PRN ×3 (01:32→20:23)
[2020-08-16] MEDS: METHYLPREDNISOLONE SOD SUCC 125 MG/2 ML VIAL IV SCH ×4 (03:48→20:23)
[2020-08-16 04:00] VITALS: BP 161/101
[2020-08-16] MEDS: HYDROCODONE/ACETAMINOPHEN 10/325MG TABLET PO PRN ×3 (04:52→22:42)
[2020-08-16 08:00] VITALS: BP 123/93
[2020-08-16] MEDS: FAMOTIDINE 20MG TABLET PO SCH ×4 (08:48→20:36)
[2020-08-16] MEDS: LISINOPRIL 40MG TABLET PO SCH (08:49)
[2020-08-16] MEDS: FLUTICASONE PROPIONATE 50MCG/SPRAY BOTTLE BOTHNSTRLS SCH ×2 (08:50→21:00)
[2020-08-16] MEDS: ENOXAPARIN 40MG/0.4ML SYR SUBCUT SCH (09:00)
[2020-08-16 12:00] VITALS: BP 176/109
[2020-08-16] MEDS: CEFTRIAXONE 1,000 MG in DEXTROSE 5% WATER 50 ML IV SCH (12:26)
[2020-08-16] MEDS: CLONIDINE 0.1MG TABLET PO PRN ×3 (12:27→20:23)
[2020-08-16] MEDS ORDERED: CLONIDINE HCL 0.2MG/24HR PATCH TD SCH ×2 (13:00→15:00)
[2020-08-16 16:00] VITALS: BP 144/92
[2020-08-16] MEDS ORDERED: SODIUM CHLORIDE 3% FOR INH 15ML VIAL NEB INH SCH (16:00)
[2020-08-16] MEDS: MONTELUKAST SODIUM 10MG TABLET PO SCH (16:29)
[2020-08-16 20:00] VITALS: BP 156/101
[2020-08-17] VITALS: BP_SYST 158; BP_SYST 168; BP_DIAS 105; BP_DIAS 107
[2020-08-17] MEDS: IPRATROPIUM/ALBUTEROL 0.5-3(2.5)MG/3ML NEB HHN SCH ×8 (01:00→21:00)
[2020-08-17] MEDS: CLONIDINE 0.1MG TABLET PO PRN (01:44)
[2020-08-17] MEDS: MORPHINE SULFATE 2 MG/ML CPJ (NOT FOR IM USE) IV PRN ×3 (02:41→20:41)
[2020-08-17] MEDS: METHYLPREDNISOLONE SOD SUCC 125 MG/2 ML VIAL IV SCH ×2 (03:55→08:26)
[2020-08-17 04:00] VITALS: BP 128/72
[2020-08-17] MEDS: LISINOPRIL 40MG TABLET PO SCH (08:28)
[2020-08-17] MEDS: FAMOTIDINE 20MG TABLET PO SCH ×2 (08:28→20:33)
[2020-08-17] MEDS: HYDROCODONE/ACETAMINOPHEN 10/325MG TABLET PO PRN ×3 (08:29→23:41)
[2020-08-17] MEDS: ENOXAPARIN 40MG/0.4ML SYR SUBCUT SCH (08:32)
[2020-08-17] MEDS: FLUTICASONE PROPIONATE 50MCG/SPRAY BOTTLE BOTHNSTRLS SCH ×2 (09:00→20:42)
[2020-08-17 12:00] VITALS: BP 121/68
[2020-08-17] MEDS: CEFTRIAXONE 1,000 MG in DEXTROSE 5% WATER 50 ML IV SCH (12:31)
[2020-08-17] MEDS ORDERED: METHYLPREDNISOLONE SOD SUCC 125 MG/2 ML VIAL IV SCH (14:00)
[2020-08-17 16:00] VITALS: BP 157/101
[2020-08-17] MEDS: MONTELUKAST SODIUM 10MG TABLET PO SCH (17:23)
[2020-08-17 20:00] VITALS: BP 155/103
[2020-08-17] MEDS ORDERED: TERBUTALINE SULFATE 1MG/ML VIAL SUBCUT NR (20:00)
[2020-08-17] MEDS: THEOPHYLLINE ANHYDROUS 80 MG/15 ML 120ML PO SCH ×2 (20:33→23:40)
[2020-08-17] MEDS: ZOLPIDEM TARTRATE 5MG TABLET PO PRN (23:40)
[2020-08-18] VITALS: BP 158/107
[2020-08-18] MEDS: IPRATROPIUM/ALBUTEROL 0.5-3(2.5)MG/3ML NEB HHN SCH ×3 (01:00→12:20)
[2020-08-18] MEDS: MORPHINE SULFATE 2 MG/ML CPJ (NOT FOR IM USE) IV PRN ×2 (03:22→10:07)
[2020-08-18] MEDS: ACETAMINOPHEN 325MG TABLET PO PRN (03:30)
[2020-08-18 04:00] VITALS: BP 135/93
[2020-08-18] MEDS: THEOPHYLLINE ANHYDROUS 80 MG/15 ML 120ML PO SCH ×2 (05:04→12:00)
[2020-08-18] MEDS: HYDROCODONE/ACETAMINOPHEN 10/325MG TABLET PO PRN ×2 (06:30→13:37)
[2020-08-18 08:00] VITALS: BP 122/77
[2020-08-18] MEDS: FAMOTIDINE 20MG TABLET PO SCH ×2 (09:00→09:43)
[2020-08-18] MEDS ORDERED: METHYLPREDNISOLONE SOD SUCC 40 MG/ML VIAL IV SCH (09:00)
[2020-08-18] MEDS: ENOXAPARIN 40MG/0.4ML SYR SUBCUT SCH ×2 (09:00→09:42)
[2020-08-18] MEDS: LISINOPRIL 40MG TABLET PO SCH (09:43)
[2020-08-18 12:00] VITALS: BP 132/90
[2020-08-18 12:12] VITALS: BP 122/77
[2020-08-18] MEDS: CEFTRIAXONE 1,000 MG in DEXTROSE 5% WATER 50 ML IV SCH (13:00)
[2020-08-18 13:37] VITALS: BP 132/90
[2020-08-19] MEDS ORDERED: IPRA3AMP9 NEB (18:27)
[2020-08-19] MEDS ORDERED: P20 MT (18:27)
[2020-08-19] MEDS ORDERED: FLUT1DIS3 INH (18:27)
== END 2020-08-18 16:00 | disposition home or self-care (01) | DRG 871 ==
LOC: ER 10:45 → 7WST 11:40 → EDBEDREQSVC 13:48 → ENRESERV 15:15 → 5WST 08-14 08:48
PROVIDERS: ADMIT Hospitalist; ATTEND Hospitalist
PROC: 5A09357 Assistance with Respiratory Ventilation, Less than 24 Consecutive Hours, Continuous Positive Airway Pressure (ICD-10-PCS; 2020-08-13)
PROC: 05HY33Z Insertion of Infusion Device into Upper Vein, Percutaneous Approach (ICD-10-PCS; principal; 2020-08-16)
PROC: B54NZZA Ultrasonography of Left Upper Extremity Veins, Guidance (ICD-10-PCS; 2020-08-16)
DX: A41.9 Sepsis, unspecified organism (principal); J96.21 Acute and chronic respiratory failure with hypoxia; J44.1 Chronic obstructive pulmonary disease with (acute) exacerbation; I50.32 Chronic diastolic (congestive) heart failure; N39.0 Urinary tract infection, site not specified; B19.20 Unspecified viral hepatitis C without hepatic coma; E66.9 Obesity, unspecified; I11.0 Hypertensive heart disease with heart failure; G89.4 Chronic pain syndrome; E78.5 Hyperlipidemia, unspecified; K21.9 Gastro-esophageal reflux disease without esophagitis; M19.90 Unspecified osteoarthritis, unspecified site; I27.21 Secondary pulmonary arterial hypertension; J30.9 Allergic rhinitis, unspecified; Z20.822 Contact with and (suspected) exposure to COVID-19; Z79.52 Long term (current) use of systemic steroids; Z88.8 Allergy status to other drugs, medicaments and biological substances; Z91.040 Latex allergy status; Z68.30 Body mass index [BMI] 30.0-30.9, adult; Z79.899 Other long term (current) drug therapy; Z79.82 Long term (current) use of aspirin; Z99.81 Dependence on supplemental oxygen; Z87.891 Personal history of nicotine dependence; Z87.440 Personal history of urinary (tract) infections
CPT/HCPCS: 36415; 36600; 71045; 76937; 80053; 80305; 80320; 81003; 82375; 82805; 83605; 83880; 84484; 85025; 93005; 94640; 94660; 99285; C1725; C1893; J0696; J1650; J1956; J2270; J2920; J2930; J3105; J3370; J3475; J7060; U0003; G0480

== ENCOUNTER 2020-08-18 21:23 | Inpatient (IN) | payer MEDICARE, MEDICAID ==
[~2020-08-18] VITALS: Ht 167.6 cm; Wt 90.7 kg
[~2020-08-18 21:23] MED LIST changes: -AZIT500T8 MT; -FLUT1BLS INH
[2020-08-18] MEDS ORDERED: ALBUTEROL (0.083%) 2.5MG/3ML NEB HHN STA (21:27)
[2020-08-18] MEDS ORDERED: IPRATROPIUM BROMIDE (0.02%) 0.5MG/2.5ML NEB HHN STA (21:27)
[2020-08-18] MEDS ORDERED: METHYLPREDNISOLONE SOD SUCC 125 MG/2 ML VIAL IV STA (21:27)
[2020-08-18] MEDS ORDERED: LEVOFLOXACIN 500MG PREMIX 100 ML IV ONE (21:30)
[2020-08-18] MEDS ORDERED: VANCOMYCIN 1 G PREMIX 200 ML IV SCH (21:30)
[2020-08-18] MEDS ORDERED: MAGNESIUM 2 G PREMIX 50 ML IV ONE (21:30)
[2020-08-18] MEDS ORDERED: MORPHINE SULFATE 4 MG/ML CPJ (NOT FOR IM USE) IV ONE (22:00)
[2020-08-19 03:34] LABS: CLARITY URINE CLEAR (CLEAR); COLOR URINE YELLOW (YELLOW); KETONES URINE NEGATIVE (NEGATIVE); LEUKOCYTE ESTERASE URINE NEGATIVE (NEGATIVE); NITRITE URINE NEGATIVE (NEGATIVE); OCCULT BLOOD URINE NEGATIVE (NEGATIVE); PH URINE 5.5 (4.5-8.0); PROTEIN URINE NEGATIVE (NEGATIVE); SPECIFIC GRAVITY URINE 1.012 (1.005-1.030); UROBILINOGEN URINE 0.2 E.U./dL (0.2-1.0)
[2020-08-19 05:39] LABS: HEMATOCRIT. 41.4 % (36.0-48.0); MEAN PLATELET VOLUME 7.8 fl (7.4-10.4); PLATELET 207 x1000/uL (130-400); RED BLOOD CELL COUNT 5.18 mill/uL (4.2-5.4)
[2020-08-19 05:47] LABS: CHLORIDE 101 mEq/L (98-107)
[2020-08-19 05:50] LABS: PLATELET ESTIMATE NORMAL
[2020-08-19] MEDS ORDERED: ACETAMINOPHEN WITH CODEINE 300/30MG TABLET PO ONE (06:30)
[2020-08-19] MEDS ORDERED: FUROSEMIDE 100MG/10ML VIAL IV STA (06:31)
[2020-08-19] MEDS ORDERED: ALBUTEROL (0.083%) 2.5MG/3ML NEB HHN ONE (06:45)
[2020-08-19] MEDS ORDERED: SODIUM BICARBONATE 8.4% 1 MEQ/ML 50ML SYR IV ONE (06:45)
[2020-08-19] MEDS ORDERED: CALCIUM CHLORIDE 1GM/10ML SYR IV ONE (06:45)
[2020-08-19] MEDS ORDERED: DEXTROSE 50% WATER 50ML SYRINGE IV ONE (06:45)
[2020-08-19] MEDS ORDERED: INSULIN REGULAR (HUMULIN R) 300UNITS/3ML VIAL IV ONE (06:45)
[2020-08-19] MEDS ORDERED: ONDANSETRON HCL 4MG/2ML INJ IV PRN (09:15)
[2020-08-19] MEDS ORDERED: ALBUTEROL 6.7GM HFA INHALER ORI PRN (10:45)
[2020-08-19 11:00] VITALS: BP 113/68
[2020-08-19] MEDS: FUROSEMIDE 40MG/4ML VIAL IVP SCH (11:01)
[2020-08-19] MEDS: ENOXAPARIN 40MG/0.4ML SYR SUBCUT SCH (11:02)
[2020-08-19] MEDS: HYDROCODONE/ACETAMINOPHEN 10/325MG TABLET PO PRN ×2 (11:03→20:30)
[2020-08-19 12:00] VITALS: BP 113/81
[2020-08-19] MEDS ORDERED: IPRATROPIUM/ALBUTEROL 0.5-3(2.5)MG/3ML NEB HHN SCH (12:00)
[2020-08-19] MEDS ORDERED: LACTULOSE 20G/30ML UDC PO PRN (13:45)
[2020-08-19] MEDS ORDERED: LACTULOSE 20G/30ML UDC PO SCH (13:45)
[2020-08-19] MEDS: DOCUSATE SODIUM 250MG CAPSULE PO SCH (14:44)
[2020-08-19] MEDS: LISINOPRIL 40MG TABLET PO SCH (14:45)
[2020-08-19 16:00] VITALS: BP 97/73
[2020-08-19] MEDS: PREDNISONE 20MG TABLET PO SCH (18:07)
[2020-08-19] MEDS ORDERED: IPRA3AMP9 NEB (18:27)
[2020-08-19] MEDS ORDERED: FLUT1DIS3 INH (18:27)
[2020-08-19] MEDS ORDERED: P20 MT (18:27)
[2020-08-19] MEDS ORDERED: IPRATROPIUM/ALBUTEROL 0.5-3(2.5)MG/3ML NEB HHN PRN (18:30)
[2020-08-19] MEDS ORDERED: BUDESONIDE 0.5MG/2ML NEB HHN SCH ×2 (18:45→21:00)
[2020-08-19 20:00] VITALS: BP 114/84
[2020-08-19] MEDS: GUAIFENESIN 600MG ER TABLET PO SCH (20:30)
[2020-08-19] MEDS ORDERED: ZOLPIDEM TARTRATE 5MG TABLET PO PRN (21:00)
[2020-08-19] MEDS: MONTELUKAST SODIUM 10MG TABLET PO SCH (23:25)
[2020-08-19] MEDS: THEOPHYLLINE ANHYDROUS 80 MG/15 ML 120ML PO SCH (23:27)
[2020-08-19] MEDS: FLUTICASONE PROPIONATE 50MCG/SPRAY BOTTLE BOTHNSTRLS SCH (23:27)
[2020-08-20] VITALS: BP 118/82
[2020-08-20] MEDS: ACETAMINOPHEN 325MG TABLET PO PRN (01:24)
[2020-08-20] MEDS: IPRATROPIUM/ALBUTEROL 0.5-3(2.5)MG/3ML NEB HHN SCH ×3 (01:48→15:16)
[2020-08-20] MEDS: HYDROCODONE/ACETAMINOPHEN 10/325MG TABLET PO PRN ×3 (02:35→18:00)
[2020-08-20 04:00] VITALS: BP 103/69
[2020-08-20] MEDS: THEOPHYLLINE ANHYDROUS 80 MG/15 ML 120ML PO SCH ×3 (06:00→17:36)
[2020-08-20 07:39] LABS: HEMATOCRIT. 41.7 % (36.0-48.0); HEMOGLOBIN. 12.8 g/dL (12.0-16.0); MEAN CORPUSCULAR HEMOGLOBIN 24.7 pg (28.0-32.0); MEAN CORPUSCULAR VOLUME 80.3 fL (81.0-99.0); MEAN PLATELET VOLUME 8.6 fl (7.4-10.4); PLATELET 228 x1000/uL (130-400); RED BLOOD CELL COUNT 5.19 mill/uL (4.2-5.4); RED CELL DISTRIBUTION WIDTH 20.2 % (11.6-14.6)
[2020-08-20 07:51] LABS: CHLORIDE 94 mEq/L (98-107)
[2020-08-20 08:00] VITALS: BP 116/83
[2020-08-20] MEDS: FLUTICASONE PROPIONATE 50MCG/SPRAY BOTTLE BOTHNSTRLS SCH ×3 (09:00→21:35)
[2020-08-20] MEDS: GUAIFENESIN 600MG ER TABLET PO SCH ×2 (09:09→21:34)
[2020-08-20] MEDS: PREDNISONE 20MG TABLET PO SCH (09:09)
[2020-08-20] MEDS: FUROSEMIDE 40MG/4ML VIAL IVP SCH (09:09)
[2020-08-20] MEDS: LISINOPRIL 40MG TABLET PO SCH (09:09)
[2020-08-20] MEDS: ENOXAPARIN 40MG/0.4ML SYR SUBCUT SCH (09:10)
[2020-08-20] MEDS: DOCUSATE SODIUM 250MG CAPSULE PO SCH (09:10)
[2020-08-20 12:00] VITALS: BP 92/69
[2020-08-20 12:03] LABS: PLATELET ESTIMATE NORMAL
[2020-08-20] MEDS ORDERED: SORBITOL 70% SOLN 30ML PO NR (12:30)
[2020-08-20 16:00] VITALS: BP 93/65
[2020-08-20] MEDS: MONTELUKAST SODIUM 10MG TABLET PO SCH (17:36)
[2020-08-20] MEDS: DIGOXIN 500MCG/2ML AMP IV NR ×3 (18:23→18:55)
[2020-08-20] MEDS ORDERED: DIGOXIN 250MCG TABLET PO NR (19:30)
[2020-08-20 20:00] VITALS: BP 102/74
[2020-08-20] MEDS: BUDESONIDE 0.5MG/2ML NEB HHN SCH (21:38)
[2020-08-20] MEDS: IPRATROPIUM BROMIDE (0.02%) 0.5MG/2.5ML NEB HHN SCH (21:38)
[2020-08-20] MEDS: ZOLPIDEM TARTRATE 5MG TABLET PO PRN (21:58)
[2020-08-21] VITALS: BP 94/60
[2020-08-21] MEDS: HYDROCODONE/ACETAMINOPHEN 10/325MG TABLET PO PRN ×3 (00:06→21:04)
[2020-08-21] MEDS: IPRATROPIUM BROMIDE (0.02%) 0.5MG/2.5ML NEB HHN SCH ×4 (01:47→21:20)
[2020-08-21 04:00] VITALS: BP 89/62
[2020-08-21] MEDS: ACETAMINOPHEN 325MG TABLET PO PRN (06:15)
[2020-08-21 08:00] VITALS: BP 81/56
[2020-08-21] MEDS: BUDESONIDE 0.5MG/2ML NEB HHN SCH ×2 (08:32→21:20)
[2020-08-21] MEDS: LISINOPRIL 40MG TABLET PO SCH (09:00)
[2020-08-21] MEDS: GUAIFENESIN 600MG ER TABLET PO SCH ×2 (09:26→21:02)
[2020-08-21] MEDS: PREDNISONE 20MG TABLET PO SCH (09:26)
[2020-08-21] MEDS: DOCUSATE SODIUM 250MG CAPSULE PO SCH (09:26)
[2020-08-21] MEDS: ENOXAPARIN 30MG/0.3ML SYR SUBCUT SCH ×2 (09:27→21:02)
[2020-08-21] MEDS: FLUTICASONE PROPIONATE 50MCG/SPRAY BOTTLE BOTHNSTRLS SCH ×2 (09:29→21:04)
[2020-08-21 10:01] LABS: BASOPHILS % 0.5 % (0.0-2.0); EOSINOPHILS % 0.2 % (0.0-5.0); HEMATOCRIT. 45.4 % (36.0-48.0); HEMOGLOBIN. 14.1 g/dL (12.0-16.0); LYMPHOCYTES % 8.6 % (20.0-50.0); MEAN CORPUSCULAR HEMOGLOBIN 25.2 pg (28.0-32.0); MEAN CORPUSCULAR VOLUME 81.4 fL (81.0-99.0); MEAN PLATELET VOLUME 8.6 fl (7.4-10.4); MONOCYTES % 11.4 % (2.0-8.0); NEUTROPHILS % 79.3 % (40.0-76.0); PLATELET 193 x1000/uL (130-400); RED BLOOD CELL COUNT 5.58 mill/uL (4.2-5.4); RED CELL DISTRIBUTION WIDTH 20.2 % (11.6-14.6)
[2020-08-21 10:13] LABS: CHLORIDE 93 mEq/L (98-107)
[2020-08-21 12:00] VITALS: BP 105/72
[2020-08-21] MEDS: FUROSEMIDE 40MG/4ML VIAL IVP SCH (14:24)
[2020-08-21 16:00] VITALS: BP 100/74
[2020-08-21] MEDS: MONTELUKAST SODIUM 10MG TABLET PO SCH (17:23)
[2020-08-21] MEDS: ZOLPIDEM TARTRATE 5MG TABLET PO PRN (22:13)
[2020-08-22] MEDS: IPRATROPIUM BROMIDE (0.02%) 0.5MG/2.5ML NEB HHN SCH ×5 (02:18→20:26)
[2020-08-22 04:00] VITALS: BP 96/66
[2020-08-22] MEDS: HYDROCODONE/ACETAMINOPHEN 10/325MG TABLET PO PRN ×3 (04:43→23:16)
[2020-08-22 08:00] VITALS: BP 104/75
[2020-08-22] MEDS: LISINOPRIL 40MG TABLET PO SCH (09:00)
[2020-08-22] MEDS: BUDESONIDE 0.5MG/2ML NEB HHN SCH ×2 (09:22→20:26)
[2020-08-22] MEDS: PREDNISONE 20MG TABLET PO SCH (09:27)
[2020-08-22] MEDS: FUROSEMIDE 40MG/4ML VIAL IVP SCH (09:27)
[2020-08-22] MEDS: GUAIFENESIN 600MG ER TABLET PO SCH ×3 (09:27→21:00)
[2020-08-22] MEDS: DOCUSATE SODIUM 250MG CAPSULE PO SCH (09:27)
[2020-08-22] MEDS: ENOXAPARIN 30MG/0.3ML SYR SUBCUT SCH ×2 (09:27→20:34)
[2020-08-22] MEDS: FLUTICASONE PROPIONATE 50MCG/SPRAY BOTTLE BOTHNSTRLS SCH ×2 (09:28→20:34)
[2020-08-22 09:44] LABS: BASOPHILS % 0.3 % (0.0-2.0); EOSINOPHILS % 0.7 % (0.0-5.0); HEMATOCRIT. 44.3 % (36.0-48.0); LYMPHOCYTES % 9.9 % (20.0-50.0); MEAN CORPUSCULAR HEMOGLOBIN 25.4 pg (28.0-32.0); MEAN CORPUSCULAR VOLUME 80.5 fL (81.0-99.0); MEAN PLATELET VOLUME 8.7 fl (7.4-10.4); MONOCYTES % 11.4 % (2.0-8.0); NEUTROPHILS % 77.7 % (40.0-76.0); PLATELET 176 x1000/uL (130-400); RED CELL DISTRIBUTION WIDTH 19.7 % (11.6-14.6)
[2020-08-22 09:52] LABS: CHLORIDE 97 mEq/L (98-107)
[2020-08-22 12:00] VITALS: BP 104/82
[2020-08-22 16:00] VITALS: BP 100/77
[2020-08-22] MEDS: MONTELUKAST SODIUM 10MG TABLET PO SCH (17:39)
[2020-08-22] MEDS: BENZONATATE 100MG CAPSULE PO PRN (20:34)
[2020-08-22 21:17] VITALS: BP 110/80
[2020-08-22] MEDS: ZOLPIDEM TARTRATE 5MG TABLET PO PRN (21:55)
[2020-08-23] VITALS (7 sets, daily range): BP systolic 93–106; BP diastolic 62–77
[2020-08-23] MEDS: IPRATROPIUM BROMIDE (0.02%) 0.5MG/2.5ML NEB HHN SCH ×4 (00:41→21:31)
[2020-08-23] MEDS: ACETAMINOPHEN 325MG TABLET PO PRN ×2 (04:39→14:05)
[2020-08-23] MEDS: BUDESONIDE 0.5MG/2ML NEB HHN SCH (08:37)
[2020-08-23] MEDS: LISINOPRIL 40MG TABLET PO SCH (09:00)
[2020-08-23] MEDS: GUAIFENESIN 600MG ER TABLET PO SCH ×3 (09:00→20:24)
[2020-08-23] MEDS: FUROSEMIDE 40MG/4ML VIAL IVP SCH (09:00)
[2020-08-23] MEDS: ENOXAPARIN 30MG/0.3ML SYR SUBCUT SCH ×2 (09:41→20:24)
[2020-08-23] MEDS: PREDNISONE 20MG TABLET PO SCH (09:41)
[2020-08-23] MEDS: DOCUSATE SODIUM 250MG CAPSULE PO SCH (09:41)
[2020-08-23] MEDS: BENZONATATE 100MG CAPSULE PO PRN ×2 (09:49→17:57)
[2020-08-23] MEDS: GUAIFENESIN 200MG/10ML SUGAR FREE UDC PO PRN ×2 (10:27→14:55)
[2020-08-23] MEDS ORDERED: DIGOXIN 500MCG/2ML AMP IV SCH (13:00)
[2020-08-23] MEDS: MONTELUKAST SODIUM 10MG TABLET PO SCH (17:57)
[2020-08-23] MEDS: HYDROCODONE/ACETAMINOPHEN 10/325MG TABLET PO PRN (19:00)
[2020-08-23] MEDS: ZOLPIDEM TARTRATE 5MG TABLET PO PRN (21:19)
[2020-08-23] MEDS: OXYCODONE HCL/ACETAMINOPHEN 5/325MG TABLET PO PRN (21:20)
[2020-08-24] VITALS: BP 93/73
[2020-08-24] MEDS: OXYCODONE HCL/ACETAMINOPHEN 5/325MG TABLET PO PRN ×4 (02:48→17:51)
[2020-08-24] MEDS: IPRATROPIUM BROMIDE (0.02%) 0.5MG/2.5ML NEB HHN SCH ×4 (03:43→21:57)
[2020-08-24 04:00] VITALS: BP 114/81
[2020-08-24 08:00] VITALS: BP 113/81
[2020-08-24] MEDS: GUAIFENESIN 600MG ER TABLET PO SCH ×2 (08:21→21:39)
[2020-08-24] MEDS: FUROSEMIDE 40MG TABLET PO SCH (08:21)
[2020-08-24] MEDS: ENOXAPARIN 30MG/0.3ML SYR SUBCUT SCH ×2 (08:22→21:41)
[2020-08-24] MEDS: DOCUSATE SODIUM 250MG CAPSULE PO SCH (08:22)
[2020-08-24] MEDS: LISINOPRIL 40MG TABLET PO SCH (08:22)
[2020-08-24] MEDS: PREDNISONE 20MG TABLET PO SCH (08:22)
[2020-08-24 12:00] VITALS: BP 137/121
[2020-08-24 16:00] VITALS: BP 129/93
[2020-08-24] MEDS: MONTELUKAST SODIUM 10MG TABLET PO SCH (17:51)
[2020-08-24] MEDS: ZOLPIDEM TARTRATE 5MG TABLET PO PRN (21:55)
[2020-08-24] MEDS ORDERED: ZOLPIDEM TARTRATE 5MG TABLET PO PRN (22:00)
[2020-08-24 23:33] LABS: HEMATOCRIT. 41.6 % (36.0-48.0); HEMOGLOBIN. 12.9 g/dL (12.0-16.0); MEAN CORPUSCULAR HEMOGLOBIN 24.7 pg (28.0-32.0); MEAN PLATELET VOLUME 8.7 fl (7.4-10.4); PLATELET 218 x1000/uL (130-400); RED BLOOD CELL COUNT 5.21 mill/uL (4.2-5.4); RED CELL DISTRIBUTION WIDTH 19.3 % (11.6-14.6)
[2020-08-24 23:41] LABS: CHLORIDE 93 mEq/L (98-107)
[2020-08-25 02:43] LABS: PLATELET ESTIMATE NORMAL
[2020-08-25 02:58] VITALS: BP 175/87
[2020-08-25] MEDS: OXYCODONE HCL/ACETAMINOPHEN 5/325MG TABLET PO PRN ×5 (02:58→21:55)
[2020-08-25] MEDS: IPRATROPIUM BROMIDE (0.02%) 0.5MG/2.5ML NEB HHN SCH ×4 (03:29→20:59)
[2020-08-25 08:00] VITALS: BP 91/67
[2020-08-25] MEDS: ENOXAPARIN 30MG/0.3ML SYR SUBCUT SCH ×2 (08:21→21:37)
[2020-08-25] MEDS: PREDNISONE 20MG TABLET PO SCH (08:22)
[2020-08-25] MEDS: FUROSEMIDE 40MG TABLET PO SCH (08:22)
[2020-08-25] MEDS: DOCUSATE SODIUM 250MG CAPSULE PO SCH (08:22)
[2020-08-25] MEDS: GUAIFENESIN 600MG ER TABLET PO SCH ×2 (08:26→21:55)
[2020-08-25] MEDS: LISINOPRIL 40MG TABLET PO SCH (08:26)
[2020-08-25 12:13] VITALS: BP 96/46
[2020-08-25 16:00] VITALS: BP 92/60
[2020-08-25] MEDS: MONTELUKAST SODIUM 10MG TABLET PO SCH (17:09)
[2020-08-25 20:00] VITALS: BP 106/67
[2020-08-25] MEDS: ZOLPIDEM TARTRATE 5MG TABLET PO PRN (22:21)
[2020-08-26] VITALS: BP 82/60
[2020-08-26] MEDS: IPRATROPIUM BROMIDE (0.02%) 0.5MG/2.5ML NEB HHN SCH ×4 (02:42→21:22)
[2020-08-26] MEDS: ACETAMINOPHEN 325MG TABLET PO PRN ×2 (03:39→08:51)
[2020-08-26 04:00] VITALS: BP 96/64
[2020-08-26 08:00] VITALS: BP 94/68
[2020-08-26] MEDS: ENOXAPARIN 30MG/0.3ML SYR SUBCUT SCH ×2 (08:50→21:22)
[2020-08-26] MEDS: GUAIFENESIN 600MG ER TABLET PO SCH ×2 (08:51→21:22)
[2020-08-26] MEDS: DOCUSATE SODIUM 250MG CAPSULE PO SCH (08:51)
[2020-08-26] MEDS: PREDNISONE 20MG TABLET PO SCH (08:51)
[2020-08-26] MEDS: BENZONATATE 100MG CAPSULE PO PRN ×2 (08:57→17:04)
[2020-08-26 12:00] VITALS: BP 99/60
[2020-08-26] MEDS: OXYCODONE HCL/ACETAMINOPHEN 5/325MG TABLET PO PRN ×3 (12:57→21:23)
[2020-08-26 16:00] VITALS: BP 105/72
[2020-08-26] MEDS ORDERED: TUSSL MT (16:12)
[2020-08-26] MEDS ORDERED: OXYC1TAB21 PO (16:12)
[2020-08-26] MEDS ORDERED: DOCU250C14 PO (16:12)
[2020-08-26] MEDS: MONTELUKAST SODIUM 10MG TABLET PO SCH (16:38)
[2020-08-26 20:00] VITALS: BP 96/73
[2020-08-26] MEDS: ZOLPIDEM TARTRATE 5MG TABLET PO PRN (21:59)
[2020-08-27] VITALS: BP 98/65
[2020-08-27] MEDS: OXYCODONE HCL/ACETAMINOPHEN 5/325MG TABLET PO PRN ×3 (01:24→09:43)
[2020-08-27] MEDS: IPRATROPIUM BROMIDE (0.02%) 0.5MG/2.5ML NEB HHN SCH ×2 (01:28→10:04)
[2020-08-27 04:00] VITALS: BP 97/70
[2020-08-27 08:00] VITALS: BP 94/68
[2020-08-27] MEDS: ENOXAPARIN 30MG/0.3ML SYR SUBCUT SCH (08:52)
[2020-08-27] MEDS: PREDNISONE 20MG TABLET PO SCH (08:52)
[2020-08-27] MEDS: DOCUSATE SODIUM 250MG CAPSULE PO SCH (08:52)
[2020-08-27] MEDS: GUAIFENESIN 600MG ER TABLET PO SCH (08:52)
[2020-08-27 12:00] VITALS: BP 98/73
== END 2020-08-27 14:05 | disposition home or self-care (01) | DRG 291 ==
LOC: ER 21:23 → EDBEDREQSVC 08-19 06:30 → EDBEDREQ 08-19 06:30 → EDBEDREQTM 08-19 06:30 → EDBEDREQDT 08-19 06:30 → 7WST 08-19 06:33 → EDBEDREQ 08-19 06:34 → ENRESERV 08-19 08:36 → 5WST 08-20 00:13
PROVIDERS: ADMIT Internal Medicine; ATTEND Internal Medicine
DX: I11.0 Hypertensive heart disease with heart failure (principal); J96.20 Acute and chronic respiratory failure, unspecified whether with hypoxia or hypercapnia; J98.11 Atelectasis; E44.0 Moderate protein-calorie malnutrition; E87.1 Hypo-osmolality and hyponatremia; E87.2 Acidosis; M48.54XA Collapsed vertebra, not elsewhere classified, thoracic region, initial encounter for fracture; I50.33 Acute on chronic diastolic (congestive) heart failure; B19.20 Unspecified viral hepatitis C without hepatic coma; E66.9 Obesity, unspecified; R74.01 Elevation of levels of liver transaminase levels; J43.9 Emphysema, unspecified; J30.9 Allergic rhinitis, unspecified; E87.5 Hyperkalemia; G89.29 Other chronic pain; T38.0X5A Adverse effect of glucocorticoids and synthetic analogues, initial encounter; Z20.822 Contact with and (suspected) exposure to COVID-19; K21.9 Gastro-esophageal reflux disease without esophagitis; I27.20 Pulmonary hypertension, unspecified; M19.90 Unspecified osteoarthritis, unspecified site; F17.200 Nicotine dependence, unspecified, uncomplicated; Z79.52 Long term (current) use of systemic steroids; Z99.81 Dependence on supplemental oxygen; Z87.440 Personal history of urinary (tract) infections; Z68.32 Body mass index [BMI] 32.0-32.9, adult; Z91.040 Latex allergy status; Z91.09 Other allergy status, other than to drugs and biological substances; Z79.51 Long term (current) use of inhaled steroids; Z79.899 Other long term (current) drug therapy; Y92.89 Other specified places as the place of occurrence of the external cause; Z71.3 Dietary counseling and surveillance; Z88.8 Allergy status to other drugs, medicaments and biological substances
CPT/HCPCS: 36415; 71045; 72141; 72146; 72148; 80048; 80053; 81003; 82962; 83605; 83880; 84132; 84145; 84484; 85025; 93005; 94640; 97162; 99285; C1893; J1160; J1650; J1815; J1940; J1956; J2270; J2930; J3370; J3475; J3490; J7512; J7626; U0003; A4315

== ENCOUNTER 2021-02-13 11:44 | Inpatient (IN) | payer MEDICARE, MEDICAID ==
[~2021-02-13] VITALS: Ht 157.5 cm; Wt 68.2 kg
[~2021-02-13 11:44] MED LIST changes: -DILT60TA35 PO; +DOCU250C14 PO; +FLUT1DIS3 INH; -HYDR-519 PO; +IPRA3AMP9 NEB; -LISI40TA13 PO; +OXYC1TAB21 PO
[2021-02-13] MEDS ORDERED: METHYLPREDNISOLONE SOD SUCC 125 MG/2 ML VIAL IV STA (12:35)
[2021-02-13] MEDS ORDERED: IPRATROPIUM BROMIDE (0.02%) 0.5MG/2.5ML NEB HHN STA (12:35)
[2021-02-13] MEDS ORDERED: FUROSEMIDE 40MG/4ML VIAL IVP ONE (12:45)
[2021-02-13] MEDS: ALBUTEROL (0.083%) 2.5MG/3ML NEB HHN SCH ×3 (13:30→15:15)
[2021-02-13 14:01] LABS: CHLORIDE 104 mEq/L (98-107)
[2021-02-13 14:09] LABS: BASOPHILS % 0.4 % (0.0-2.0); EOSINOPHILS % 1.1 % (0.0-5.0); HEMATOCRIT. 30.7 % (36.0-48.0); HEMOGLOBIN. 9.8 g/dL (12.0-16.0); LYMPHOCYTES % 8.8 % (20.0-50.0); MEAN CORPUSCULAR HEMOGLOBIN 25.1 pg (28.0-32.0); MEAN CORPUSCULAR VOLUME 78.9 fL (81.0-99.0); MEAN PLATELET VOLUME 7.6 fl (7.4-10.4); MONOCYTES % 11.4 % (2.0-8.0); NEUTROPHILS % 78.3 % (40.0-76.0); PLATELET 243 x1000/uL (130-400); RED BLOOD CELL COUNT 3.89 mill/uL (4.2-5.4); RED CELL DISTRIBUTION WIDTH 20.3 % (11.6-14.6)
[2021-02-13] MEDS ORDERED: MORPHINE SULFATE 2 MG/ML CPJ (NOT FOR IM USE) IV ONE (14:15)
[2021-02-13 14:47] LABS: BG BASE EXCESS 4.7 mmol/L (-2.0-2.0); BG CARBOXYHEMOGLOBIN 0.3 % (0.5-1.5); BG FRACTION INSPIRED OXYGEN 34; BG HCO3 ACT 29.4 mmol/L (22.0-26.0); BG METHEMOGLOBIN 0.3 % (0.0-1.5); BG OXYHEMOGLOBIN 98.4 % (94.0-97.0); BG PCO2 44.3 mmHg (35.0-45.0); BG PO2 152.4 mmHg (75.0-100.0); BG SAMPLE SITE RIGHT RADIAL; BG TOTAL HEMOGLOBIN 10.1 g/dL (12.0-18.0); BG VENT MODE NASAL CANNULA
[2021-02-13] MEDS ORDERED: MAGNESIUM/ALUMINUM HYDROXIDE/SIMETHICONE 30ML UDC PO PRN (18:00)
[2021-02-13] MEDS ORDERED: ACETAMINOPHEN 325MG TABLET PO PRN (18:00)
[2021-02-13] MEDS ORDERED: ONDANSETRON HCL 4MG/2ML INJ IV PRN (18:00)
[2021-02-13] MEDS ORDERED: CLONIDINE 0.1MG TABLET PO PRN (18:00)
[2021-02-13] MEDS ORDERED: IPRATROPIUM/ALBUTEROL 0.5-3(2.5)MG/3ML NEB HHN PRN (18:00)
[2021-02-13] MEDS ORDERED: DEXTROSE 50% WATER 50ML SYRINGE IV PRN (18:00)
[2021-02-13] MEDS: ACETAMINOPHEN 325MG TABLET PO PRN (18:17)
[2021-02-13] MEDS: INSULIN LISPRO 100 UNITS/ML SUBCUT SCH ×2 (18:20→23:00)
[2021-02-13] MEDS: BLOOD SUGAR DIAGNOSTIC STRIP TEST SCH ×2 (18:27→23:00)
[2021-02-13] MEDS: DIPHENHYDRAMINE 50MG/ML VIAL IV PRN (19:42)
[2021-02-13] MEDS ORDERED: PROMETHAZINE/DEXTROMETHORPHAN 6.25-15MG/5ML BOTTLE 120ML PO PRN (19:45)
[2021-02-13] MEDS ORDERED: NALOXONE HCL 0.4MG/ML VIAL IV PRN (19:45)
[2021-02-13] MEDS ORDERED: MAGNESIUM HYDROXIDE 400MG/5ML 30ML UDC PO PRN (19:45)
[2021-02-13] MEDS ORDERED: BENZONATATE 200MG CAPSULE PO PRN (19:45)
[2021-02-13] MEDS: HYDROCODONE/ACETAMINOPHEN 10/325MG TABLET PO PRN (20:57)
[2021-02-13] MEDS ORDERED: ZOLPIDEM TARTRATE 5MG TABLET PO PRN (21:00)
[2021-02-13] MEDS: OMEPRAZOLE 20MG CAPSULE EXTENDED RELEASE PO SCH (22:58)
[2021-02-13] MEDS: METHYLPREDNISOLONE SOD SUCC 125 MG/2 ML VIAL IV SCH (22:59)
[2021-02-13] MEDS: SODIUM CHLORIDE 0.9% INJ 3ML FLUSH IVF SCH (22:59)
[2021-02-13] MEDS: GUAIFENESIN 600MG ER TABLET PO SCH (22:59)
[2021-02-13 23:00] VITALS: BP 126/75
[2021-02-13] MEDS: IPRATROPIUM/ALBUTEROL 0.5-3(2.5)MG/3ML NEB HHN SCH (23:03)
[2021-02-13] MEDS: ZOLPIDEM TARTRATE 5MG TABLET PO PRN (23:10)
[2021-02-14] VITALS: BP 126/75
[2021-02-14] MEDS: IPRATROPIUM/ALBUTEROL 0.5-3(2.5)MG/3ML NEB HHN SCH ×4 (02:05→21:35)
[2021-02-14] MEDS: HYDROCODONE/ACETAMINOPHEN 10/325MG TABLET PO PRN ×5 (03:21→23:55)
[2021-02-14 04:00] VITALS: BP 107/76
[2021-02-14] MEDS: OMEPRAZOLE 20MG CAPSULE EXTENDED RELEASE PO SCH ×2 (06:21→20:01)
[2021-02-14] MEDS: METHYLPREDNISOLONE SOD SUCC 125 MG/2 ML VIAL IV SCH ×3 (06:21→21:13)
[2021-02-14] MEDS: SODIUM CHLORIDE 0.9% INJ 3ML FLUSH IVF SCH ×3 (06:22→21:15)
[2021-02-14] MEDS: BLOOD SUGAR DIAGNOSTIC STRIP TEST SCH ×4 (06:22→20:10)
[2021-02-14] MEDS: INSULIN LISPRO 100 UNITS/ML SUBCUT SCH ×4 (07:10→20:10)
[2021-02-14 08:00] VITALS: BP 105/76
[2021-02-14] MEDS: FUROSEMIDE 40MG/4ML VIAL IVP SCH (08:56)
[2021-02-14] MEDS: GUAIFENESIN 600MG ER TABLET PO SCH ×2 (08:56→20:10)
[2021-02-14] MEDS: ACETAMINOPHEN 325MG TABLET PO PRN (12:40)
[2021-02-14] MEDS: AZITHROMYCIN 500 MG TABLET PO SCH (15:15)
[2021-02-14 16:00] VITALS: BP 115/84
[2021-02-14] MEDS: DOCUSATE SODIUM 100MG CAPSULE PO SCH (17:13)
[2021-02-14 20:00] VITALS: BP 110/86
[2021-02-14] MEDS: ZOLPIDEM TARTRATE 5MG TABLET PO PRN (20:02)
[2021-02-14] MEDS: DIPHENHYDRAMINE 50MG/ML VIAL IV PRN (23:56)
[2021-02-15] VITALS: BP 109/42
[2021-02-15] MEDS: IPRATROPIUM/ALBUTEROL 0.5-3(2.5)MG/3ML NEB HHN SCH ×4 (03:13→18:00)
[2021-02-15] MEDS: DIPHENHYDRAMINE 50MG/ML VIAL IV PRN ×4 (03:39→20:47)
[2021-02-15] MEDS: HYDROCODONE/ACETAMINOPHEN 10/325MG TABLET PO PRN ×4 (03:40→20:04)
[2021-02-15 04:00] VITALS: BP 98/68
[2021-02-15] MEDS: METHYLPREDNISOLONE SOD SUCC 125 MG/2 ML VIAL IV SCH ×3 (05:27→21:00)
[2021-02-15] MEDS: SODIUM CHLORIDE 0.9% INJ 3ML FLUSH IVF SCH ×2 (05:27→14:00)
[2021-02-15] MEDS: OMEPRAZOLE 20MG CAPSULE EXTENDED RELEASE PO SCH ×2 (05:34→20:26)
[2021-02-15] MEDS: INSULIN LISPRO 100 UNITS/ML SUBCUT SCH ×4 (05:36→20:26)
[2021-02-15] MEDS: BLOOD SUGAR DIAGNOSTIC STRIP TEST SCH ×4 (05:36→20:26)
[2021-02-15 08:00] VITALS: BP 119/87
[2021-02-15] MEDS: GUAIFENESIN 600MG ER TABLET PO SCH ×3 (09:00→20:25)
[2021-02-15] MEDS: DOCUSATE SODIUM 100MG CAPSULE PO SCH ×2 (09:13→18:17)
[2021-02-15] MEDS: AZITHROMYCIN 500 MG TABLET PO SCH (09:14)
[2021-02-15] MEDS: FUROSEMIDE 40MG/4ML VIAL IVP SCH (09:14)
[2021-02-15 12:00] VITALS: BP 106/79
[2021-02-15 16:00] VITALS: BP 102/69
[2021-02-15] MEDS ORDERED: DIPHENHYDRAMINE 50MG/ML VIAL IV PRN (18:00)
[2021-02-15 20:00] VITALS: BP 119/93
[2021-02-15] MEDS: ZOLPIDEM TARTRATE 5MG TABLET PO PRN (20:50)
[2021-02-16] VITALS (7 sets, daily range): BP systolic 98–138; BP diastolic 65–95
[2021-02-16] MEDS: HYDROCODONE/ACETAMINOPHEN 10/325MG TABLET PO PRN ×6 (01:00→22:57)
[2021-02-16] MEDS: IPRATROPIUM/ALBUTEROL 0.5-3(2.5)MG/3ML NEB HHN SCH ×4 (02:55→18:00)
[2021-02-16] MEDS: DIPHENHYDRAMINE 50MG/ML VIAL IV PRN ×2 (05:41→12:32)
[2021-02-16] MEDS: METHYLPREDNISOLONE SOD SUCC 125 MG/2 ML VIAL IV SCH ×3 (05:41→21:49)
[2021-02-16] MEDS: SODIUM CHLORIDE 0.9% INJ 3ML FLUSH IVF SCH ×2 (05:48→21:50)
[2021-02-16] MEDS: BLOOD SUGAR DIAGNOSTIC STRIP TEST SCH ×4 (06:15→21:00)
[2021-02-16] MEDS: OMEPRAZOLE 20MG CAPSULE EXTENDED RELEASE PO SCH ×2 (06:15→21:00)
[2021-02-16] MEDS: INSULIN LISPRO 100 UNITS/ML SUBCUT SCH ×3 (06:16→21:00)
[2021-02-16] MEDS: GUAIFENESIN 600MG ER TABLET PO SCH ×3 (09:00→21:00)
[2021-02-16] MEDS: FUROSEMIDE 40MG/4ML VIAL IVP SCH ×2 (09:00→09:41)
[2021-02-16] MEDS: AZITHROMYCIN 500 MG TABLET PO SCH (09:41)
[2021-02-16] MEDS: DOCUSATE SODIUM 100MG CAPSULE PO SCH ×2 (09:41→17:00)
[2021-02-16] MEDS: ZOLPIDEM TARTRATE 5MG TABLET PO PRN (20:14)
[2021-02-17] VITALS: BP 121/83
[2021-02-17 04:00] VITALS: BP 122/92
[2021-02-17] MEDS: HYDROCODONE/ACETAMINOPHEN 10/325MG TABLET PO PRN ×2 (04:21→08:42)
[2021-02-17] MEDS: METHYLPREDNISOLONE SOD SUCC 125 MG/2 ML VIAL IV SCH (05:25)
[2021-02-17] MEDS: SODIUM CHLORIDE 0.9% INJ 3ML FLUSH IVF SCH (05:25)
[2021-02-17] MEDS: OMEPRAZOLE 20MG CAPSULE EXTENDED RELEASE PO SCH (05:26)
[2021-02-17] MEDS: BLOOD SUGAR DIAGNOSTIC STRIP TEST SCH (05:26)
[2021-02-17] MEDS: INSULIN LISPRO 100 UNITS/ML SUBCUT SCH (05:44)
[2021-02-17 08:00] VITALS: BP 136/100
[2021-02-17] MEDS: IPRATROPIUM/ALBUTEROL 0.5-3(2.5)MG/3ML NEB HHN SCH (08:05)
[2021-02-17] MEDS: DOCUSATE SODIUM 100MG CAPSULE PO SCH ×2 (08:37→08:47)
[2021-02-17] MEDS: GUAIFENESIN 600MG ER TABLET PO SCH ×2 (08:37→08:48)
[2021-02-17] MEDS: AZITHROMYCIN 500 MG TABLET PO SCH ×2 (08:37→08:48)
[2021-02-17] MEDS: FUROSEMIDE 40MG/4ML VIAL IVP SCH ×2 (08:37→08:47)
[2021-02-17 08:42] VITALS: BP 136/100
== END 2021-02-17 11:00 | disposition home or self-care (01) | DRG 189 ==
LOC: ER 11:54 → 8WST 15:18 → ENRESERV 20:25
PROVIDERS: ADMIT Internal Medicine; ATTEND Internal Medicine
DX: J96.01 Acute respiratory failure with hypoxia (principal); J44.1 Chronic obstructive pulmonary disease with (acute) exacerbation; E44.0 Moderate protein-calorie malnutrition; M48.54XA Collapsed vertebra, not elsewhere classified, thoracic region, initial encounter for fracture; J44.0 Chronic obstructive pulmonary disease with (acute) lower respiratory infection; J20.9 Acute bronchitis, unspecified; M19.90 Unspecified osteoarthritis, unspecified site; E11.9 Type 2 diabetes mellitus without complications; G89.29 Other chronic pain; I27.20 Pulmonary hypertension, unspecified; I71.9 Aortic aneurysm of unspecified site, without rupture; J30.9 Allergic rhinitis, unspecified; K21.9 Gastro-esophageal reflux disease without esophagitis; F41.1 Generalized anxiety disorder; I50.9 Heart failure, unspecified; I11.0 Hypertensive heart disease with heart failure; E78.5 Hyperlipidemia, unspecified; E66.9 Obesity, unspecified; M54.9 Dorsalgia, unspecified; Z20.822 Contact with and (suspected) exposure to COVID-19; Z68.27 Body mass index [BMI] 27.0-27.9, adult; Z99.81 Dependence on supplemental oxygen; Z82.49 Family history of ischemic heart disease and other diseases of the circulatory system; Z83.3 Family history of diabetes mellitus; Z83.49 Family history of other endocrine, nutritional and metabolic diseases; Z88.8 Allergy status to other drugs, medicaments and biological substances; Z91.040 Latex allergy status; Z87.891 Personal history of nicotine dependence
CPT/HCPCS: 36415; 36600; 71045; 80053; 82375; 82805; 82962; 83036; 83880; 84484; 85025; 87426; 93005; 94640; 94644; 99285; J1200; J1815; J1940; J2270; J2930

== ENCOUNTER 2021-03-28 16:56 | Inpatient (IN) | payer MEDICARE, MEDICAID ==
[~2021-03-28] VITALS: Ht 170.2 cm; Wt 60.8 kg
[~2021-03-28 16:56] MED LIST changes: -OXYC1TAB21 PO; +OXYC1TAB5 PO
[2021-03-28] MEDS ORDERED: IPRATROPIUM BROMIDE (0.02%) 0.5MG/2.5ML NEB HHN STA (20:36)
[2021-03-28] MEDS ORDERED: METHYLPREDNISOLONE SOD SUCC 125 MG/2 ML VIAL IV STA (20:36)
[2021-03-28] MEDS ORDERED: FUROSEMIDE 20MG/2ML VIAL IVP ONE (20:45)
[2021-03-28] MEDS ORDERED: ALBUTEROL (0.083%) 2.5MG/3ML NEB HHN SCH (21:00)
[2021-03-28] MEDS ORDERED: AZITHROMYCIN 500MG/250ML 250 ML IV ONE (22:15)
[2021-03-28] MEDS ORDERED: CEFTRIAXONE 1 G PREMIX 50 ML IV ONE (22:15)
[2021-03-29] MEDS ORDERED: AZITHROMYCIN 500 MG TABLET PO ONE
[2021-03-29] MEDS ORDERED: AMOXICILLIN/POTASSIUM CLAVULANATE 875/125MG TAB PO ONE
[2021-03-29] MEDS ORDERED: DEXAMETHASONE 4MG TABLET PO ONE
[2021-03-29 00:24] LABS: BASOPHILS % 0.4 % (0.0-2.0); EOSINOPHILS % 0.7 % (0.0-5.0); HEMATOCRIT. 36.8 % (36.0-48.0); LYMPHOCYTES % 7.6 % (20.0-50.0); MEAN CORPUSCULAR HEMOGLOBIN 25.5 pg (28.0-32.0); MEAN CORPUSCULAR VOLUME 84.9 fL (81.0-99.0); MEAN PLATELET VOLUME 7.9 fl (7.4-10.4); MONOCYTES % 9.1 % (2.0-8.0); NEUTROPHILS % 82.2 % (40.0-76.0); PLATELET 286 x1000/uL (130-400); RED BLOOD CELL COUNT 4.33 mill/uL (4.2-5.4)
[2021-03-29] MEDS ORDERED: HYDROCODONE/ACETAMINOPHEN 5/325MG TABLET PO ONE (00:30)
[2021-03-29 01:18] LABS: CHLORIDE 106 mEq/L (98-107); ETHANOL BLOOD < 10 mg/dL
[2021-03-29] MEDS ORDERED: DEXTROSE 50% WATER 50ML SYRINGE IV ONE (01:30)
[2021-03-29] MEDS ORDERED: DEXTROSE 50% WATER 50ML SYRINGE IV SCH (02:30)
[2021-03-29] MEDS ORDERED: DEXT 10% WATER 1,000 ML IV SCH (02:45)
[2021-03-29 05:52] LABS: PLATELET ESTIMATE NORMAL
[2021-03-29] MEDS ORDERED: ONDANSETRON HCL 4MG/2ML INJ IV PRN (10:15)
[2021-03-29] MEDS ORDERED: ACETAMINOPHEN 325MG TABLET PO PRN (10:15)
[2021-03-29] MEDS ORDERED: METHYLPREDNISOLONE SOD SUCC 40 MG/ML VIAL IV SCH (10:15)
[2021-03-29 10:29] LABS: INR 1.1; PROTHROMBIN TIME 11.8 sec (9.6-11.0)
[2021-03-29] MEDS ORDERED: LIDOCAINE HCL 1% 20ML VIAL (Pyxis) INJ ONE (11:22)
[2021-03-29] MEDS: ENOXAPARIN 40MG/0.4ML SYR SUBCUT SCH (12:49)
[2021-03-29] MEDS: FUROSEMIDE 40MG/4ML VIAL IVP SCH (12:49)
[2021-03-29] MEDS: HYDROCODONE/ACETAMINOPHEN 10/325MG TABLET PO PRN ×2 (12:54→20:37)
[2021-03-29] MEDS ORDERED: IPRATROPIUM BROMIDE (0.02%) 0.5MG/2.5ML NEB HHN PRN (13:15)
[2021-03-29 13:19] LABS: BG BASE EXCESS -1.8 mmol/L (-2.0-2.0); BG CARBOXYHEMOGLOBIN 0.1 % (0.5-1.5); BG DEOXYHEMOGLOBIN 1.8 % (0.0-5.0); BG FRACTION INSPIRED OXYGEN 40; BG HCO3 ACT 23.2 mmol/L (22.0-26.0); BG METHEMOGLOBIN 0.2 % (0.0-1.5); BG OXYGEN SATURATION 98.2 % (92.0-98.5); BG OXYHEMOGLOBIN 97.9 % (94.0-97.0); BG PCO2 40.1 mmHg (35.0-45.0); BG PO2 108.4 mmHg (75.0-100.0); BG SAMPLE SITE RIGHT RADIAL; BG VENT MODE NASAL CANNULA
[2021-03-29 20:00] VITALS: BP_SYST 100; BP_SYST 104; BP_DIAS 68; BP_DIAS 69
[2021-03-29] MEDS: FAMOTIDINE 20MG TABLET PO SCH (20:37)
[2021-03-29] MEDS: METHYLPREDNISOLONE SOD SUCC 125 MG/2 ML VIAL IV SCH (21:48)
[2021-03-29] MEDS: IPRATROPIUM BROMIDE (0.02%) 0.5MG/2.5ML NEB HHN SCH (22:45)
[2021-03-29] MEDS: FLUTICASONE PROPIONATE 50MCG/SPRAY BOTTLE BOTHNSTRLS SCH (22:56)
[2021-03-30] VITALS: BP 102/73
[2021-03-30 04:00] VITALS: BP 104/71
[2021-03-30] MEDS: IPRATROPIUM BROMIDE (0.02%) 0.5MG/2.5ML NEB HHN SCH ×5 (04:15→15:31)
[2021-03-30] MEDS: METHYLPREDNISOLONE SOD SUCC 125 MG/2 ML VIAL IV SCH ×2 (06:28→14:00)
[2021-03-30] MEDS: FUROSEMIDE 40MG/4ML VIAL IVP SCH ×2 (06:29→17:15)
[2021-03-30 07:32] LABS: HEMATOCRIT. 30.6 % (36.0-48.0); HEMOGLOBIN. 9.9 g/dL (12.0-16.0); MEAN CORPUSCULAR HEMOGLOBIN 25.6 pg (28.0-32.0); MEAN CORPUSCULAR VOLUME 79.3 fL (81.0-99.0); MEAN PLATELET VOLUME 8.6 fl (7.4-10.4); PLATELET 297 x1000/uL (130-400); RED BLOOD CELL COUNT 3.86 mill/uL (4.2-5.4)
[2021-03-30 07:38] LABS: CHLORIDE 106 mEq/L (98-107)
[2021-03-30] MEDS: BLOOD SUGAR DIAGNOSTIC STRIP TEST SCH ×4 (07:45→21:00)
[2021-03-30 08:00] VITALS: BP 100/78
[2021-03-30] MEDS: LORATADINE 10MG TABLET PO SCH (09:20)
[2021-03-30] MEDS: FLUTICASONE PROPIONATE 50MCG/SPRAY BOTTLE BOTHNSTRLS SCH ×2 (09:20→22:33)
[2021-03-30] MEDS: HYDROCODONE/ACETAMINOPHEN 10/325MG TABLET PO PRN ×2 (09:21→23:59)
[2021-03-30] MEDS ORDERED: SODIUM POLYSTYRENE SULFONATE 15 G/60 ML BOT PO SCH ×2 (10:00)
[2021-03-30] MEDS: ENOXAPARIN 40MG/0.4ML SYR SUBCUT SCH (11:53)
[2021-03-30 12:00] VITALS: BP 100/81
[2021-03-30] MEDS: ACETYLCYSTEINE 100MG/ML 10% VIAL 4ML INH SCH (12:05)
[2021-03-30 12:36] LABS: PLATELET ESTIMATE NORMAL
[2021-03-30] MEDS ORDERED: NALOXONE HCL 0.4MG/ML VIAL IV PRN (12:45)
[2021-03-30] MEDS ORDERED: ALBUTEROL 6.7GM HFA INHALER ORI PRN (12:45)
[2021-03-30] MEDS ORDERED: ALBUTEROL (0.083%) 2.5MG/3ML NEB HHN PRN (13:00)
[2021-03-30 16:00] VITALS: BP 110/81
[2021-03-30] MEDS: METHYLPREDNISOLONE SOD SUCC 40 MG/ML VIAL IV SCH (17:00)
[2021-03-30] MEDS: DIGOXIN 500MCG/2ML AMP IV SCH (18:00)
[2021-03-30 20:00] VITALS: BP 110/83
[2021-03-30] MEDS: IPRATROPIUM/ALBUTEROL 0.5-3(2.5)MG/3ML NEB HHN SCH (20:24)
[2021-03-30] MEDS: FAMOTIDINE 20MG TABLET PO SCH (22:32)
[2021-03-31] MEDS: ACETYLCYSTEINE 100MG/ML 10% VIAL 4ML INH SCH ×3 (01:20→13:04)
[2021-03-31] MEDS: IPRATROPIUM/ALBUTEROL 0.5-3(2.5)MG/3ML NEB HHN SCH ×4 (01:20→20:06)
[2021-03-31] MEDS: FUROSEMIDE 40MG/4ML VIAL IVP SCH ×2 (06:39→17:43)
[2021-03-31] MEDS: BLOOD SUGAR DIAGNOSTIC STRIP TEST SCH ×4 (06:39→21:00)
[2021-03-31] MEDS: HYDROCODONE/ACETAMINOPHEN 10/325MG TABLET PO PRN ×3 (06:39→17:43)
[2021-03-31 07:41] LABS: CHLORIDE 105 mEq/L (98-107)
[2021-03-31 08:00] VITALS: BP 104/65
[2021-03-31] MEDS: METHYLPREDNISOLONE SOD SUCC 40 MG/ML VIAL IV SCH ×2 (09:11→17:43)
[2021-03-31] MEDS: LORATADINE 10MG TABLET PO SCH (09:11)
[2021-03-31] MEDS: FLUTICASONE PROPIONATE 50MCG/SPRAY BOTTLE BOTHNSTRLS SCH ×2 (09:11→21:00)
[2021-03-31] MEDS ORDERED: HYDROCODONE/ACETAMINOPHEN 5/325MG TABLET PO PRN (11:45)
[2021-03-31 12:00] VITALS: BP 90/73
[2021-03-31] MEDS: ENOXAPARIN 40MG/0.4ML SYR SUBCUT SCH (12:00)
[2021-03-31 16:00] VITALS: BP 102/69
[2021-03-31] MEDS: DIGOXIN 500MCG/2ML AMP IV SCH (16:31)
[2021-03-31 20:00] VITALS: BP 100/76
[2021-03-31] MEDS: FAMOTIDINE 20MG TABLET PO SCH ×2 (21:30)
[2021-04-01] VITALS: BP 114/59
[2021-04-01] MEDS: ACETYLCYSTEINE 100MG/ML 10% VIAL 4ML INH SCH ×2 (00:20→09:09)
[2021-04-01] MEDS: HYDROCODONE/ACETAMINOPHEN 10/325MG TABLET PO PRN ×4 (01:44→21:20)
[2021-04-01 04:00] VITALS: BP 103/78
[2021-04-01] MEDS: FUROSEMIDE 40MG/4ML VIAL IVP SCH ×2 (06:33→16:53)
[2021-04-01] MEDS: BLOOD SUGAR DIAGNOSTIC STRIP TEST SCH ×4 (06:41→21:01)
[2021-04-01 08:00] VITALS: BP 139/67
[2021-04-01] MEDS: PREDNISONE 20MG TABLET PO SCH (08:06)
[2021-04-01] MEDS: FLUTICASONE PROPIONATE 50MCG/SPRAY BOTTLE BOTHNSTRLS SCH ×2 (08:07→21:19)
[2021-04-01] MEDS: LORATADINE 10MG TABLET PO SCH (08:07)
[2021-04-01] MEDS: IPRATROPIUM/ALBUTEROL 0.5-3(2.5)MG/3ML NEB HHN SCH ×2 (09:08)
[2021-04-01 12:00] VITALS: BP 109/79
[2021-04-01] MEDS: ENOXAPARIN 40MG/0.4ML SYR SUBCUT SCH (12:00)
[2021-04-01] MEDS ORDERED: DIGOXIN 500MCG/2ML AMP IV SCH (13:15)
[2021-04-01] MEDS ORDERED: FUROSEMIDE 40MG/4ML VIAL IVP NR (14:15)
[2021-04-01 16:00] VITALS: BP 104/69
[2021-04-01] MEDS ORDERED: MIDODRINE HCL 5MG TABLET PO NR (16:45)
[2021-04-01] MEDS: DILTIAZEM HCL 30MG TABLET PO SCH (18:45)
[2021-04-01 20:00] VITALS: BP 121/42
[2021-04-01] MEDS: FAMOTIDINE 20MG TABLET PO SCH (21:19)
[2021-04-01] MEDS: MIDODRINE HCL 5MG TABLET PO SCH (22:00)
[2021-04-02] VITALS: BP 91/64
[2021-04-02] MEDS: DILTIAZEM HCL 30MG TABLET PO SCH ×4 (00:30→19:07)
[2021-04-02] MEDS: HYDROCODONE/ACETAMINOPHEN 10/325MG TABLET PO PRN ×4 (03:47→21:53)
[2021-04-02 04:00] VITALS: BP 116/79
[2021-04-02] MEDS: MIDODRINE HCL 5MG TABLET PO SCH ×3 (06:00→21:13)
[2021-04-02] MEDS: FUROSEMIDE 40MG/4ML VIAL IVP SCH ×2 (07:01→21:12)
[2021-04-02] MEDS: BLOOD SUGAR DIAGNOSTIC STRIP TEST SCH ×4 (07:01→21:21)
[2021-04-02 07:15] LABS: CHLORIDE 105 mEq/L (98-107)
[2021-04-02 07:38] LABS: DIGOXIN 0.8 ng/mL (0.9-2.0)
[2021-04-02 08:00] VITALS: BP 109/78
[2021-04-02] MEDS: PREDNISONE 20MG TABLET PO SCH (09:47)
[2021-04-02] MEDS: LORATADINE 10MG TABLET PO SCH (09:47)
[2021-04-02 12:00] VITALS: BP 118/80
[2021-04-02] MEDS: ENOXAPARIN 40MG/0.4ML SYR SUBCUT SCH (12:32)
[2021-04-02 16:00] VITALS: BP 112/84
[2021-04-02] MEDS: DIGOXIN 500MCG/2ML AMP IV SCH (19:01)
[2021-04-02 20:00] VITALS: BP 100/70
[2021-04-02] MEDS: FAMOTIDINE 20MG TABLET PO SCH (21:12)
[2021-04-03] VITALS (8 sets, daily range): BP systolic 90–142; BP diastolic 66–96
[2021-04-03] MEDS: DILTIAZEM HCL 30MG TABLET PO SCH ×5 (00:13→18:00)
[2021-04-03] MEDS: HYDROCODONE/ACETAMINOPHEN 10/325MG TABLET PO PRN ×3 (03:59→21:36)
[2021-04-03] MEDS: MIDODRINE HCL 5MG TABLET PO SCH ×3 (06:00→21:36)
[2021-04-03] MEDS: BLOOD SUGAR DIAGNOSTIC STRIP TEST SCH ×4 (06:42→21:00)
[2021-04-03] MEDS: FUROSEMIDE 40MG/4ML VIAL IVP SCH ×2 (06:59→17:15)
[2021-04-03] MEDS: ENOXAPARIN 40MG/0.4ML SYR SUBCUT SCH (12:00)
[2021-04-03] MEDS: LORATADINE 10MG TABLET PO SCH (12:08)
[2021-04-03] MEDS: PREDNISONE 20MG TABLET PO SCH (12:09)
[2021-04-03] MEDS ORDERED: FURO-151 MT (12:20)
[2021-04-03] MEDS ORDERED: P20 PO (12:20)
[2021-04-03] MEDS ORDERED: ATROV INH (12:20)
[2021-04-03] MEDS ORDERED: DIGO125T80 MT (12:20)
[2021-04-03] MEDS ORDERED: NALOXONE HCL 0.4MG/ML VIAL IV PRN (13:00)
[2021-04-03] MEDS: DIGOXIN 500MCG/2ML AMP IV SCH (18:00)
[2021-04-03] MEDS: FAMOTIDINE 20MG TABLET PO SCH (21:36)
== END 2021-04-03 23:01 | disposition home health service (06) | DRG 637 ==
LOC: ER 16:56 → MICUSO 23:26 → EDBEDREQTM 23:28 → EDBEDREQ 23:28 → 7WST 03-29 08:10 → MICUSO 03-29 09:02 → 8WST 03-29 17:35
PROVIDERS: ADMIT Internal Medicine; ATTEND Internal Medicine
PROC: 05HY33Z Insertion of Infusion Device into Upper Vein, Percutaneous Approach (ICD-10-PCS; principal; 2021-03-29)
PROC: B54MZZA Ultrasonography of Right Upper Extremity Veins, Guidance (ICD-10-PCS; 2021-03-29)
DX: E11.649 Type 2 diabetes mellitus with hypoglycemia without coma (principal); J96.01 Acute respiratory failure with hypoxia; E43 Unspecified severe protein-calorie malnutrition; I50.33 Acute on chronic diastolic (congestive) heart failure; J44.1 Chronic obstructive pulmonary disease with (acute) exacerbation; M48.54XA Collapsed vertebra, not elsewhere classified, thoracic region, initial encounter for fracture; J84.9 Interstitial pulmonary disease, unspecified; E87.2 Acidosis; I11.0 Hypertensive heart disease with heart failure; N17.0 Acute kidney failure with tubular necrosis; D64.9 Anemia, unspecified; D72.829 Elevated white blood cell count, unspecified; E87.5 Hyperkalemia; I27.20 Pulmonary hypertension, unspecified; J30.9 Allergic rhinitis, unspecified; K21.9 Gastro-esophageal reflux disease without esophagitis; E78.5 Hyperlipidemia, unspecified; G47.30 Sleep apnea, unspecified; E66.01 Morbid (severe) obesity due to excess calories; Z20.822 Contact with and (suspected) exposure to COVID-19; S39.82XA Other specified injuries of lower back, initial encounter; X58.XXXA Exposure to other specified factors, initial encounter; M19.90 Unspecified osteoarthritis, unspecified site; Z91.14 Patient's other noncompliance with medication regimen; Z99.81 Dependence on supplemental oxygen; Z79.899 Other long term (current) drug therapy; Z91.19 Patient's noncompliance with other medical treatment and regimen; Z68.21 Body mass index [BMI] 21.0-21.9, adult; Z87.891 Personal history of nicotine dependence; Y93.89 Activity, other specified; Y92.89 Other specified places as the place of occurrence of the external cause; Y99.8 Other external cause status; Z88.8 Allergy status to other drugs, medicaments and biological substances; Z91.040 Latex allergy status
CPT/HCPCS: 36415; 36600; 71045; 76937; 80048; 80053; 80162; 80320; 82040; 82375; 82805; 82962; 83605; 83735; 83880; 84134; 84484; 85025; 93005; 93306; 94640; 97110; 97166; 97535; 99285; C1725; J0456; J0696; J1160; J1650; J1940; J2920; J2930; J3490; J7512; J7608; J8540; U0003; U0005; A4315; G0480

== ENCOUNTER 2021-04-07 12:50 | Emergency (ER) | payer MEDICARE, MEDICAID ==
[~2021-04-07] VITALS: Ht 162.6 cm; Wt 54.0 kg
[~2021-04-07 12:50] MED LIST changes: +ATROV INH; +DIGO125T80 MT; +FURO-151 MT; +P20 PO
[2021-04-07] MEDS ORDERED: IPRATROPIUM BROMIDE (0.02%) 0.5MG/2.5ML NEB HHN STA (13:25)
[2021-04-07] MEDS ORDERED: ALBUTEROL (0.083%) 2.5MG/3ML NEB HHN STA (13:25)
[2021-04-07] MEDS ORDERED: METHYLPREDNISOLONE SOD SUCC 125 MG/2 ML VIAL IV STA (13:25)
[2021-04-07] MEDS ORDERED: HYDROCODONE/ACETAMINOPHEN 10/325MG TABLET PO ONE (14:45)
[2021-04-07] MEDS ORDERED: PREDNISONE 20MG TABLET PO ONE (14:45)
[2021-04-07] MEDS ORDERED: HYDR-4001 MT (16:20)
[2021-04-07 19:46] VITALS: BP 88/55
== END 2021-04-07 19:57 | disposition home or self-care (01) ==
LOC: ER 13:04
DX: J44.1 Chronic obstructive pulmonary disease with (acute) exacerbation (principal); G89.29 Other chronic pain; I11.0 Hypertensive heart disease with heart failure; I50.9 Heart failure, unspecified; Z79.82 Long term (current) use of aspirin; Z88.8 Allergy status to other drugs, medicaments and biological substances; Z91.040 Latex allergy status
CPT/HCPCS: 71045; 93005; 99285; J7512

== ENCOUNTER 2021-04-14 23:38 | Emergency (ER) | payer MEDICARE, MEDICAID ==
[~2021-04-14] VITALS: Ht 162.6 cm; Wt 73.0 kg
[~2021-04-14 23:38] MED LIST changes: +HYDR-4001 MT
[2021-04-15 00:01] VITALS: BP 0/0
[2021-04-15] MEDS ORDERED: SODIUM CHLORIDE 0.9% 10ML VIAL ONE (08:52)
[2021-04-15] MEDS ORDERED: ETOMIDATE 2MG/ML 10ML VIAL IV ONE (08:52)
[2021-04-15] MEDS ORDERED: VECURONIUM BROMIDE 10 MG/VIAL IV ONE (08:52)
[2021-04-15] MEDS ORDERED: SODIUM BICARBONATE 8.4% 1 MEQ/ML 50ML SYR IV ONE (08:57)
[2021-04-15] MEDS ORDERED: EPINEPHRINE 0.1MG/ML (1:10,000) 10ML SYR ONE (08:57)
== END 2021-04-15 00:02 ==
LOC: ER 23:38
DX: I46.9 Cardiac arrest, cause unspecified (principal); J44.9 Chronic obstructive pulmonary disease, unspecified; I11.0 Hypertensive heart disease with heart failure; I50.9 Heart failure, unspecified; E11.9 Type 2 diabetes mellitus without complications; Z79.82 Long term (current) use of aspirin; Z88.8 Allergy status to other drugs, medicaments and biological substances; Z91.040 Latex allergy status
CPT/HCPCS: 31500; 92950; 99291; J3490